=== PATIENT | male | born 1945 | race Caucasian/White ===

== ENCOUNTER 2017-01-31 10:30 | Inpatient (IN) | payer MEDICARE ==
[2017-01-31] MEDS ORDERED: Azithromycin 250 MG TAB ONE (12:18)
[2017-01-31] MEDS ORDERED: cefTRIAXone\\ROCEPHIN 1 GM VIAL ONE (12:18)
[2017-01-31] MEDS ORDERED: Sodium Chloride 0.9% 100 ML ONE (12:19)
[2017-01-31] MEDS ORDERED: Sodium Chloride 0.9% 0 ML ONE (12:19)
--- NOTE | 2017-01-31 13:49 | CT ---
CT ABDOMEN AND PELVIS PERFORMED WITHOUT CONTRAST ENHANCEMENT: History: Abdominal pain and bloating, Shortness of breath. FINDINGS: There are moderate bilateral pleural effusions, right larger than left. There is atelectatic appearin g changes in the right lung base and more of an infiltrative appearing process within the lingula and left lower lobe. This could indicate asymmetric edema but I would favor this being pneumonic in natu re. The liver and spleen are within normal limits of size. Gallbladder is mildly distended. Pancreas is o bscured by unopacified bowel loops. There is some pancreatic calcifications in the pancreatic head an d body region. Right and left adrenal glands are normal in appearance. Vascular calcifications related to both right and left kidneys are noted. There is also a right sided pelvic transplant kidney which is not obstru cted. There is moderate ascites noted. CT OF PELVIS PERFORMED WITHOUT CONTRAST ENHANCEMENT: Ascites is noted. No adenopathy or mass. IMPRESSION: 1. Moderate bilateral pleural effusions, right larger than left, with right lower lobe atelectatic ch anges. 2. Patchy infiltrative appearing changes which have the appearance more of a pneumonic infiltrate inv olving the lingula and left lower lobe. 3. Moderate ascites. 4. Transplanted right kidney which is not obstructed. POS: TAHMINA
[2017-01-31 14:01] LABS: Troponin I 0.029 ng/mL (< 0.028)
--- NOTE | 2017-01-31 14:13 | RAD ---
FRONTAL VIEW CHEST: INDICATIONS: Difficulty breathing. COMPARISON: No prior comparisons are available. FINDINGS: There is moderate right pleural fluid, and there is mild left pleural fluid. Bilateral alveolar opac ities, left greater than right, may relate to edema. Superimposed pneumonia is not excluded. There is enlargement of the cardiac silhouette and pulmonary vasculature, with evidence of a prior sternoto my. There is vascular calcification and osseous degenerative change. Surgical anchors are seen at t he right humerus. Metallic clip is seen at the left axilla. IMPRESSION: Findings most consistent with decompensated congestive heart failure. Superimposed pneumonia is not excluded. Followup to resolution is recommended. POS: RHEA
[2017-01-31 14:20] LABS: ALT (SGPT) 22 U/L (8-55); AST (SGOT) 21 U/L (5-34); Alkaline Phosphatase 60 U/L (40-150); Anion Gap 13 mmol/L (10-20); BUN (Urea Nitrogen) 23 mg/dL (8.4-25.7); Bilirubin, Total 0.4 mg/dL (0.2-1.2); Calc. Creatinine Clearance 0 mL/min (70-130); Calcium 8.9 mg/dL (7.8-10.44); Carbon Dioxide 23 mmol/L (23-31); Chloride 111 mmol/L (98-107); Estimated GFR-MDRD 37; Globulin 2.6 g/dL (2.4-3.5); Lipase Less than 4 U/L (8-78)
[2017-01-31 14:21] LABS: Troponin I 0.031 ng/mL (< 0.028)
[2017-01-31 14:38] LABS: #Basophils 0.1 thou/uL (0.0-0.2); #Monocytes 1.5 thou/uL (0.11-0.59); #Neutrophils 13.3 thou/uL (1.40-6.50); %Basophils 0.9 % (0.0-1.0); %Eosinophils 0.1 % (0.0-10.0); %Lymphocytes 6.3 % (21.0-51.0); %Monocytes 9.6 % (0.0-10.0); Hematocrit 30.4 % (42.0-52.0); Mean Platelet Volume 6.5 fL (7.4-10.4); Red Blood Cell (RBC) Count 3.34 mill/uL (4.70-6.10)
[2017-01-31] MEDS ORDERED: Acetaminophen 325 MG TAB PO PRN ×2 (15:19→15:48)
[2017-01-31] MEDS ORDERED: Ondansetron HCl/PF 4 MG/2 ML Vial IVP PRN ×2 (15:19→15:48)
[2017-01-31] MEDS ORDERED: Ondansetron ODT 4 MG TAB SL PRN (15:19)
[2017-01-31] MEDS ORDERED: Loratadine 10 MG TAB PO PRN (15:48)
[2017-01-31] MEDS ORDERED: Ondansetron ODT 4 MG TAB PO PRN (15:48)
[2017-01-31] MEDS ORDERED: cloNIDine 0.1 MG TAB PO PRN (15:48)
[2017-01-31] MEDS ORDERED: Diabetic Tussin 200 MG/10 ML UDCUP PO PRN (15:48)
[2017-01-31] MEDS ORDERED: Zolpidem Tartrate 5 MG TAB PO PRN (15:48)
[2017-01-31] MEDS ORDERED: HYDROcodone/Acetaminophen 5/325 mg Tablet PO PRN (15:48)
[2017-01-31] MEDS ORDERED: Nitroglycerin 0.4 MG TAB (25 Tab Bottle) SL PRN (15:48)
[2017-01-31] MEDS ORDERED: Dextrose 50% Abboject 50 ML SYRINGE SLOW IVP PRN (15:48)
[2017-01-31] MEDS ORDERED: Artificial Tears 18 DROP/0.9 ML EA EYE PRN (15:48)
[2017-01-31] MEDS ORDERED: Dextrose 5% in Water 1,000 ML IV PRN (15:48)
[2017-01-31] MEDS ORDERED: Mag-Al 1200 mg/1200 mg/30 ML UDCUP PO PRN (15:48)
[2017-01-31] MEDS ORDERED: Senokot 8.6 MG TAB PO PRN (15:48)
[2017-01-31] MEDS ORDERED: Loperamide HCl 2 MG CAP PO PRN (15:48)
[2017-01-31] MEDS ORDERED: Eucerin (Mineral Oil/Petrolatum,White) 30 gm Jar TOP PRN (15:48)
[2017-01-31] MEDS ORDERED: Milk Of Magnesia 30 ML UDCUP PO PRN (15:48)
[2017-01-31] MEDS ORDERED: Sodium Chloride 0.65% Nasal 44 ML BOT EA NARE PRN (15:48)
[2017-01-31] MEDS ORDERED: cefTRIAXone\\ROCEPHIN 1 GM in Sodium Chloride 0.9% 100 ML IVPB SCH (15:48)
[2017-01-31] MEDS ORDERED: Chloraseptic Spray 180 ml Bottle PO PRN (15:48)
[2017-01-31] MEDS ORDERED: Calcium Carbonate 500 MG ChewTAB PO PRN (17:13)
[2017-01-31] MEDS ORDERED: Acetaminophen/Codeine 30-300mg Tablet PO PRN (17:13)
[2017-01-31] MEDS ORDERED: Sodium Chloride 0.9% 10 ML ONE (17:26)
--- NOTE | 2017-01-31 17:30 | HP ---
PRIMARY CARE PHYSICIAN: Dr. Chito Zabala. PRIMARY PILLOWCASE CLEANER: Dr. Kim. REASON FOR ADMISSION: Anasarca, acute on chronic congestive heart failure, acute kidney failure, and pneumonia. HISTORY OF PRESENT ILLNESS: A 71-year-old male who has history of coronary artery disease required C ABG as well as history of end-stage renal disease, was on dialysis and subsequently patient required kidney transplantation and patient is on immunosuppressive therapy. Patient reports that in April he had kidney transplantation done. Before that, he had cardiac wor kup and they found a blockage and patient was advised CABG, which was done in [place]. Patient was s upposed to follow up with nurse transplant tomorrow. Patient does have increasing shortness of breath fo r the last 2-3 weeks. The patient also noticed increasing lower extremity edema as well as abdominal distention for the last 4-5 days. He is having orthopnea. He is not able to sleep flat. He is hav ing cough. He is having chills. He was feeling more and more weak. He was having shortness of macy th even after walking a few steps. Last night and this morning, patient's condition was gotten more worse. He was not able to breathe at all and that is why he decided to go to [facility]. Patient was trying Gas-X and home medication, but his abdominal distention and gas was not improving. He was feeling more and more bloating and abdominal distention. REVIEW OF SYSTEMS: The following complete review of systems was negative, unless otherwise mentioned in the HPI or below: CONSTITUTIONAL: Weight loss or gain, ability to conduct usual activities. SKIN: Rash, itching. EYES: Double vision, pain. ENT/MOUTH: Nose bleeding, neck stiffness, pain, tenderness. CARDIOVASCULAR: Palpitations, dyspnea on exertion, orthopnea. RESPIRATORY: Shortness of breath, wheezing, cough, hemoptysis, fever or night sweats. GASTROINTESTINAL: Poor appetite, abdominal pain, heartburn, nausea, vomiting, constipation, or diarr hea. GENITOURINARY: Urgency, frequency, dysuria, nocturia. MUSCULOSKELETAL: Pain, swelling. NEUROLOGIC/PSYCHIATRIC: Anxiety, depression. ALLERGY/IMMUNOLOGIC: Skin rash, bleeding tendency. Please see my HPI for pertinent positives and negatives. All other review of systems reviewed and ne gative except as mentioned in the HPI. ADDITIONAL INFORMATION: Patient denies any cough, hemoptysis, lower extremity cramps. He denies any fever, but he was feeling chills and weak. He denies any recent travel or sick exposure. He denies any UTI symptoms. He denies any constipation, diarrhea, melena or hematochezia. ALLERGIES: AMLODIPINE, DOXAZOSIN, HYDRALAZINE. CURRENT HOME MEDICATIONS: Aspirin 81 mg p.o. daily, clonidine 0.2 mg twice daily, Lasix 20 mg twice daily, hydrochlorothiazide 25 mg p.o. daily, pravastatin 20 mg p.o. daily, CellCept 500 mg twice mya y, prednisone 5 mg daily, Bactrim DS 1 tablet Sunday, Sunday, Sunday, Coreg 25 mg twice daily, Pro cardia XL 90 mg twice daily, Protonix 40 mg twice daily, Tylenol #3 one tablet q.6 hourly p.r.n., candi citriol 0.5 mcg p.o. daily, Uloric 80 mg p.o. daily, calcitriol 0.5 mcg p.o. daily, sodium bicarbonat e 650 mg 2 tablets twice daily, Humalog insulin as per sliding scale per protocol, vitamin 1 tablet p.o. daily, tacrolimus 0.5 mg 2 tablets twice daily. PAST MEDICAL HISTORY: Diabetes type 2 on insulin. He has history of end-stage renal disease on hemo dialysis before and status post kidney transplantation, hypertension, dyslipidemia, gastroesophageal reflux disease, coronary artery disease required CABG, hypertension, anemia of renal disease, hyperur icemia, secondary hyperparathyroidism of renal origin, chronic physical deconditioning. PAST SURGICAL HISTORY: CABG x4, dialysis shunt in left upper extremity, peritoneal dialysis catheter , bilateral cataract surgery, bilateral shoulder surgery for spur, back surgery, left thumb joint robin nick, kidney transplantation. PAST PSYCHIATRIC HISTORY: Reviewed and negative. SOCIAL HISTORY: Patient is and lives at home with his . He is an ex-smoker. He quit sm oking in 2016. He denies any alcohol abuse. He denies any other illicit drug abuse. His is pr esent at bedside. FAMILY HISTORY: No strong family history of premature coronary artery disease, stroke or cancer. EMERGENCY ROOM COURSE: Patient is given DuoNeb therapy, Rocephin 1 gram, azithromycin 500 mg and asp irin 243 mg. PHYSICAL EXAMINATION: VITAL SIGNS: On arrival, blood pressure 142/47, pulse 74, respiratory rate 22, temperature 98.5, sat uration 93% on 2 liter oxygen. Weight 73.4 kilograms. GENERAL: Patient is currently alert, oriented, weak, in no acute distress. HEAD: Normocephalic, atraumatic. EYES: Pupils round, reactive to light. Extraocular muscle intact. Puffiness of eyelid noted. ENT: Oropharynx within normal limits. Moist mucous membranes. No oral lesions. No pharyngeal eryt simone, no exudate. NECK: Supple, elevated JVD, no thyromegaly, no carotid bruit, no meningeal signs of irritation. LUNGS: Air entry reduced in bilateral lower lobes. Few basilar rales noted. No wheeze, no rhonchi. No accessory muscles of respiration in use. CARDIAC: S1, S2 regular. No murmur elicited, no gallop, no rub. ABDOMEN: Abdominal distention, ascites present. No peritoneal signs, no guarding, no rigidity, no r ebound, no suprapubic tenderness. Abdominal wall edema noted. BACK: Back wall edema noted. No point tenderness, no CVA tenderness. EXTREMITIES: Upper extremity: Passive movement of all joints are normal. AV fistula with good brui t noted. Lower extremity: Edema noted in bilateral lower extremities up to thigh level. NEUROLOGIC: Nonfocal examination. The patient moves all 4 limbs, plantar bilateral flexor. SKIN: No skin rash. HEMATOLOGIC: No lymphadenopathy. PSYCHIATRIC: Normal affect. SIGNIFICANT LABS: EKG based on my review: Premature atrial complexes, inferior infarct, nonspecific ST-T changes. Chest x-ray based on my review, pulmonary edema, bilateral pleural effusions. Abdome n and pelvis showing ascites, moderate bilateral pleural effusion and infiltrative changes in lingula and left lower lobe. CBC: WBC 16.0, hemoglobin 9.6, platelets 194 with a left shift. BMP: Sodium 143, potassium 4.0, ch loride 111, carbon dioxide 23, anion gap 13, BUN 23, creatinine 1.81, glucose 171, calcium 8.9. Lact ic acid 1.5. LFT: AST 21, ALT 22, alkaline phosphatase 60, albumin 3.4, lipase less than 4, CK-MB 2.5, troponin 0 .031. BNP 1409. ASSESSMENT AND PLAN/IMPRESSION: 1. Acute on chronic congestive heart failure exacerbation, most likely systolic and diastolic dysfun ction. We will obtain echocardiography to confirm ejection fraction. The patient will need Lasix 40 mg IV b.i.d. and fluid restriction 1500 mL per day. We will continue with Coreg 25 mg p.o. twice da gretchen. Cardiac rehabilitation will be consulted. We will monitor daily weight and replace electrolyte s as needed basis. 2. Acute hypoxic respiratory failure due to fluid overload status. We will provide oxygen to keep s aturation above 92% and will monitor daily oxygen requirement while in hospital. 3. Acute kidney failure. We will monitor renal function. We will consult Dr. Kim. We will check u rinalysis, urine sodium, urine creatinine, most likely related with cardiorenal syndrome. 4. Anasarca. Patient has ascites, pleural effusion, abdominal wall edema, lower extremity edema lik anna due to problem #1. Renal failure is also possible. We will monitor while in hospital. 5. Community-acquired pneumonia with immunosuppressive status. We will continue with Rocephin 1 gra m q.24 hourly, Levaquin 500 mg IV daily, DuoNeb q.6 hourly, Mucinex 600 mg twice daily. 6. Chronic immunosuppressive status for kidney transplant. We will resume patient's prednisone, tac rolimus, CellCept dose as per home dosage. We will also continue with Bactrim DS as a prophylactic t herapy. 7. Hypertension. We will continue clonidine 0.2 mg twice daily along with Procardia XL 90 mg twice daily, hydrochlorothiazide 25 mg p.o. daily, and titrate blood pressure medication while in hospital. 8. Coronary artery disease with history of coronary artery bypass graft. We will continue aspirin 8 1 mg p.o. daily, pravastatin 20 mg p.o. at bedtime, Coreg 25 mg twice daily. 9. Gastroesophageal reflux disease. We will continue Protonix 40 mg p.o. daily. 10. Anemia of renal disease. We will continue ferrous sulfate 325 mg p.o. daily. 11. Metabolic acidosis. We will continue sodium bicarbonate as per home dosage. 12. Secondary hyperparathyroidism of renal origin. We will continue Uloric 80 mg p.o. daily. 13. Deep venous thrombosis prophylaxis, heparin 5000 units subQ twice daily. 14. Gastrointestinal prophylaxis, Protonix 40 mg p.o. daily. 15. CODE STATUS: The patient is FULL CODE. The patient's is surrogate decision maker. Disposition plan based on clinical course. We are expecting patient's stay in hospital more than 2 m idnights. Plan of care discussed with the patient and family member at bedside in detail.
[2017-01-31 18:47] LABS: Troponin I 0.023 ng/mL (< 0.028)
[2017-02-01] MEDS: Carvedilol 25 MG TAB PO SCH ×3 (00:44→18:19)
[2017-02-01] MEDS: cloNIDine 0.2 MG TAB PO SCH ×4 (00:44→21:01)
[2017-02-01] MEDS: hydrALAZINE 25 MG TAB PO SCH ×5 (00:45→21:00)
[2017-02-01] MEDS: NIFEdipine XL 90 MG TAB PO SCH ×3 (00:46→18:20)
[2017-02-01] MEDS: Mycophenolate 250 MG CAP PO SCH ×3 (00:46→20:59)
[2017-02-01] MEDS: Pravastatin Sodium 20 MG TAB PO SCH ×2 (00:47→21:02)
[2017-02-01] MEDS: Prenatal Vitamin 1 TAB PO SCH ×2 (00:48→18:20)
[2017-02-01] MEDS: Sodium Bicarbonate Tab 325 MG TAB PO SCH ×3 (00:49→21:00)
[2017-02-01] MEDS: Tacrolimus 1 MG CAP PO SCH ×3 (00:49→20:59)
[2017-02-01] MEDS: Furosemide 40 MG/4 ML VIAL SLOW IVP SCH ×2 (05:05→13:30)
[2017-02-01 05:10] LABS: #Basophils 0.1 thou/uL (0.0-0.2); #Eosinphils 0.1 thou/uL (0.0-0.7); #Lymphocytes 1.5 thou/uL (1.20-3.40); #Monocytes 0.7 thou/uL (0.11-0.59); #Neutrophils 6.5 thou/uL (1.40-6.50); %Basophils 0.7 % (0.0-1.0); %Eosinophils 0.6 % (0.0-10.0); %Lymphocytes 17.3 % (21.0-51.0); %Monocytes 7.3 % (0.0-10.0); Hematocrit 27.3 % (42.0-52.0); Mean Platelet Volume 8.7 fL (7.4-10.4); Red Blood Cell (RBC) Count 2.86 mill/uL (4.70-6.10); White Blood Cell (WBC) Count 8.8 thou/uL (4.8-10.8)
[2017-02-01 05:18] LABS: ALT (SGPT) 15 U/L (8-55); AST (SGOT) 15 U/L (5-34); Alkaline Phosphatase 53 U/L (40-150); Anion Gap 10 mmol/L (10-20); BUN (Urea Nitrogen) 22 mg/dL (8.4-25.7); Bilirubin, Total 0.4 mg/dL (0.2-1.2); Calc. Creatinine Clearance 56 mL/min (70-130); Calcium 8.4 mg/dL (7.8-10.44); Carbon Dioxide 25 mmol/L (23-31); Chloride 109 mmol/L (98-107); Estimated GFR-MDRD 52; Globulin 2.3 g/dL (2.4-3.5); Protein, Total 5.3 g/dL (5.8-8.1)
[2017-02-01] MEDS: Hydrochlorothiazide 25 MG TAB PO SCH (06:39)
[2017-02-01] MEDS: Aspirin 81 mg Enteric Coated Tablet PO SCH (08:53)
[2017-02-01] MEDS: Calcitriol 0.25 MCG CAP PO SCH (08:54)
[2017-02-01] MEDS: Saccharomyces boulardii 250 MG CAP PO SCH (08:55)
[2017-02-01] MEDS: predniSONE 5 MG TAB PO SCH (08:55)
[2017-02-01] MEDS: Enoxaparin Sodium 30 MG/0.3 ML SYRINGE SC SCH (08:58)
[2017-02-01] MEDS: INSULIN DEGLUDEC 5 UNIT SC SCH ×2 (10:21)
[2017-02-01] MEDS: (Febuxostat [Uloric] 80 MG) PO SCH ×2 (10:21)
--- NOTE | 2017-02-01 10:40 | CON ---
DATE OF SERVICE: 02/01/2017 RENAL MEDICINE HISTORY OF PRESENT ILLNESS: Mr. Caldera is a 71-year-old white male who is status post ESRD, status po st cadaveric renal transplant and admitted for shortness of breath. We are now being consulted for maintenance of his immunosuppressive regimen secondary to his renal tr ansplant. His shortness of breath has much improved this morning. According to the patient, he deve loped shortness of breath a week ago. It was noted to be transient, but this recurred back in the la st few days. According to the patient and his , he denied any associated fever or chills. REVIEW OF SYSTEMS: Positive for shortness of breath, no chest pain, no syncopal episode, no nausea, no vomiting, no fever or chills. No gross hematuria. No dysuria, no frequency, no abdominal tendern ess. Appetite and energy level is fair. No headache, no diplopia, no syncopal episode, no sore thro at. No joint pains, no hematochezia, no melena, no hematemesis, no syncopal episode, no sore throat. MEDICATIONS: Currently on Tylenol #3 q.6 p.r.n., [place] 5/325 q.4 p.r.n., Ecotrin 81 mg tab a day, ca lcitriol 0.5 mcg every day, Tums 1000 mg p.r.n., Coreg 25 mg p.o. b.i.d., ceftriaxone 1 gram IV daily , clonidine 0.1 mg q.4 p.r.n., clonidine 0.2 mg p.o. b.i.d., Lovenox 30 mg subcu daily, furosemide 40 mg IV daily, hydralazine 50 mg p.o. t.i.d., hydrochlorothiazide 25 mg once a day, Humalog sliding sc jade, Levaquin 500 mg IV daily, CellCept 500 mg p.o. b.i.d., nifedipine 90 mg p.o. b.i.d., Nitrostat p .r.n., Uloric 80 mg q.a.m., Pravachol 20 mg q.p.m. Please note that these home meds included Prograf 6 mg p.o. b.i.d. PAST MEDICAL HISTORY: 1. Status post ESRD - previously on dialysis, but received a renal transplant; hypertension; coronar y artery disease; history of hyperlipidemia; type 2 diabetes mellitus; GERD; coronary artery disease; hyperuricemia; secondary/tertiary hyperparathyroidism. PAST SURGICAL HISTORY: 1. Status post cadaveric renal transplant. 2. Status post cardiac catheterization. 3. Status post CABG. 4. Status post PD catheter placement. 5. Status post back surgery. 6. Status post hand surgery. 7. Status post bilateral shoulder surgery. SOCIAL HISTORY: The patient lives in [place]. , lives with his . Used to smoke - for the last 30 years, 1 pack a day? no alcohol. Status post blood transfusions. Sedentary lifest yle. FAMILY HISTORY: No family history of ESRD. ALLERGIES: Relatively unknown. TRAUMA: None. IMMUNIZATIONS: Up to date. HOSPITALIZATIONS: Please see past medical history. PHYSICAL EXAMINATION: VITAL SIGNS: Blood pressure is 168/80, heart rate 61, respiratory rate 18, pulse ox 96%. GENERAL: Noted to be awake, alert, comfortable, not in overt distress. SKIN: Adequate turgor. HEENT: Slightly pale conjunctivae, anicteric sclerae. NECK: No neck mass, no carotid bruits, no JVD. CHEST: No deformities. LUNGS: Decreased breath sounds. HEART: Normal sinus rhythm. No murmur, no gallops, no rubs. ABDOMEN: Globular, soft, nontender, no masses. Positive for bowel sounds. Negative for epigastric bruits. GROIN: No inguinal lymphadenopathy. Please note that the renal allograft is nontender. EXTREMITIES: No edema, no deformities. LABORATORY DATA AND IMAGIN. Laboratories of 02/01/2017; white count 8.8, hemoglobin 9, hematocrit 27.3, sodium 140, potassium 3.9, chloride 109, carbon dioxide 25, BUN 32, creatinine 1.35, glucose 110, calcium 8.4, AST is 15, ALT is 15, albumin 3.0. 2. Cardiac echo tentative report shows EF is said to be within normal. 3. On 01/31/2017, chest x-ray shows CHF. 4. CT scan of the abdomen and pelvis showed moderate bilateral pleural effusions, right larger than left patchy infiltrate, appearance more of a pneumonic infiltrate, moderate ascites, transplanted rig ht kidney noted and there is no obstruction. ASSESSMENT AND PLAN: 1. Shortness of breath - secondary to congestive heart failure. He may have diastolic dysfunction. His tentative report with his cardio echo shows a normal ejection fraction. Agree with current eliecer coleman. Continue current diuretic regimen. 2. Status post cadaveric renal transplant. Creatinine is noted at 1.35. According to the , thi s is near baseline. I would suggest we will resume back his Prograf, the way he is taking at home at 6 mg p.o. b.i.d. 3. He will also continue current dose of CellCept. 4. Anemia. Continue to observe. 5. Tertiary hyperparathyroidism. We will recheck PTH in a.m. Overall, agree with current management.
--- NOTE | 2017-02-01 11:13 | PDOC.PN ---
- Subjective Encounter Start Date: 02/01/17 Encounter Start Time: 11:12 Subjective: I FEEL MUCH BETTER - Objective Resuscitation Status: Resuscitation Status FULL:Full Resuscitation MAR Reviewed: Yes Vital Signs & Weight: Vital Signs (12 hours) Temp Pulse Resp BP BP Pulse Ox 02/01/17 08:01 96 02/01/17 08:00 98.9 F 60 17 146/63 H 100 02/01/17 07:59 61 18 96 02/01/17 05:05 58 L 168/80 H 02/01/17 04:47 95 02/01/17 04:00 98.1 F 57 L 18 164/70 H 92 L 02/01/17 00:46 58 L 02/01/17 00:45 58 L Weight Weight 167 lb 4.8 oz I&O: 01/31/17 02/01/17 02/02/17 06:59 06:59 06:59 Intake Total 900 Output Total 2425 Balance -1525 Result Diagrams: 02/01/17 04:18 02/01/17 04:18 Additional Labs: Accuchecks 02/01/17 01/31/17 05:04 20:37 POC Glucose 115 H 163 H Phys Exam - Physical Examination Constitutional: NAD HEENT: PERRLA, moist MMs, sclera anicteric Neck: supple, full ROM Respiratory: no wheezing, no rhonchi Cardiovascular: RRR Gastrointestinal: soft, non-tender, positive bowel sounds Musculoskeletal: no edema, pulses present Neurological: non-focal, moves all 4 limbs Psychiatric: normal affect, A&O x 3 Skin: no rash Dx/Plan (1) Diastolic CHF, acute Code(s): I50.31 - ACUTE DIASTOLIC (CONGESTIVE) HEART FAILURE Status: Acute (2) Anemia of renal disease Code(s): D63.1 - ANEMIA IN CHRONIC KIDNEY DISEASE Status: Chronic (3) CAD (coronary artery disease) Code(s): I25.10 - ATHSCL HEART DISEASE OF [place] CORONARY ARTERY W/O ANG PCTRS Status: Chronic (4) Dyslipidemia Code(s): E78.5 - HYPERLIPIDEMIA, UNSPECIFIED Status: Chronic (5) Secondary hyperparathyroidism of renal origin Code(s): N25.81 - SECONDARY HYPERPARATHYROIDISM OF RENAL ORIGIN Status: Chronic - Plan cont current plan of care, plan discussed w/ family, respiratory therapy PT IMPROVED, HOME ONCE CLEARED BY RENAL AND CARDS * .
[2017-02-01] MEDS: HumaLOG 300 UNITS/3 ML VIAL SC PRN ×2 (12:07→17:03)
[2017-02-01] MEDS: cefTRIAXone\\ROCEPHIN 1 GM, Syringe 0.4 ML in Sterile Water 9.6 ML SLOW IVP SCH (13:30)
--- NOTE | 2017-02-01 15:39 | CON ---
DATE OF CONSULTATION: 02/01/2017 CARDIOLOGY CONSULTATION REASON FOR CONSULTATION: Heart failure. HISTORY OF PRESENT ILLNESS: Mr. Caldera is a very pleasant 71-year-old white gentleman who comes to [facility] for shortness of breath. He was admitted with diagnosis of heart failure, unknown if syst olic or diastolic. He has a significant history of coronary artery disease with 3-vessel bypass abou t 2 years ago. He was on hemodialysis at that time for end-stage renal disease and had kidney transp lant done soon after the bypass. He has had this transferred for about a year and half now. He had been doing great. He states for the last month at least he has been having shortness of breath on an d off and actually a couple of nights ago the shortness was so bad that he had to come in. He was fo und to be in heart failure with ascites and pleural effusions and pulmonary edema on chest x-ray. He was given Lasix and diuresed and he states he feels much better now. He tells me that he has been w alking around with PT and is feeling much better than it was before. PAST MEDICAL HISTORY: 1. Type 2 diabetes. 2. End-stage renal disease on hemodialysis before and then kidney transplantation about a year and h avelina ago. 3. Hypertension. 4. Hyperlipidemia. 5. GERD. 6. Coronary artery disease, status post bypass x3. 7. Anemia of chronic disease. 8. Hyperuricemia. 9. Hyperparathyroidism. 10. Chronic deconditioning. PAST SURGICAL HISTORY: 1. CABG x3. 2. Dialysis shunt in left upper extremity. 3. Peritoneal dialysis catheter. 4. Bilateral cataract surgery. 5. Bilateral shoulder surgery. 6. Back surgery. 7. Left thumb. 8. Kidney transplantation. SOCIAL HISTORY: Quit smoking in 2016. No alcohol or drug use. FAMILY HISTORY: Noncontributory. OUTPATIENT MEDICATIONS: Include, 1. Aspirin 81 daily. 2. Clonidine 0.2 mg twice a day. 3. Lasix 20 mg b.i.d. 4. Hydrochlorothiazide 25 mg a day. 5. Pravastatin 20 mg a day. 6. CellCept 500 mg twice a day. 7. Prednisone 5 mg. 8. Bactrim DS Sunday, Sunday, and Sunday. 9. Coreg 25 mg twice a day. 10. Procardia-XL 90 mg twice a day. 11. Protonix 40 mg twice a day. 12. Tylenol 3 p.r.n. pain. 13. Calcitriol. 14. Uloric. 15. Sodium bicarbonate 650 mg 2 tablets twice a day. 16. Humalog insulin sliding scale. 17. vitamins. 18. Tacrolimus 0.5 mg 2 tablets twice a day. ALLERGIES: 1. AMLODIPINE. 2. DOXAZOSIN. 3. HYDRALAZINE. REVIEW OF SYSTEMS: A 12-point review of systems was done and is all negative unless stated in the his tory of present illness. PHYSICAL EXAMINATION: VITAL SIGNS: Temperature 97.5, pulse 55, respiratory rate 18, satting 92% on 2 liters, blood pressur e 167/74. GENERAL: Awake, alert, oriented x3, in no distress. HEENT: Normocephalic, atraumatic. NECK: Supple. LUNGS: Have crackles at the left base. CARDIOVASCULAR: S1 and S2. There is a grade 3/6 systolic murmur at the right upper sternal border a nd a grade 3/6 holosystolic murmur at the apex. ABDOMEN: Soft, positive bowel sounds. EXTREMITIES: No edema. SKIN: Warm and dry. LABORATORY DATA AND IMAGIN. Laboratory work was reviewed. White count of 16, down to 8.8 now, hemoglobin 9, hematocrit 27, p latelet count 161. Chemistry was reviewed. Creatinine 1.35, BUN of 22. Troponin was 0.02 and then 0.02, albumin of 3.0. 2. EKG is reviewed. 3. CT of the abdomen and pelvis was reviewed. ASSESSMENT: 1. Acute decompensated heart failure. 2. Coronary artery disease, status post bypass 2 years ago. 3. Possible left lower lobe pneumonia. 4. End-stage renal disease status post kidney transplantation. 5. Immunocompromise state secondary to kidney transplantation. PLAN: 1. Echocardiogram is pending. 2. Would give him 1 more day of IV Lasix and then switch him to his regular p.o. dose. 3. IV antibiotics per primary team already in place. 4. Further recommendations per results of echocardiogram.
[2017-02-02 05:36] LABS: #Eosinphils 0.1 thou/uL (0.0-0.7); #Lymphocytes 1.2 thou/uL (1.20-3.40); #Monocytes 0.9 thou/uL (0.11-0.59); #Neutrophils 9.3 thou/uL (1.40-6.50); %Basophils 0.1 % (0.0-1.0); %Eosinophils 0.5 % (0.0-10.0); %Lymphocytes 10.2 % (21.0-51.0); Hematocrit 29.9 % (42.0-52.0); Mean Platelet Volume 9.1 fL (7.4-10.4); Red Blood Cell (RBC) Count 3.13 mill/uL (4.70-6.10); White Blood Cell (WBC) Count 11.5 thou/uL (4.8-10.8)
[2017-02-02 05:45] LABS: Anion Gap 10 mmol/L (10-20); BUN (Urea Nitrogen) 22 mg/dL (8.4-25.7); Calc. Creatinine Clearance 50 mL/min (70-130); Calcium 8.4 mg/dL (7.8-10.44); Carbon Dioxide 25 mmol/L (23-31); Chloride 106 mmol/L (98-107); Estimated GFR-MDRD 46
[2017-02-02] MEDS: Furosemide 40 MG/4 ML VIAL SLOW IVP SCH ×2 (06:18→13:47)
[2017-02-02] MEDS ORDERED: Lidocaine 1% PF 5 ML VIAL ONE (09:36)
[2017-02-02] MEDS ORDERED: Propofol 200 MG/20 ML VIAL ONE (09:36)
--- NOTE | 2017-02-02 10:09 | PDOC.CTH ---
Cardiology Progress Note - Subjective No new issues. - Objective Vital Signs Temp Pulse Resp BP Pulse Ox 02/02/17 08:03 91 L 02/02/17 08:01 63 12 02/02/17 08:00 97.4 F L 63 12 180/80 H 94 L 02/02/17 04:00 98.7 F 64 18 172/67 H 97 02/02/17 00:19 63 16 96 02/01/17 22:46 58 L 168/68 H Weight 167 lb 4.8 oz 02/01/17 02/02/17 02/03/17 06:59 06:59 06:59 Intake Total 900 1280 Output Total 2428 7420 625 Balance -7941 -5100 -625 - Physical Examination General/Neuro: alert & oriented x3, NAD Neck: no JVD present Lungs: unlabored respirations Heart: RRR Abdomen: NT/ND Extremities: other: (no edema.) - Telemetry Telemetry Rhythm: NSR - Labs Result Diagrams: 02/02/17 05:02 02/02/17 05:02 Troponin/CKMB CK-MB (CK-2) 2.5 ng/mL (0-6.6) 01/31/17 10:50 Troponin I 0.023 ng/mL (< 0.028) 01/31/17 18:10 - Assessment/Plan 1. Acute on chronic diastolic heart failure. 2. Fevers and chills 3. 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 PLAN: - VALERY performed shows a very small flail mass on the non coronary cusp. This could be related to an acute vegetation, blood cultures negative so far. I reviewed the echo from 2013 and his aortic valve had mild AI, it now looks mild to moderate but not a big change in amount of insufficiency. The valve did look much rope cleaner on echo in 2013. Would have to consider this is AV endocarditis unless proven otherwise and would treat as such given his immunocompromised state. - ID consult recommended.
[2017-02-02] MEDS: NIFEdipine XL 90 MG TAB PO SCH ×2 (10:52→21:12)
[2017-02-02] MEDS: Calcitriol 0.25 MCG CAP PO SCH (10:52)
[2017-02-02] MEDS: Carvedilol 25 MG TAB PO SCH ×2 (10:53→21:10)
[2017-02-02] MEDS: predniSONE 5 MG TAB PO SCH (10:53)
[2017-02-02] MEDS: Aspirin 81 mg Enteric Coated Tablet PO SCH (10:54)
[2017-02-02] MEDS: cloNIDine 0.2 MG TAB PO SCH ×2 (10:54→21:10)
[2017-02-02] MEDS: Saccharomyces boulardii 250 MG CAP PO SCH (10:56)
[2017-02-02] MEDS: Tacrolimus 1 MG CAP PO SCH ×2 (10:57→21:13)
[2017-02-02] MEDS: Mycophenolate 250 MG CAP PO SCH ×2 (11:01→21:10)
[2017-02-02] MEDS: (Febuxostat [Uloric] 80 MG) PO SCH ×2 (11:10)
[2017-02-02] MEDS: Hydrochlorothiazide 25 MG TAB PO SCH (11:31)
[2017-02-02] MEDS: Sodium Bicarbonate Tab 325 MG TAB PO SCH ×2 (11:31→21:13)
[2017-02-02] MEDS: Enoxaparin Sodium 30 MG/0.3 ML SYRINGE SC SCH (11:32)
--- NOTE | 2017-02-02 11:38 | PDOC.PN ---
- Subjective Encounter Start Date: 02/02/17 Encounter Start Time: 11:00 Subjective: no sob or palp -: breathing better - Objective Resuscitation Status: Resuscitation Status FULL:Full Resuscitation MAR Reviewed: Yes Vital Signs & Weight: Vital Signs (12 hours) Temp Pulse Resp BP Pulse Ox 02/02/17 08:03 91 L 02/02/17 08:01 63 12 02/02/17 08:00 97.4 F L 63 12 180/80 H 94 L 02/02/17 04:00 98.7 F 64 18 172/67 H 97 02/02/17 00:19 63 16 96 Weight Weight 167 lb 4.8 oz I&O: 02/01/17 02/02/17 02/03/17 06:59 06:59 06:59 Intake Total 900 1280 Output Total 2427 8330 625 [facility] -1525 -1170 -625 Result Diagrams: 02/02/17 05:02 02/02/17 05:02 Additional Labs: Accuchecks 02/02/17 02/01/17 02/01/17 06:14 20:11 17:02 POC Glucose 231 H 166 H 275 H 02/01/17 11:56 POC Glucose 269 H Phys Exam - Physical Examination HEENT: PERRLA, moist MMs Neck: no nodes, no JVD Respiratory: no wheezing, no rales Cardiovascular: RRR, no significant murmur Gastrointestinal: soft, non-tender, positive bowel sounds Musculoskeletal: pulses present Neurological: non-focal, moves all 4 limbs Psychiatric: A&O x 3 Dx/Plan (1) Diastolic CHF, acute Code(s): I50.31 - ACUTE DIASTOLIC (CONGESTIVE) HEART FAILURE Status: Acute (2) Endocarditis Code(s): I38 - ENDOCARDITIS, VALVE UNSPECIFIED Status: Acute Qualifiers: Endocarditis type: infective Infective endocarditis organism: bacterial Chronicity: acute Qualified Code(s): I33.0 - Acute and subacute infective endocarditis Comment: over aortic valve area (3) DM type 2 (diabetes mellitus, type 2) Status: Chronic Qualifiers: Diabetes mellitus complication status: with kidney complications Diabetes mellitus complication detail: with chronic kidney disease Diabetes mellitus joint terminal attack controller insulin use: without joint terminal attack controller use Chronic kidney disease stage: stage 2 (mild) Qualified Code(s): E11.22 - Type 2 diabetes mellitus with diabetic chronic kidney disease; N18.2 - Chronic kidney disease, stage 2 (mild) ; N18.2 - Chronic kidney disease, stage 2 (mild) (4) H/O kidney transplant Status: Chronic Comment: is on prograf, cellcept and prednisone (5) Anemia of renal disease Code(s): D63.1 - ANEMIA IN CHRONIC KIDNEY DISEASE Status: Chronic (6) CAD (coronary artery disease) Code(s): I25.10 - ATHSCL HEART DISEASE OF [place] CORONARY ARTERY W/O ANG PCTRS Status: Chronic Qualifiers: Coronary Disease-Associated Artery/Lesion type: bypass graft [place] vs. transplanted heart: hoh heart Associated angina: without angina Qualified Code(s): I25.810 - Atherosclerosis of coronary artery bypass graft(s) without angina pectoris (7) Dyslipidemia Code(s): E78.5 - HYPERLIPIDEMIA, UNSPECIFIED Status: Chronic - Plan gentle diuresis -: dc hctz -: is on ceftriaxone and levaquin -: blood csx2 no growth, ID consult -: ?picc line, outpt antibiotics per ID advice * . Review of Systems - Medications/Allergies Allergies/Adverse Reactions: Allergies Allergy/AdvReac Type Severity Reaction Status Date / Time amlodipine AdvReac Verified 01/31/17 17:03 doxazosin AdvReac Stomach Verified 01/31/17 17:03 Ache hydralazine AdvReac Verified 01/31/17 17:03 Medications: Current Medications Acetaminophen (Tylenol) 650 mg PO Q4H PRN PRN Reason: Headache/Fever or Pain Acetaminophen/Codeine Phosphate (Tylenol #3) 1 tab PO Q6HR PRN PRN Reason: Pain Hydrocodone Bitart/Acetaminophen ([place] 5/325) 1 tab PO Q4H PRN PRN Reason: Moderate Pain (4-6) Al Hydroxide/Mg Hydroxide (Maalox) 30 ml PO Q6H PRN PRN Reason: Heartburn or Indigestion Albuterol/Ipratropium (Duoneb) 3 ml NEB [id number] [facility] Last Admin: 02/02/17 08:01 Dose: 3 ml Artificial Tears (Tears Naturale) 0 drop EA EYE PRN PRN PRN Reason: Dry Eyes Aspirin (Ecotrin) 81 mg PO DAILY [facility] Last Admin: 02/02/17 10:54 Dose: Not Given Calcitriol (Rocaltrol) 0.5 mcg PO DAILY [facility] Last Admin: 02/02/17 10:52 Dose: 0.5 mcg Calcium Carbonate (Tums) 1,000 mg PO PRN PRN PRN Reason: Heartburn or Indigestion Carvedilol (Coreg) 25 mg PO BID [facility] Last Admin: 02/02/17 10:53 Dose: 25 mg Clonidine (Catapres) 0.1 mg PO Q4H PRN PRN Reason: Systolic BP > 180 Clonidine (Catapres) 0.2 mg PO BID [facility] Last Admin: 02/02/17 10:54 Dose: 0.2 mg Dextrose/Water (Dextrose 50%) 25 gm SLOW IVP PRN PRN PRN Reason: Hypoglycemia Enoxaparin Sodium (Lovenox) 30 mg SC 0900 [facility] Last Admin: 02/02/17 11:32 Dose: 30 mg Furosemide (Lasix) 40 mg SLOW IVP 0600,1400 [facility] Last Admin: 02/02/17 06:18 Dose: 40 mg Glucagon (Glucagon) 1 mg IM PRN PRN PRN Reason: Hypoglycemia Guaifenesin (Robitussin Sf) 200 mg PO Q4H PRN PRN Reason: Cough Hydralazine HCl (Apresoline) 50 mg PO TID [facility] Last Admin: 02/01/17 21:00 Dose: 50 mg Hydrochlorothiazide (Hydrochlorothiazide) 25 mg PO DAILY [facility] Last Admin: 02/02/17 11:31 Dose: 25 mg Dextrose/Water (D5w) 1,000 mls @ 0 mls/hr IV .Q0M PRN; As Directed PRN Reason: Hypoglycemia Levofloxacin 500 mg/ Device 100 mls @ 100 mls/hr IVPB 1700 [facility] Last Admin: 02/01/17 17:02 Dose: 100 mls Ceftriaxone Sodium 1 gm/ (Syringe 0.4 ml/ Sterile Water) 10 mls @ 120 mls/hr SLOW IVP 1300 [facility] Last Admin: 02/01/17 13:30 Dose: 10 mls Insulin Human Lispro (Humalog) 0 units SC .MODERATE SLIDING SC PRN PRN Reason: Moderate Correctional Scale Last Admin: 02/01/17 17:03 Dose: 6 unit Insulin Human Lispro (Humalog) 0 units SC .BEDTIME SLIDING SC PRN PRN Reason: Bedtime Correctional Scale Loperamide HCl (Imodium) 2 mg PO PRN PRN PRN Reason: Diarrhea/Loose Stools Loratadine (Claritin) 10 mg PO DAILYPRN PRN PRN Reason: Sinus Symptoms Magnesium Hydroxide (Milk Of Magnesium) 30 ml PO DAILYPRN PRN PRN Reason: Constipation Mineral Oil/White Petrolatum (Eucerin Cream) 0 gm TOP BIDPRN PRN PRN Reason: Dry Skin Mycophenolate Mofetil (Cellcept) 500 mg PO BID [facility] Last Admin: 02/02/17 11:01 Dose: 500 mg Nifedipine (Procardia Xl) 90 mg PO BID [facility] Last Admin: 02/02/17 10:52 Dose: 90 mg Nitroglycerin (Nitrostat) 0.4 mg SL Q5MIN PRN PRN Reason: Chest Pain Ondansetron HCl (Zofran Odt) 4 mg PO Q6H PRN PRN Reason: Nausea/Vomiting Ondansetron HCl (Zofran) 4 mg IVP Q6H PRN PRN Reason: Nausea/Vomiting Pantoprazole Sodium (Protonix) 40 mg PO BID [facility] Last Admin: 02/02/17 10:53 Dose: 40 mg (Febuxostat [Uloric] (80 Mg)) 0 each PO QAM [facility] Last Admin: 02/02/17 11:10 Dose: 1 each (Insulin Degludec [ Tresiba Flextouch U- 100] 5 Unit) 0 each SC DAILY [facility] Last Admin: 02/01/17 10:21 Dose: 1 each Phenol (Chloraseptic [place] 180 Ml Bot) 0 ml PO PRN PRN PRN Reason: Sore Throat Pravastatin Sodium (Pravachol) 20 mg PO QPM [facility] Last Admin: 02/01/17 21:02 Dose: 20 mg Prednisone (Prednisone) 5 mg PO DAILY [facility] Last Admin: 02/02/17 10:53 Dose: 5 mg Multivit/Folic Acid/Iron ( Vitamin) 1 tab PO QPM [facility] Last Admin: 02/01/17 18:20 Dose: 1 tab Saccharomyces Boulardii (Florastor) 250 mg PO DAILY [facility] Last Admin: 02/02/17 10:56 Dose: 250 mg Senna (Senokot) 2 tab PO HSPRN PRN PRN Reason: Constipation Sodium Bicarbonate (Bicarbonate, Sodium) 1,300 mg PO BID [facility] Last Admin: 02/02/17 11:31 Dose: 1,300 mg Sodium Chloride ([place] Nasal [place] 0.65%) 0 ml EA NARE QIDPRN PRN PRN Reason: Nasal Congestion Tacrolimus (Prograf) 6 mg PO BID [facility] Last Admin: 02/02/17 10:57 Dose: 6 mg Zolpidem Tartrate (Ambien) 5 mg PO HSPRN PRN PRN Reason: Insomnia
--- NOTE | 2017-02-02 12:54 | ECHO ---
TRANSESOPHAGEAL ECHOCARDIOGRAM: DATE OF SERVICE: 02/02/17 PREPROCEDURE DIAGNOSIS: Possible endocarditis. SUMMARY> A transesophageal echo was planned for evaluation of possible endocarditis. The anesthesia department provided sedation for the patient. Please see their notes for details. Afte r adequate sedation was achieved, the transesophageal probe was inserted into the patient's mouth and into the esophagus, and multiplanar planar views obtained. FINDINGS: Left ventricle normal sized with normal LV systolic function. Ejection fraction 60-65%. Left atrium mildly dilated. Left atrial appendage large, bilobed, with normal velocities and no evide nce of mass or thrombus. Right atrium normal size. Right ventricle normal size. Normal systolic function. Aortic valve has three cusps. There is a small, flailing mass on the noncoronary cusp consistent with aortic valve endocarditis. Mild to moderate aortic insufficiency. Mitral valve structurally normal. Moderate MR. No stenosis. Leaflets mildly thickened. No evidence of vegetations. Tricuspid valve structurally normal. Mild to moderate TR. No vegetations. Pulmonary valve structurally normal. No vegetations. Thoracic aorta has a Grade III/V atherosclerotic disease. CONCLUSIONS: 1. Normal systolic function, EF of 60-65%. 2. Left atrial enlargement. 3. Moderate MR. 4. Mild to moderate TR. 5. Small flail mass on the noncoronary cusp of the aortic valve consistent with aortic valve endocar ditis. Clinical correlation is recommended.
[2017-02-02] MEDS: INSULIN DEGLUDEC 5 UNIT SC SCH ×2 (13:43)
[2017-02-02] MEDS: cefTRIAXone\\ROCEPHIN 1 GM, Syringe 0.4 ML in Sterile Water 9.6 ML SLOW IVP SCH (13:49)
--- NOTE | 2017-02-02 14:20 | CON ---
DATE OF CONSULTATION: 02/02/2017 REASON FOR CONSULTATION: Abnormal echocardiogram findings. HISTORY OF PRESENT ILLNESS: A 71-year-old with a history of coronary artery disease with recent bypa ss graft surgery and end-stage renal disease with recent kidney transplant, previously on both hemo a nd peritoneal dialysis, who has experienced worsening dyspnea for the past 2-3 weeks and lower extrem ity edema and abdominal distention. Had some orthopnea, no chest pain, had some chills, but no docum ented fever, no sputum production. No headaches, visual symptoms, sore throat, odynophagia, dysphagi a. No toothache, no back pain, no abdominal pain, voiding without difficulty. No change in joint sy mptoms. PAST MEDICAL HISTORY: Type 2 diabetes; end-stage renal disease, previously on hemo and peritoneal di alysis with still a functioning AV fistula, recent kidney transplant; hypertension, dyslipidemia; cor onary artery bypass graft surgery; gout; hyperparathyroidism. PAST SURGICAL HISTORY: CABG x4, AV fistula placement, peritoneal dialysis catheter placement and rem oval, and kidney transplantation. SOCIAL HISTORY: , lives in [place], former smoker up until 2016. FAMILY HISTORY: Coronary artery disease. ALLERGIES: NORVASC, DOXAZOSIN, HYDRALAZINE. PHYSICAL EXAMINATION: VITAL SIGNS: T-max 98.9, blood pressure 200/60, pulse 60, respirations 15, O2 sat 96%. GENERAL: Appears chronically ill, but in no acute distress. SKIN: Bruising in extensor aspect of the upper and lower extremities. The functioning left upper ex tremity AV fistula, no Aj catheter, peripheral IV access, few shallow areas of ulceration in lower extremities. LYMPH: No lymphadenopathy. HEENT: Ocular movements are conjugate. Pupils are 2 mm and reactive. Nasal passages patent. Oral cavity moist. Still quite a few teeth in place with quite a bit of decay and gum disease. NECK: Supple, no jugular venous distention or carotid bruits, no thyromegaly. LUNGS: With symmetric air entry. Diminished breath sounds. BACK: No back tenderness. HEART: Diminished heart sounds, S1, S2 with a soft aortic murmur. Regular rate. ABDOMEN: Slightly distended, but no ascites. Kidney transplant is not tender. No organomegaly, no bladder distention. : No genital abnormalities. EXTREMITIES: Pulses are diminished in dorsalis pedis, but palpable. Capillary refill less than 4 se conds. Trace edema in lower extremities. Able to move extremities equally. NEUROLOGIC: Cognitive function appears to be intact. LABORATORY DATA: Sodium 137, creatinine is at 1.5, which is better than admission values. Lactic ac id 1.5. Bilirubin, transaminases, and alkaline phosphatase normal. CRP 1.24 that is from 1 year ago . BNP 1400. Albumin 3.0. White cell count 11.5, hemoglobin 9.6, platelets 165. Microbiology: Two sets of blood cultures are negative at 48 hours. There is a Staphylococcus aureus, MSSA from the fo ot lesions, but that is 3 years ago. Chest x-ray with CHF findings and abdomen and pelvis CT with bi lateral pleural effusions, patchy infiltrative changes, moderate ascites. The transesophageal echocardiogram showed a flaring mass lesion attached to the aortic valve. ASSESSMENT: 1. Renal transplant and coronary artery disease with recent bypass graft surgery. 2. Evidence of pulmonary edema with abnormalities noted on VALERY. DISCUSSION: Differential diagnosis includes infective endocarditis versus [place] endocarditis or g [place] non-infective endocarditis. Await on culture results. Submit Bartonella, Coxiella, Brucella se rologies and treat with vancomycin and Rocephin until we have final results of cultures. May need pl acement of a PICC line and protracted treatment.
[2017-02-02] MEDS: Vancomycin HCl 1.25 GM, Admixture Fee 1 EACH in Sodium Chloride 0.9% 250 ML 250 ML IVPB SCH (15:21)
[2017-02-02] MEDS: HumaLOG 300 UNITS/3 ML VIAL SC PRN ×2 (17:19→21:14)
[2017-02-02] MEDS: hydrALAZINE 25 MG TAB PO SCH ×2 (17:21→21:10)
[2017-02-02] MEDS: Prenatal Vitamin 1 TAB PO SCH (21:13)
[2017-02-02] MEDS: Pravastatin Sodium 20 MG TAB PO SCH (21:13)
[2017-02-03] MEDS: Furosemide 40 MG/4 ML VIAL SLOW IVP SCH ×2 (06:30→14:06)
[2017-02-03] MEDS: (Febuxostat [Uloric] 80 MG) PO SCH ×2 (09:49)
[2017-02-03] MEDS: Enoxaparin Sodium 30 MG/0.3 ML SYRINGE SC SCH (09:50)
[2017-02-03] MEDS: predniSONE 5 MG TAB PO SCH (09:51)
[2017-02-03] MEDS: Saccharomyces boulardii 250 MG CAP PO SCH (09:51)
[2017-02-03] MEDS: hydrALAZINE 25 MG TAB PO SCH ×3 (09:51→21:38)
[2017-02-03] MEDS: Tacrolimus 1 MG CAP PO SCH ×2 (09:51→21:39)
[2017-02-03] MEDS: Carvedilol 25 MG TAB PO SCH ×2 (09:51→21:37)
[2017-02-03] MEDS: Aspirin 81 mg Enteric Coated Tablet PO SCH (09:55)
[2017-02-03] MEDS: cloNIDine 0.2 MG TAB PO SCH ×2 (09:55→21:40)
[2017-02-03] MEDS: NIFEdipine XL 90 MG TAB PO SCH ×2 (09:55→21:39)
[2017-02-03] MEDS: Hydrochlorothiazide 25 MG TAB PO SCH (09:56)
[2017-02-03] MEDS: Calcitriol 0.25 MCG CAP PO SCH (09:56)
[2017-02-03] MEDS: INSULIN DEGLUDEC 5 UNIT SC SCH ×2 (10:11)
[2017-02-03] MEDS: Mycophenolate 250 MG CAP PO SCH ×2 (10:12→21:39)
[2017-02-03 10:20] LABS: Anion Gap 12 mmol/L (10-20); BUN (Urea Nitrogen) 21 mg/dL (8.4-25.7); Calc. Creatinine Clearance 53 mL/min (70-130); Calcium 8.6 mg/dL (7.8-10.44); Carbon Dioxide 27 mmol/L (23-31); Chloride 101 mmol/L (98-107); Estimated GFR-MDRD 50
[2017-02-03] MEDS: Sodium Bicarbonate Tab 325 MG TAB PO SCH ×2 (10:20→21:38)
--- NOTE | 2017-02-03 11:29 | PRG ---
DATE OF SERVICE: 02/03/2017 SUBJECTIVE: Mr. Caldera is feeling better. He say his breathing has improved. No complaints. OBJECTIVE: VITAL SIGNS: Blood pressure was high 157/95, pulse 62 regular. LUNGS: Clear. CARDIAC: Normal S1, normal S2. ABDOMEN: Soft and nontender. EXTREMITIES: No edema now. He did have edema previously. ASSESSMENT: 1. Congestive heart failure, clinically improved. 2. Previous renal transplantation. 3. Probable endocarditis. 4. Coronary artery disease, stable. PLAN: 1. Continue diuretics intravenously today, probably change to oral tomorrow. 2. Continue carvedilol. 3. Stop hydrochlorothiazide in view of the furosemide being given.
--- NOTE | 2017-02-03 11:42 | PRG ---
DATE OF SERVICE: 02/03/2017 SERVICE: Renal Medicine. SUBJECTIVE: Mr. Caldera is a 71-year-old white male, status post renal transplant and admitted for fev er. He has been seen by Infectious Disease transformation consultant. Consideration for infective endocarditis rem ains with this patient. Long-term IV antibiotic has been planned. We are following this patient for his renal transplant management. His most recent creatinine is noted at 1.41, which is near baselin e according to the patient. No other complaints today. Denies any chest pain or shortness of breath. His breathing is much bett er. OBJECTIVE: VITAL SIGNS: Blood pressure is 157/95, heart rate 62, respiratory rate 18 and temperature 97.9. GENERAL: Awake, alert, comfortable, not in distress. SKIN: Adequate turgor. HEENT: He has pinkish conjunctivae, anicteric sclerae. NECK: No neck mass, no carotid bruits, no JVD. CHEST: No deformities. LUNGS: Clear breath sounds. No wheezing. HEART: Normal sinus rhythm. Grade 2/6 systolic murmur. No gallops, no rubs. ABDOMEN: Globular, soft and nontender. No masses. EXTREMITIES: No edema. MEDICATIONS: Medications of 02/03/2017 was reviewed. LABORATORY DATA: Laboratories of 02/01/2017, BUN 22 and creatinine 1.35. On 02/03/2017, BUN 21, cre atinine 1.41 and potassium 4.2. Tacrolimus level is still pending. ASSESSMENT AND PLAN: 1. Status post cadaveric renal transplant - continue current immunosuppressive regimen. No changes to be made with his current tacrolimus and CellCept. Please note we are awaiting tacrolimus level. 2. Infective endocarditis - on IV antibiotics. ID following. This patient may need long-term antib iotics for at least 6-8 weeks. 3. Shortness of breath. Clinically, much improved. Overall, I agree with the current management.
[2017-02-03] MEDS: Vancomycin HCl 1.25 GM, Admixture Fee 1 EACH in Sodium Chloride 0.9% 250 ML 250 ML IVPB SCH (14:03)
[2017-02-03] MEDS: cefTRIAXone\\ROCEPHIN 1 GM, Syringe 0.4 ML in Sterile Water 9.6 ML SLOW IVP SCH (14:04)
[2017-02-03] MEDS: HumaLOG 300 UNITS/3 ML VIAL SC PRN ×2 (14:06→18:12)
[2017-02-03] MEDS: Prenatal Vitamin 1 TAB PO SCH (21:39)
[2017-02-03] MEDS: Pravastatin Sodium 20 MG TAB PO SCH (21:39)
[2017-02-04] MEDS: Furosemide 40 MG/4 ML VIAL SLOW IVP SCH ×2 (06:11→14:24)
[2017-02-04 06:22] LABS: #Basophils 0.1 thou/uL (0.0-0.2); #Eosinphils 0.1 thou/uL (0.0-0.7); #Lymphocytes 1.3 thou/uL (1.20-3.40); #Monocytes 0.7 thou/uL (0.11-0.59); #Neutrophils 4.6 thou/uL (1.40-6.50); %Basophils 0.8 % (0.0-1.0); %Eosinophils 1.5 % (0.0-10.0); %Monocytes 9.9 % (0.0-10.0); Hematocrit 26.9 % (42.0-52.0); Mean Platelet Volume 8.6 fL (7.4-10.4); Red Blood Cell (RBC) Count 2.84 mill/uL (4.70-6.10); White Blood Cell (WBC) Count 6.7 thou/uL (4.8-10.8)
[2017-02-04 06:32] LABS: Anion Gap 9 mmol/L (10-20); BUN (Urea Nitrogen) 21 mg/dL (8.4-25.7); Calc. Creatinine Clearance 48 mL/min (70-130); Calcium 8.7 mg/dL (7.8-10.44); Carbon Dioxide 28 mmol/L (23-31); Chloride 101 mmol/L (98-107); Estimated GFR-MDRD 50
[2017-02-04] MEDS: Carvedilol 25 MG TAB PO SCH ×2 (09:24→20:19)
[2017-02-04] MEDS: hydrALAZINE 25 MG TAB PO SCH ×3 (09:24→20:17)
[2017-02-04] MEDS: Mycophenolate 250 MG CAP PO SCH ×2 (09:34→20:19)
[2017-02-04] MEDS: Tacrolimus 1 MG CAP PO SCH ×2 (09:34→20:20)
[2017-02-04] MEDS: Sodium Bicarbonate Tab 325 MG TAB PO SCH ×2 (09:35→20:14)
[2017-02-04] MEDS: cloNIDine 0.2 MG TAB PO SCH ×2 (09:38→20:21)
[2017-02-04] MEDS: Saccharomyces boulardii 250 MG CAP PO SCH (09:38)
[2017-02-04] MEDS: Aspirin 81 mg Enteric Coated Tablet PO SCH (09:39)
[2017-02-04] MEDS: NIFEdipine XL 90 MG TAB PO SCH ×2 (09:39→20:15)
[2017-02-04] MEDS: predniSONE 5 MG TAB PO SCH (09:39)
[2017-02-04] MEDS: Calcitriol 0.25 MCG CAP PO SCH (09:39)
[2017-02-04] MEDS: Enoxaparin Sodium 30 MG/0.3 ML SYRINGE SC SCH (09:40)
[2017-02-04] MEDS: INSULIN DEGLUDEC 5 UNIT SC SCH ×2 (09:40)
[2017-02-04] MEDS: (Febuxostat [Uloric] 80 MG) PO SCH ×2 (09:40)
[2017-02-04] MEDS: HumaLOG 300 UNITS/3 ML VIAL SC PRN ×4 (09:41→20:28)
--- NOTE | 2017-02-04 09:43 | PDOC.PN ---
- Subjective Encounter Start Date: 02/04/17 Encounter Start Time: 08:00 Subjective: no sob, feels better, is amb in room - Objective Resuscitation Status: Resuscitation Status FULL:Full Resuscitation MAR Reviewed: Yes Vital Signs & Weight: Vital Signs (12 hours) Temp Pulse Resp BP Pulse Ox 02/04/17 04:00 98.6 F 60 18 155/67 H 95 02/04/17 00:00 98.3 F 62 22 H 126/87 100 02/03/17 23:49 65 16 97 Weight Weight 152 lb 11.2 oz I&O: 02/03/17 02/04/17 02/05/17 06:59 06:59 06:59 Intake Total 610 1540 Output Total 3175 1750 Balance -2565 -210 Result Diagrams: 02/04/17 06:01 02/04/17 06:01 Additional Labs: Accuchecks 02/04/17 02/03/17 02/03/17 06:29 20:05 17:01 POC Glucose 191 H 160 H 216 H 02/03/17 12:13 POC Glucose 251 H Phys Exam - Physical Examination HEENT: PERRLA, moist MMs Neck: no JVD, supple Respiratory: no wheezing, no rales Cardiovascular: RRR, no significant murmur Gastrointestinal: soft, non-tender, positive bowel sounds Musculoskeletal: no edema, pulses present Neurological: non-focal, moves all 4 limbs Psychiatric: A&O x 3 Dx/Plan (1) Diastolic CHF, acute Code(s): I50.31 - ACUTE DIASTOLIC (CONGESTIVE) HEART FAILURE Status: Acute (2) Endocarditis Code(s): I38 - ENDOCARDITIS, VALVE UNSPECIFIED Status: Acute Qualifiers: Endocarditis type: infective Infective endocarditis organism: bacterial Chronicity: acute Qualified Code(s): I33.0 - Acute and subacute infective endocarditis Comment: over aortic valve area (3) DM type 2 (diabetes mellitus, type 2) Status: Chronic Qualifiers: Diabetes mellitus complication status: with kidney complications Diabetes mellitus complication detail: with chronic kidney disease Diabetes mellitus buttermilk drier operator insulin use: without buttermilk drier operator use Chronic kidney disease stage: stage 2 (mild) Qualified Code(s): E11.22 - Type 2 diabetes mellitus with diabetic chronic kidney disease; N18.2 - Chronic kidney disease, stage 2 (mild) ; N18.2 - Chronic kidney disease, stage 2 (mild) (4) H/O kidney transplant Status: Chronic Comment: is on prograf, cellcept and prednisone (5) Anemia of renal disease Code(s): D63.1 - ANEMIA IN CHRONIC KIDNEY DISEASE Status: Chronic (6) CAD (coronary artery disease) Code(s): I25.10 - ATHSCL HEART DISEASE OF [place] CORONARY ARTERY W/O ANG PCTRS Status: Chronic Qualifiers: Coronary Disease-Associated Artery/Lesion type: bypass graft [place] vs. transplanted heart: [place] heart Associated angina: without angina Qualified Code(s): I25.810 - Atherosclerosis of coronary artery bypass graft(s) without angina pectoris (7) Dyslipidemia Code(s): E78.5 - HYPERLIPIDEMIA, UNSPECIFIED Status: Chronic - Plan on oral lasix -: ceftriaxone and vanc for susp bact endocarditis -: blood cultures so far are -ve -: picc line for antibiotics -: cm for help with setting up of outpt antibiotics per advice * . Review of Systems - Medications/Allergies Allergies/Adverse Reactions: Allergies Allergy/AdvReac Type Severity Reaction Status Date / Time amlodipine AdvReac Verified 02/03/17 23:26 doxazosin AdvReac Stomach Verified 02/03/17 23:26 Ache hydralazine AdvReac Verified 02/03/17 23:26 Medications: Current Medications Acetaminophen (Tylenol) 650 mg PO Q4H PRN PRN Reason: Headache/Fever or Pain Acetaminophen/Codeine Phosphate (Tylenol #3) 1 tab PO Q6HR PRN PRN Reason: Pain Hydrocodone Bitart/Acetaminophen ([place] 5/325) 1 tab PO Q4H PRN PRN Reason: Moderate Pain (4-6) Al Hydroxide/Mg Hydroxide (Maalox) 30 ml PO Q6H PRN PRN Reason: Heartburn or Indigestion Albuterol/Ipratropium (Duoneb) 3 ml NEB Q6H PRN PRN Reason: Dyspnea/Wheezing/SOB Artificial Tears (Tears Naturale) 0 drop EA EYE PRN PRN PRN Reason: Dry Eyes Aspirin (Ecotrin) 81 mg PO DAILY [facility] Last Admin: 02/03/17 09:55 Dose: 81 mg Calcitriol (Rocaltrol) 0.5 mcg PO DAILY [facility] Last Admin: 02/03/17 09:56 Dose: 0.5 mcg Calcium Carbonate (Tums) 1,000 mg PO PRN PRN PRN Reason: Heartburn or Indigestion Carvedilol (Coreg) 25 mg PO BID [facility] Last Admin: 02/03/17 21:37 Dose: 25 mg Clonidine (Catapres) 0.1 mg PO Q4H PRN PRN Reason: Systolic BP > 180 Clonidine (Catapres) 0.2 mg PO BID [facility] Last Admin: 02/03/17 21:40 Dose: 0.2 mg Dextrose/Water (Dextrose 50%) 25 gm SLOW IVP PRN PRN PRN Reason: Hypoglycemia Enoxaparin Sodium (Lovenox) 30 mg SC 0900 [facility] Last Admin: 02/03/17 09:50 Dose: 30 mg Furosemide (Lasix) 40 mg SLOW IVP 0600,1400 [facility] Last Admin: 02/04/17 06:11 Dose: 40 mg Glucagon (Glucagon) 1 mg IM PRN PRN PRN Reason: Hypoglycemia Guaifenesin (Robitussin Sf) 200 mg PO Q4H PRN PRN Reason: Cough Hydralazine HCl (Apresoline) 50 mg PO TID [facility] Last Admin: 02/03/17 21:38 Dose: 50 mg Dextrose/Water (D5w) 1,000 mls @ 0 mls/hr IV .Q0M PRN; As Directed PRN Reason: Hypoglycemia Ceftriaxone Sodium 1 gm/ (Syringe 0.4 ml/ Sterile Water) 10 mls @ 120 mls/hr SLOW IVP 1300 [facility] Last Admin: 02/03/17 14:04 Dose: 10 mls Vancomycin HCl 1.25 gm/Miscellaneous Medication 1 each/ Sodium Chloride 250 mls @ 166.667 mls/hr IVPB 1400 [facility] Last Admin: 02/03/17 14:03 Dose: 250 mls Insulin Human Lispro (Humalog) 0 units SC .MODERATE SLIDING SC PRN PRN Reason: Moderate Correctional Scale Last Admin: 02/03/17 18:12 Dose: 4 unit Insulin Human Lispro (Humalog) 0 units SC .BEDTIME SLIDING SC PRN PRN Reason: Bedtime Correctional Scale Last Admin: 02/02/17 21:14 Dose: 4 unit Loperamide HCl (Imodium) 2 mg PO PRN PRN PRN Reason: Diarrhea/Loose Stools Loratadine (Claritin) 10 mg PO DAILYPRN PRN PRN Reason: Sinus Symptoms Magnesium Hydroxide (Milk Of Magnesium) 30 ml PO DAILYPRN PRN PRN Reason: Constipation Mineral Oil/White Petrolatum (Eucerin Cream) 0 gm TOP BIDPRN PRN PRN Reason: Dry Skin Miscellaneous Medication (Pharmacy To Dose) 0 each IVPB ASDIR [facility] Mycophenolate Mofetil (Cellcept) 500 mg PO BID [facility] Last Admin: 02/03/17 21:39 Dose: 500 mg Nifedipine (Procardia Xl) 90 mg PO BID [facility] Last Admin: 02/03/17 21:39 Dose: 90 mg Nitroglycerin (Nitrostat) 0.4 mg SL Q5MIN PRN PRN Reason: Chest Pain Ondansetron HCl (Zofran Odt) 4 mg PO Q6H PRN PRN Reason: Nausea/Vomiting Ondansetron HCl (Zofran) 4 mg IVP Q6H PRN PRN Reason: Nausea/Vomiting Pantoprazole Sodium (Protonix) 40 mg PO BID [facility] Last Admin: 02/03/17 21:40 Dose: 40 mg (Febuxostat [Uloric] (80 Mg)) 0 each PO QAM [facility] Last Admin: 02/03/17 09:49 Dose: 1 each (Insulin Degludec [ Tresiba Flextouch U- 100] 5 Unit) 0 each SC DAILY [facility] Last Admin: 02/03/17 10:11 Dose: 1 each Phenol (Chloraseptic [place] 180 Ml Bot) 0 ml PO PRN PRN PRN Reason: Sore Throat Pravastatin Sodium (Pravachol) 20 mg PO QPM [facility] Last Admin: 02/03/17 21:39 Dose: 20 mg Prednisone (Prednisone) 5 mg PO DAILY [facility] Last Admin: 02/03/17 09:51 Dose: 5 mg Multivit/Folic Acid/Iron ( Vitamin) 1 tab PO QPM [facility] Last Admin: 02/03/17 21:39 Dose: 1 tab Saccharomyces Boulardii (Florastor) 250 mg PO DAILY [facility] Last Admin: 02/03/17 09:51 Dose: 250 mg Senna (Senokot) 2 tab PO HSPRN PRN PRN Reason: Constipation Sodium Bicarbonate (Bicarbonate, Sodium) 1,300 mg PO BID [facility] Last Admin: 02/03/17 21:38 Dose: 1,300 mg Sodium Chloride ([place] Nasal [place] 0.65%) 0 ml EA NARE QIDPRN PRN PRN Reason: Nasal Congestion Sodium Chloride (Flush - Normal Saline) 10 ml IVF Q12HR [facility] Last Admin: 02/03/17 21:36 Dose: 10 ml Sodium Chloride (Flush - Normal Saline) 10 ml IVF PRN PRN PRN Reason: Saline Flush Last Admin: 02/04/17 06:11 Dose: 10 ml Tacrolimus (Prograf) 6 mg PO BID [facility] Last Admin: 02/03/17 21:39 Dose: 6 mg Zolpidem Tartrate (Ambien) 5 mg PO HSPRN PRN PRN Reason: Insomnia
--- NOTE | 2017-02-04 09:50 | PRG ---
DATE OF SERVICE: 02/04/2017 SUBJECTIVE: Mr. Caldera is a 71-year-old white male who is status post cadaveric renal transplant and being followed by the Renal Service for transplant management. He was admitted for congestive heart failure. His valve has been evaluated and the feeling he may have underlying infective endocarditis. The plan is for 6-8 weeks of IV antibiotics. The patient's voices has no new complaints. The patient denies any chest pain or shortness of breath . Please note the patient is scheduled for a PICC line placement tomorrow. OBJECTIVE: VITAL SIGNS: Blood pressure 155/67, heart rate 60, respiratory rate 18, temperature 98.6, pulse ox 9 5%. GENERAL: Awake, alert, comfortable, not in distress. SKIN: Adequate turgor. HEENT: Pinkish conjunctivae, anicteric sclerae. NECK: No neck mass, no carotid bruits, no JVD. CHEST: No deformities. LUNGS: Clear breath sounds. No wheezing, no crackles. HEART: Normal sinus rhythm. Grade 2/6 systolic murmur, no gallops, no rubs. ABDOMEN: Globular, soft, nontender. EXTREMITIES: No edema. Positive for left upper extremity AV fistula. MEDICATIONS: Medications of 02/04/2017 was reviewed. LABORATORY DATA: On 02/04/2017, white count 6.7, hemoglobin 8.4, sodium 134, potassium 4.2, chloride 101, carbon dioxide 28, BUN 21, creatinine 1.41, glucose 188 and calcium 8.7. Tacrolimus level is p ending. ASSESSMENT AND PLAN: 1. Status post cadaveric renal transplant, stable. Continue current immunosuppressive regimen. No changes to be made. We will await for the results of the tacrolimus level. We will then get in touc h with this photography coordinator. 2. 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 ID following for possible PICC line tomorr ow. 3. Congestive heart failure, clinically improved. Patient is currently on diuretic regimen, which jaxon vicente seems to be tolerating.
--- NOTE | 2017-02-04 11:41 | PRG ---
DATE OF SERVICE: 02/04/2017 SUBJECTIVE: Mr. Caldera is feeling better today. He is up and around. No complaints. PHYSICAL EXAMINATION: VITAL SIGNS: Blood pressure 151/78, pulse 64, it is regular. LUNGS: Clear. CARDIAC: Normal S1, S2 with the systolic murmur the same as before. ASSESSMENT: 1. Endocarditis, being treated. 2. Renal insufficiency, previous transplantation. No changes at this time.
[2017-02-04 13:27] LABS: Vancomycin, Trough 10.8 ug/mL
[2017-02-04] MEDS: Vancomycin HCl 1.75 GM in Sodium Chloride 0.9% 500 ML IVPB SCH (14:23)
[2017-02-04] MEDS: cefTRIAXone\\ROCEPHIN 1 GM, Syringe 0.4 ML in Sterile Water 9.6 ML SLOW IVP SCH (14:24)
[2017-02-04] MEDS: Prenatal Vitamin 1 TAB PO SCH (20:15)
[2017-02-04] MEDS: Pravastatin Sodium 20 MG TAB PO SCH (20:16)
[2017-02-05 05:17] LABS: Anion Gap 11 mmol/L (10-20); BUN (Urea Nitrogen) 21 mg/dL (8.4-25.7); Calc. Creatinine Clearance 49 mL/min (70-130); Calcium 8.9 mg/dL (7.8-10.44); Carbon Dioxide 28 mmol/L (23-31); Chloride 102 mmol/L (98-107); Estimated GFR-MDRD 51
[2017-02-05] MEDS: Furosemide 40 MG/4 ML VIAL SLOW IVP SCH (06:02)
[2017-02-05] MEDS: Calcitriol 0.25 MCG CAP PO SCH (08:55)
[2017-02-05] MEDS: Enoxaparin Sodium 30 MG/0.3 ML SYRINGE SC SCH (08:55)
[2017-02-05] MEDS: Carvedilol 25 MG TAB PO SCH ×2 (08:55→21:40)
[2017-02-05] MEDS: Aspirin 81 mg Enteric Coated Tablet PO SCH (08:55)
[2017-02-05] MEDS: hydrALAZINE 25 MG TAB PO SCH ×3 (08:55→21:56)
[2017-02-05] MEDS: cloNIDine 0.2 MG TAB PO SCH ×2 (08:55→21:45)
[2017-02-05] MEDS: Mycophenolate 250 MG CAP PO SCH ×2 (08:55→21:57)
[2017-02-05] MEDS: INSULIN DEGLUDEC 5 UNIT SC SCH ×2 (08:56)
[2017-02-05] MEDS: (Febuxostat [Uloric] 80 MG) PO SCH ×2 (08:56)
[2017-02-05] MEDS: predniSONE 5 MG TAB PO SCH (08:56)
[2017-02-05] MEDS: NIFEdipine XL 90 MG TAB PO SCH ×2 (08:56→21:56)
[2017-02-05] MEDS: Tacrolimus 1 MG CAP PO SCH ×2 (08:57→21:58)
[2017-02-05] MEDS: Sodium Bicarbonate Tab 325 MG TAB PO SCH ×2 (08:57→22:01)
[2017-02-05] MEDS: Saccharomyces boulardii 250 MG CAP PO SCH (08:57)
--- NOTE | 2017-02-05 09:05 | PRG ---
DATE OF SERVICE: 02/05/2017 SERVICE: Renal Medicine. SUBJECTIVE: The patient has no new complaints today. He is being followed up by the Renal Service f or his posttransplant management. Doing well overall. He was also admitted for fever and shortness of breath. He has a presumptive diagnosis of infective endocarditis currently. Currently, patient i s on IV antibiotics. He is scheduled for placement of PICC line. Furthermore, spouting installer has eval uated this patient and has been placed on furosemide at 40 mg IV q.12 hours. The patient's breathing is stable. He denies any chest pain, fever or chills. PHYSICAL EXAMINATION: VITAL SIGNS: Blood pressure 142/65, heart rate 56, respiratory rate 18, temperature 98.5, pulse ox 9 2%. GENERAL: Awake, alert, sitting comfortable. SKIN: Adequate turgor. HEENT: Slightly pale conjunctivae, anicteric sclerae. NECK: No neck mass, no carotid bruits, no JVD. CHEST: No deformities. LUNGS: Decreased breath sounds. HEART: Normal sinus rhythm. Grade 2/6 systolic murmur, no gallops or rubs. ABDOMEN: Globular, soft, nontender, no masses. EXTREMITIES: No edema, no deformities, no renal allograft tenderness. MEDICATIONS: Of 02/05/2017 was reviewed. LABORATORY DATA: Of 02/04/2017, white count 6.7, hemoglobin 8.4. Of 02/05/2017, sodium 137, potass[place] um 4.3, chloride 102, carbon dioxide 28, BUN 21, creatinine 1.39, glucose 147, calcium is 8.9. Tacro limus level is pending. ASSESSMENT AND PLAN: 1. Status post renal transplant - continuing current immunosuppressive regimen. Patient's tacrolimu s level is pending. Please note, he had a tacrolimus level on 01/18/2017, which was 6.3. Back on , it was 5.8. We will continue current maintenance of tacrolimus and CellCept with this jacey ent. 2. 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 ID following for PICC line placement. 3. Shortness of breath/congestive heart failure - stable. Patient is currently on IV Lasix. Cardio logy is following. Please note that the creatinine is remaining stable with this patient. No change s will be made with his current immunosuppressive regimen.
--- NOTE | 2017-02-05 11:03 | PDOC.PN ---
- Subjective Encounter Start Date: 02/05/17 Encounter Start Time: 09:15 Subjective: no sob, is amb well in hallway -: awaiting picc line today - Objective Resuscitation Status: Resuscitation Status FULL:Full Resuscitation MAR Reviewed: Yes Vital Signs & Weight: Vital Signs (12 hours) Temp Pulse Resp BP Pulse Ox 02/05/17 08:00 97.6 F 54 L 18 97 02/05/17 07:55 97.6 F 54 L 18 144/67 H 97 02/05/17 04:00 98.5 F 56 L 18 142/65 H 92 L Weight Weight 147 lb 9.6 oz I&O: 02/04/17 02/05/17 02/06/17 06:59 06:59 06:59 Intake Total 1540 1954 Output Total 1750 9660 Balance -210 -516 Result Diagrams: 02/04/17 06:01 02/05/17 04:55 Additional Labs: Accuchecks 02/05/17 02/04/17 02/04/17 06:03 19:46 17:38 POC Glucose 155 H 249 H 328 H 02/04/17 11:34 POC Glucose 222 H Phys Exam - Physical Examination HEENT: PERRLA, moist MMs Neck: no JVD, supple Respiratory: no wheezing, no rales Cardiovascular: RRR, no significant murmur Gastrointestinal: soft, non-tender, positive bowel sounds Musculoskeletal: no edema, pulses present Neurological: non-focal, moves all 4 limbs Psychiatric: A&O x 3 Dx/Plan (1) Diastolic CHF, acute Code(s): I50.31 - ACUTE DIASTOLIC (CONGESTIVE) HEART FAILURE Status: Acute (2) Endocarditis Code(s): I38 - ENDOCARDITIS, VALVE UNSPECIFIED Status: Acute Qualifiers: Endocarditis type: infective Infective endocarditis organism: bacterial Chronicity: acute Qualified Code(s): I33.0 - Acute and subacute infective endocarditis Comment: over aortic valve area (3) DM type 2 (diabetes mellitus, type 2) Status: Chronic Qualifiers: Diabetes mellitus complication status: with kidney complications Diabetes mellitus complication detail: with chronic kidney disease Diabetes mellitus senior living insulin use: without supervisor long goods use Chronic kidney disease stage: stage 2 (mild) Qualified Code(s): E11.22 - Type 2 diabetes mellitus with diabetic chronic kidney disease; N18.2 - Chronic kidney disease, stage 2 (mild) ; N18.2 - Chronic kidney disease, stage 2 (mild) (4) H/O kidney transplant Status: Chronic Comment: is on prograf, cellcept and prednisone (5) Anemia of renal disease Code(s): D63.1 - ANEMIA IN CHRONIC KIDNEY DISEASE Status: Chronic (6) CAD (coronary artery disease) Code(s): I25.10 - ATHSCL HEART DISEASE OF [place] CORONARY ARTERY W/O ANG PCTRS Status: Chronic Qualifiers: Coronary Disease-Associated Artery/Lesion type: bypass graft [place] vs. transplanted heart: [place] heart Associated angina: without angina Qualified Code(s): I25.810 - Atherosclerosis of coronary artery bypass graft(s) without angina pectoris (7) Dyslipidemia Code(s): E78.5 - HYPERLIPIDEMIA, UNSPECIFIED Status: Chronic - Plan is on vanc and ceftriaxone -: blood cs are -ve so far -: will get his picc line today -: oral lasix -: for help with outpt antibiotic set up per advice * . Review of Systems - Medications/Allergies Allergies/Adverse Reactions: Allergies Allergy/AdvReac Type Severity Reaction Status Date / Time amlodipine AdvReac Verified 02/03/17 23:26 doxazosin AdvReac Stomach Verified 02/03/17 23:26 Ache hydralazine AdvReac Verified 02/03/17 23:26 Medications: Current Medications Acetaminophen (Tylenol) 650 mg PO Q4H PRN PRN Reason: Headache/Fever or Pain Acetaminophen/Codeine Phosphate (Tylenol #3) 1 tab PO Q6HR PRN PRN Reason: Pain Hydrocodone Bitart/Acetaminophen ([place] 5/325) 1 tab PO Q4H PRN PRN Reason: Moderate Pain (4-6) Al Hydroxide/Mg Hydroxide (Maalox) 30 ml PO Q6H PRN PRN Reason: Heartburn or Indigestion Albuterol/Ipratropium (Duoneb) 3 ml NEB Q6H PRN PRN Reason: Dyspnea/Wheezing/SOB Artificial Tears (Tears Naturale) 0 drop EA EYE PRN PRN PRN Reason: Dry Eyes Aspirin (Ecotrin) 81 mg PO DAILY [facility] Last Admin: 02/05/17 08:55 Dose: 81 mg Calcitriol (Rocaltrol) 0.5 mcg PO DAILY [facility] Last Admin: 02/05/17 08:55 Dose: 0.5 mcg Calcium Carbonate (Tums) 1,000 mg PO PRN PRN PRN Reason: Heartburn or Indigestion Carvedilol (Coreg) 25 mg PO BID [facility] Last Admin: 02/05/17 08:55 Dose: 25 mg Clonidine (Catapres) 0.1 mg PO Q4H PRN PRN Reason: Systolic BP > 180 Clonidine (Catapres) 0.2 mg PO BID [facility] Last Admin: 02/05/17 08:55 Dose: 0.2 mg Dextrose/Water (Dextrose 50%) 25 gm SLOW IVP PRN PRN PRN Reason: Hypoglycemia Enoxaparin Sodium (Lovenox) 30 mg SC 0900 [facility] Last Admin: 02/05/17 08:55 Dose: 30 mg Furosemide (Lasix) 40 mg PO 0900,1400 [facility] Glucagon (Glucagon) 1 mg IM PRN PRN PRN Reason: Hypoglycemia Guaifenesin (Robitussin Sf) 200 mg PO Q4H PRN PRN Reason: Cough Hydralazine HCl (Apresoline) 50 mg PO TID [facility] Last Admin: 02/05/17 08:55 Dose: 50 mg Dextrose/Water (D5w) 1,000 mls @ 0 mls/hr IV .Q0M PRN; As Directed PRN Reason: Hypoglycemia Ceftriaxone Sodium 1 gm/ (Syringe 0.4 ml/ Sterile Water) 10 mls @ 120 mls/hr SLOW IVP 1300 [facility] Last Admin: 02/04/17 14:24 Dose: 10 mls Vancomycin HCl 1.75 gm/ Sodium (Chloride) 500 mls @ 250 mls/hr IVPB 1400 [facility] Last Admin: 02/04/17 14:23 Dose: 500 mls Insulin Human Lispro (Humalog) 0 units SC .MODERATE SLIDING SC PRN PRN Reason: Moderate [place] Scale Last Admin: 02/04/17 18:27 Dose: 8 unit Insulin Human Lispro (Humalog) 0 units SC .BEDTIME SLIDING SC PRN PRN Reason: Bedtime Correctional Scale Last Admin: 02/04/17 20:28 Dose: 2 unit Loperamide HCl (Imodium) 2 mg PO PRN PRN PRN Reason: Diarrhea/Loose Stools Loratadine (Claritin) 10 mg PO DAILYPRN PRN PRN Reason: Sinus Symptoms Magnesium Hydroxide (Milk Of Magnesium) 30 ml PO DAILYPRN PRN PRN Reason: Constipation Mineral Oil/White Petrolatum (Eucerin Cream) 0 gm TOP BIDPRN PRN PRN Reason: Dry Skin Miscellaneous Medication (Pharmacy To Dose) 0 each IVPB ASDIR [facility] Mycophenolate Mofetil (Cellcept) 500 mg PO BID [facility] Last Admin: 02/05/17 08:55 Dose: 500 mg Nifedipine (Procardia Xl) 90 mg PO BID [facility] Last Admin: 02/05/17 08:56 Dose: 90 mg Nitroglycerin (Nitrostat) 0.4 mg SL Q5MIN PRN PRN Reason: Chest Pain Ondansetron HCl (Zofran Odt) 4 mg PO Q6H PRN PRN Reason: Nausea/Vomiting Ondansetron HCl (Zofran) 4 mg IVP Q6H PRN PRN Reason: Nausea/Vomiting Pantoprazole Sodium (Protonix) 40 mg PO BID [facility] Last Admin: 02/05/17 08:56 Dose: 40 mg (Febuxostat [Uloric] (80 Mg)) 0 each PO QAM [facility] Last Admin: 02/05/17 08:56 Dose: 1 each (Insulin Degludec [ Tresiba Flextouch U- 100] 5 Unit) 0 each SC DAILY [facility] Last Admin: 02/05/17 08:56 Dose: 1 each Phenol (Chloraseptic [place] 180 Ml Bot) 0 ml PO PRN PRN PRN Reason: Sore Throat Pravastatin Sodium (Pravachol) 20 mg PO QPM [facility] Last Admin: 02/04/17 20:16 Dose: 20 mg Prednisone (Prednisone) 5 mg PO DAILY [facility] Last Admin: 02/05/17 08:56 Dose: 5 mg Multivit/Folic Acid/Iron ( Vitamin) 1 tab PO QPM [facility] Last Admin: 02/04/17 20:15 Dose: 1 tab Saccharomyces Boulardii (Florastor) 250 mg PO DAILY [facility] Last Admin: 02/05/17 08:57 Dose: 250 mg Senna (Senokot) 2 tab PO HSPRN PRN PRN Reason: Constipation Sodium Bicarbonate (Bicarbonate, Sodium) 1,300 mg PO BID [facility] Last Admin: 02/05/17 08:57 Dose: 1,300 mg Sodium Chloride ([place] Nasal [place] 0.65%) 0 ml EA NARE QIDPRN PRN PRN Reason: Nasal Congestion Sodium Chloride (Flush - Normal Saline) 10 ml IVF Q12HR [facility] Last Admin: 02/05/17 08:57 Dose: 10 ml Sodium Chloride (Flush - Normal Saline) 10 ml IVF PRN PRN PRN Reason: Saline Flush Last Admin: 02/05/17 06:02 Dose: 10 ml Tacrolimus (Prograf) 6 mg PO BID [facility] Last Admin: 02/05/17 08:57 Dose: 6 mg Zolpidem Tartrate (Ambien) 5 mg PO HSPRN PRN PRN Reason: Insomnia
[2017-02-05] MEDS: HumaLOG 300 UNITS/3 ML VIAL SC PRN ×2 (11:42→17:12)
--- NOTE | 2017-02-05 12:17 | SPC ---
SONOGRAPHIC GUIDED LEFT UPPER EXTREMITY PICC PLACEMENT: HISTORY: Endocarditis. FINDINGS: After explaining the procedure and answering all questions, the left upper extremity was prepped and draped in the usual sterile fashion. Sterile technique, buffered local anesthesia, sonographic rochelle nce, and a 22 gauge needle were used to carefully access the left brachial vein. The standard techni que was then used to place the tip of a 5 [place] single lumen tip so that the tip lies at the level o f the cavoatrial junction. The catheter was flushed and secured externally. The patient tolerated t he procedure well and was returned in unchanged condition. FLUOROSCOPY TIME: Zero seconds. IMPRESSION: Technically successful left upper extremity peripherally inserted central catheter placement. The ca theter is now ready for use. POS: RHEA
[2017-02-05] MEDS: cefTRIAXone\\ROCEPHIN 1 GM, Syringe 0.4 ML in Sterile Water 9.6 ML SLOW IVP SCH (14:00)
[2017-02-05] MEDS: Vancomycin HCl 1.75 GM in Sodium Chloride 0.9% 500 ML IVPB SCH (14:02)
[2017-02-05] MEDS: Furosemide 40 MG TAB PO SCH (14:02)
[2017-02-05] MEDS: Pravastatin Sodium 20 MG TAB PO SCH (21:59)
[2017-02-05] MEDS: Prenatal Vitamin 1 TAB PO SCH (22:00)
[2017-02-06 04:58] LABS: #Basophils 0.1 thou/uL (0.0-0.2); #Eosinphils 0.2 thou/uL (0.0-0.7); #Lymphocytes 1.7 thou/uL (1.20-3.40); #Monocytes 0.7 thou/uL (0.11-0.59); #Neutrophils 5.1 thou/uL (1.40-6.50); %Basophils 0.8 % (0.0-1.0); %Eosinophils 2.1 % (0.0-10.0); %Lymphocytes 22.7 % (21.0-51.0); %Monocytes 8.5 % (0.0-10.0); Hematocrit 31.3 % (42.0-52.0); Mean Platelet Volume 8.2 fL (7.4-10.4); White Blood Cell (WBC) Count 7.7 thou/uL (4.8-10.8)
[2017-02-06 05:14] LABS: Anion Gap 10 mmol/L (10-20); BUN (Urea Nitrogen) 20 mg/dL (8.4-25.7); Calc. Creatinine Clearance 53 mL/min (70-130); Carbon Dioxide 27 mmol/L (23-31); Chloride 104 mmol/L (98-107); Estimated GFR-MDRD 57
[2017-02-06 06:52] VITALS: BMI 20.8
--- NOTE | 2017-02-06 08:52 | PDOC.PN ---
- Subjective Encounter Start Date: 02/06/17 Encounter Start Time: 07:45 Subjective: no sob, feels better -: is amb in hallway - Objective Resuscitation Status: Resuscitation Status FULL:Full Resuscitation MAR Reviewed: Yes Vital Signs & Weight: Vital Signs (12 hours) Temp Pulse Resp BP BP Pulse Ox 02/06/17 04:00 98.2 F 54 L 18 139/60 100 02/06/17 00:00 98.4 F 56 L 18 109/56 L 96 02/05/17 21:56 52 L 129/57 L 02/05/17 21:45 129/57 L Weight Weight 145 lb 6.4 oz I&O: 02/05/17 02/06/17 02/07/17 06:59 06:59 06:59 Intake Total 1954 1130 Output Total 9660 1625 Balance -516 -495 Result Diagrams: 02/06/17 04:31 02/06/17 04:31 Additional Labs: Accuchecks 02/06/17 02/05/17 02/05/17 04:31 20:58 16:55 POC Glucose 142 H 272 H 289 H 02/05/17 11:11 POC Glucose 268 H Phys Exam - Physical Examination HEENT: PERRLA, moist MMs Neck: no JVD, supple Respiratory: no wheezing, no rales Cardiovascular: RRR, no significant murmur Gastrointestinal: soft, non-tender, positive bowel sounds Musculoskeletal: pulses present has picc placed on Right UE forearm Neurological: non-focal, moves all 4 limbs Psychiatric: A&O x 3 Dx/Plan (1) Diastolic CHF, acute Code(s): I50.31 - ACUTE DIASTOLIC (CONGESTIVE) HEART FAILURE Status: Resolved (2) Endocarditis Code(s): I38 - ENDOCARDITIS, VALVE UNSPECIFIED Status: Acute Qualifiers: Endocarditis type: infective Infective endocarditis organism: bacterial Chronicity: acute Qualified Code(s): I33.0 - Acute and subacute infective endocarditis Comment: over aortic valve area (3) DM type 2 (diabetes mellitus, type 2) Status: Chronic Qualifiers: Diabetes mellitus complication status: with kidney complications Diabetes mellitus complication detail: with chronic kidney disease Diabetes mellitus care home insulin use: without care home use Chronic kidney disease stage: stage 2 (mild) Qualified Code(s): E11.22 - Type 2 diabetes mellitus with diabetic chronic kidney disease; N18.2 - Chronic kidney disease, stage 2 (mild) ; N18.2 - Chronic kidney disease, stage 2 (mild) (4) H/O kidney transplant Status: Chronic Comment: is on prograf, cellcept and prednisone (5) Anemia of renal disease Code(s): D63.1 - ANEMIA IN CHRONIC KIDNEY DISEASE Status: Chronic (6) CAD (coronary artery disease) Code(s): I25.10 - ATHSCL HEART DISEASE OF [place] CORONARY ARTERY W/O ANG PCTRS Status: Chronic Qualifiers: Coronary Disease-Associated Artery/Lesion type: bypass graft [place] vs. transplanted heart: [place] heart Associated angina: without angina Qualified Code(s): I25.810 - Atherosclerosis of coronary artery bypass graft(s) without angina pectoris (7) Dyslipidemia Code(s): E78.5 - HYPERLIPIDEMIA, UNSPECIFIED Status: Chronic - Plan vanc and rocephin till mar 15 -: may dc home if outpt antibiotics are approved by his insurance -: weekly labs per advice -: has lost 23lbs with diuresis -: to f/u with in 1 week * .
[2017-02-06] MEDS ORDERED: NIFEdipine XL 60 MG TAB PO SCH (09:00)
[2017-02-06] MEDS ORDERED: cloNIDine 0.1 MG TAB PO SCH (09:00)
[2017-02-06] MEDS: hydrALAZINE 25 MG TAB PO SCH ×2 (09:32→14:42)
[2017-02-06] MEDS: Aspirin 81 mg Enteric Coated Tablet PO SCH (09:38)
[2017-02-06] MEDS: Saccharomyces boulardii 250 MG CAP PO SCH (09:38)
[2017-02-06] MEDS: predniSONE 5 MG TAB PO SCH (09:38)
[2017-02-06] MEDS: Furosemide 40 MG TAB PO SCH ×2 (09:39→14:42)
[2017-02-06] MEDS: Calcitriol 0.25 MCG CAP PO SCH (09:39)
[2017-02-06] MEDS: (Febuxostat [Uloric] 80 MG) PO SCH ×2 (09:40)
[2017-02-06] MEDS: Mycophenolate 250 MG CAP PO SCH (09:40)
[2017-02-06] MEDS: Sodium Bicarbonate Tab 325 MG TAB PO SCH (09:40)
[2017-02-06] MEDS: Tacrolimus 1 MG CAP PO SCH (09:41)
[2017-02-06] MEDS: Enoxaparin Sodium 30 MG/0.3 ML SYRINGE SC SCH (09:46)
[2017-02-06] MEDS: INSULIN DEGLUDEC 5 UNIT SC SCH ×2 (09:47)
--- NOTE | 2017-02-06 11:17 | PRG ---
DATE OF SERVICE: 02/06/2017 SUBJECTIVE: Mr. Caldera is a 71-year-old white male status post cadaveric renal transplant. No new co mplaints today. He was admitted for shortness of breath. He was found to have infective endocarditi s and planned outpatient antibiotics have been made. I did discuss the case with the renal transplan t program in [place]. Target tacrolimus level is 5-6. No new complaints today. Feeling better. OBJECTIVE: VITAL SIGNS: Blood pressure is 139/67, heart rate 55, respiratory rate 20, temperature 98.1, pulse o x 98%. GENERAL: Awake, alert, comfortable, not in distress. SKIN: Adequate turgor. HEENT: Pinkish conjunctivae, anicteric sclerae. NECK: No neck mass, no carotid bruits, no JVD. CHEST: No deformities. LUNGS: Clear breath sounds. HEART: Normal sinus rhythm. No murmurs, no gallops, no rubs. ABDOMEN: Globular, soft, nontender, no masses. EXTREMITIES: No edema, no deformities. MEDICATIONS: Medications of 02/06/2017 was reviewed. LABORATORY DATA: Laboratories of 02/06/2017; white count 7.7, hemoglobin 10. Tacrolimus level is 6. 0. BUN 20, creatinine 1.25, potassium 3.3. ASSESSMENT AND PLAN: 1. Status post cadaveric renal transplant, stable, doing well. Creatinine is actually improved at 1 .25. Continue current immunosuppressive regimen. Please note this tacrolimus level is acceptable at 6.0. No changes will be made with the tacrolimus. 2. Infective endocarditis for planned IV antibiotics for the next 4-6 weeks. ID following. Agree with current management.
[2017-02-06] MEDS: HumaLOG 300 UNITS/3 ML VIAL SC PRN ×2 (12:10→17:32)
--- NOTE | 2017-02-06 14:14 | DIS ---
DATE OF ADMISSION: 01/31/2017 DATE OF DISCHARGE: 02/06/2017 DISCHARGE DISPOSITION: To home with home health. PRIMARY DISCHARGE DIAGNOSES: Suspected infective endocarditis around the aortic valve area, acute on chronic diastolic dysfunction with congestive heart failure exacerbation, resolved. SECONDARY DISCHARGE DIAGNOSES: History of renal transplant; diabetes mellitus, type 2; coronary artery disease; chronic anemia due to renal disease; dyslipidemia. PROCEDURES DONE DURING HOSPITALIZATION: The patient has had transthoracic echo done, which showed EF of 60%-65% with grade 1/3 diastolic dysfunction. He had mildly elevated pulmonary artery pressures estimated at 40 mmHg. Aortic valve was sclerotic and vegetation could not be ruled out on the transthoracic echo. Patient had a transesophageal echo done on 02/02/[address] Schaffer, which showed small flail mass on the noncoronary cusp of the aortic valve consistent with aortic valve endocarditis. CT of the abdomen and pelvis done on the day of admission showed moderate bilateral pleural effusions, moderate ascites, transplanted right kidney was not obstructed. LABORATORY DATA: Blood cultures x2 no growth. Discharge H&H 10 and 31, platelet count 211 with white count of 7 on the day of discharge. Admitting white count was 16 with 83% neutrophils. Discharge BUN and creatinine was 20 and 1.25. Discharge serum bicarbonate was 27. Initial BUN and creatinine was 23 and 1.8 with serum bicarbonate of 23 on the day of admission. BNP was 1409. Tacrolimus levels on the was 6.0 nanograms per mL. Lyme trough on the was 10.8 mcg/mL. INPATIENT CONSULTS: Dr. Schaffer for Cardiology, Dr. Ospina for Infectious Disease , Dr. Kim for Nephrology. DISCHARGE PLAN: Patient to follow up with Dr. Ospina as advised, weekly labs per Dr. Ospina' advice. He needs follow up with Dr. Kim in 1 week and primary care physician in 1 week. BRIEF COURSE DURING HOSPITALIZATION: Patient initially got admitted on the with complaints of increasing shortness of breath from last 2-3 weeks. He also had lower extremity edema with abdominal distention as well from last 4-5 days with orthopnea. He was essentially admitted for acute on chronic CHF exacerbation with diastolic dysfunction. He has had consultation with Cardiology, Nephrology, and Infectious Disease. Patient had a white count of 16 and had prescott cultures drawn, which were negative. He has had a transesophageal echo done, which showed signs of infective endocarditis around the aortic valve area. He has had diuresis done with patient losing almost 23 pounds during his stay. His renal function has remained stable. He was on broad spectrum antibiotics and has been advised to continue vancomycin 1.5 grams daily along with ceftriaxone 2 grams daily. He is currently awaiting insurance approval for outpatient antibiotics along with home health with nursing. Patient and are wanting this to be arranged at home via infusion [employer]. Case management is currently working on this. Once this is arranged, he can be safely discharged home. He needs to have weekly labs and close monitoring of his renal function as prescribed by Dr. Ospina. Please see a face- to-face documentation on [facility] for the day of discharge. WESTD
[2017-02-06] MEDS: cefTRIAXone\\ROCEPHIN 1 GM, Syringe 0.4 ML in Sterile Water 9.6 ML SLOW IVP SCH (14:26)
[2017-02-06] MEDS: Vancomycin HCl 1.75 GM in Sodium Chloride 0.9% 500 ML IVPB SCH (14:26)
[2017-02-06 15:57] VITALS: BP 127/67; TEMP 97.4
--- NOTE | 2017-02-06 16:07 | PRG ---
DATE OF SERVICE: 02/06/2017 SUBJECTIVE: Werner is feeling better. No headaches. No shortness of breath or abdominal pain, no di arrhea, no genitourinary symptoms. OBJECTIVE: VITAL SIGNS: The patient has been afebrile. LUNGS: Clear. HEART: S1, S2, regular rate. ABDOMEN: Soft, not distended. LABORATORY DATA: White cell count 7.7, hemoglobin 10.1, platelets 211. Creatinine 1.25, which is be tter than previous. Bartonella and Brucella serology negative. Currently on Rocephin and vancomycin . ASSESSMENT AND DISCUSSION: Renal transplant, coronary artery disease, bypass graft surgery, pulmonar y edema, abnormalities suggestive of endocarditis on transesophageal echocardiogram. 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 We will recommend continuation of vancomycin to Rocephin for 42 days.
--- NOTE | 2017-03-10 11:38 | EKG ---
Test Reason : SOB Blood Pressure : / mmHG Vent. Rate : 064 BPM Atrial Rate : 064 BPM P-R Int : 186 ms QRS Dur : 082 ms QT Int : 402 ms P-R-T Axes : 039 -07 155 degrees QTc Int : 414 ms Sinus rhythm with Premature atrial complexes Inferior infarct , age undetermined Cannot rule out Anterior infarct , age undetermined Abnormal ECG Confirmed by MARIE RODRIGUEZ D.O. ([id number]), editorial specialist COLIN FRIAS ([id number]) on 03/10/2017 11:38:37 AM Referred By: JENNIFER Confirmed By:MARIE RODRIGUEZ D.O.
== END 2017-02-06 18:00 | disposition home health service (06) | DRG 288 ==
LOC: SCSER 10:30 → 2NO 15:09
PROVIDERS: ADMIT Internal Medicine Addiction Medicine; ATTEND Internal Medicine Addiction Medicine
PROC: B246ZZ4 Ultrasonography of Right and Left Heart, Transesophageal (ICD-10-PCS; principal; 2017-02-02)
PROC: 02HV33Z Insertion of Infusion Device into Superior Vena Cava, Percutaneous Approach (ICD-10-PCS; 2017-02-05)
DX: I33.0 Acute and subacute infective endocarditis (principal); J18.9 Pneumonia, unspecified organism; J96.01 Acute respiratory failure with hypoxia; I50.33 Acute on chronic diastolic (congestive) heart failure; N17.9 Acute kidney failure, unspecified; E87.2 Acidosis; I13.0 Hypertensive heart and chronic kidney disease with heart failure and stage 1 through stage 4 chronic kidney disease, or unspecified chronic kidney disease; E11.22 Type 2 diabetes mellitus with diabetic chronic kidney disease; N25.81 Secondary hyperparathyroidism of renal origin; Z94.0 Kidney transplant status; D63.1 Anemia in chronic kidney disease; E87.70 Fluid overload, unspecified; I25.10 Atherosclerotic heart disease of native coronary artery without angina pectoris; Z95.1 Presence of aortocoronary bypass graft; Z79.899 Other long term (current) drug therapy; Z88.8 Allergy status to other drugs, medicaments and biological substances; Z79.82 Long term (current) use of aspirin; Z79.4 Long term (current) use of insulin; Z79.52 Long term (current) use of systemic steroids; E78.5 Hyperlipidemia, unspecified; K21.9 Gastro-esophageal reflux disease without esophagitis; Z87.891 Personal history of nicotine dependence; N18.2 Chronic kidney disease, stage 2 (mild); B96.89 Other specified bacterial agents as the cause of diseases classified elsewhere
CPT/HCPCS: 36415; 36416; 36569; 71010; 74176; 80048; 80053; 80197; 80202; 82553; 83605; 83690; 83880; 84484; 85025; 86611; 86622; 87040; 93005; 93306; 93312; 93798; 94640; 94760; 96365; A4216; C1751; G8978-GP-CI; G8979-GP-CI; G8980-GP-CI; J0696; J1650; J1940; J1956; J2001; J2704; J3370; J7050; J7507; J7517; J7620

== ENCOUNTER 2017-02-28 12:15 | Outpatient (CLI) | payer MEDICARE | END 2017-02-28 12:16 | disposition home or self-care (01) | LOC: BICRAD 12:15 | PROVIDERS: ATTEND Internal Medicine Cardiovascular Disease | DX: J90 Pleural effusion, not elsewhere classified (principal); I51.7 Cardiomegaly; Z95.1 Presence of aortocoronary bypass graft | CPT/HCPCS: 71020 ==

== ENCOUNTER → 2017-03-07 | Day surgery (SDC) | payer MEDICARE ==
[~2017-03-07] MED LIST: Heparin 1,000 UNITS/ML VIAL ONE
--- NOTE | 2017-03-07 13:25 | SPC ---
PICC LINE PLACEMENT AND REVISION: HISTORY: Recently nearly pulled out PICC line. COMPARISON: PICC line placement 02/05/17. FINDINGS: The PICC line tip was at the level of the axilla. PICC was then cut and the wire was placed with tip in the IVC. Over the wire, a [place] sheath was placed and a 43 cm PICC line was placed. The jacey ent tolerated the procedure well without complication. IMPRESSION: Technically successful fluoroscopically guided PICC line placement. POS: RHEA
== END ==
LOC: SPEC 10:04
PROVIDERS: ATTEND Internal Medicine Infectious Disease
DX: T82.524A Displacement of infusion catheter, initial encounter (principal); Z79.2 Long term (current) use of antibiotics; Z88.8 Allergy status to other drugs, medicaments and biological substances
CPT/HCPCS: 36569; C1751; J1644

== ENCOUNTER 2017-03-25 05:06 | Inpatient (IN) | payer MEDICARE ==
[2017-03-25 06:19] LABS: Mean Corpuscular HGB CONC 31.4 g/dL (32.0-36.0); Mean Corpuscular Hemoglobin 30.5 pg (27.0-31.0); Mean Platelet Volume 8.2 fL (7.4-10.4); Platelet Count 204 thou/uL (130-400); RBC Distribution Width 16.6 % (11.5-14.5); Red Blood Cell (RBC) Count 2.97 mill/uL (4.70-6.10); White Blood Cell (WBC) Count 5.1 thou/uL (4.8-10.8)
[2017-03-25 06:21] LABS: INR-International Normal Ratio 1.1; Prothrombin Time 14.1 SEC (12.0-14.7)
[2017-03-25 06:37] LABS: ALT (SGPT) 185 U/L (8-55); AST (SGOT) 215 U/L (5-34); Albumin 3.6 g/dL (3.4-4.8); Alkaline Phosphatase 159 U/L (40-150); Anion Gap 13 mmol/L (10-20); BUN (Urea Nitrogen) 25 mg/dL (8.4-25.7); Bilirubin, Total 0.6 mg/dL (0.2-1.2); Calc. Creatinine Clearance 0 mL/min (70-130); Calcium 8.9 mg/dL (7.8-10.44); Carbon Dioxide 21 mmol/L (23-31); Chloride 111 mmol/L (98-107); Estimated GFR-MDRD 35; Globulin 2.7 g/dL (2.4-3.5); Glucose 189 mg/dL (80-115); Magnesium 2.1 mg/dL (1.6-2.6); Potassium 4.6 mmol/L (3.5-5.1); Protein, Total 6.3 g/dL (5.8-8.1); Sodium 140 mmol/L (136-145)
[2017-03-25 06:41] LABS: CKMB 4.3 ng/mL (0-6.6); Troponin I 0.055 ng/mL (< 0.028)
[2017-03-25 06:50] LABS: Band 4 % (5-11); Lymphocytes 7 % (21-51); MDiff Complete? YES; Monocytes 6 % (0-10); Neutrophil 82 % (42-75)
[2017-03-25 07:45] LABS: Actual Bicarbonate (HCO3a) 21.1 mEq/L (22-26); Base Excess (BEa) -4.3 mEq/L (0 (+/-) 2.5); CO2 Tension 39.9 mmHg (35.0-45.0); Calcium, Ionized 1.2 mmol/L (1.12-1.30); Hematocrit-ABG 26.3 % (42.0-52.0); Hemoglobin (Hb) 8.1 g/dL (14.0-18.0); O2 Tension (PaO2) 107.1 mmHg (80.0-100.0); pH, Arterial 7.34 (7.35-7.45)
[2017-03-25 07:46] LABS: ALV-art Gradient 199.525 (0-20); Analyzer IN Cardio ER; Puncture Site RRA
[2017-03-25] MEDS ORDERED: Nitroglycerin 2% Ointment 1 INCH/1 GM Packet ONE (08:05)
[2017-03-25] MEDS ORDERED: Furosemide 100 MG/10 ML VIAL ONE (08:05)
--- NOTE | 2017-03-25 08:33 | RAD ---
FRONTAL VIEW CHEST: INDICATIONS: Dyspnea. Wheezing. COMPARISON: 01/31/2017 FINDINGS: There is a moderate to large volume right pleural effusion. Diffuse interstitial and alveolar opacit ies are present bilaterally with an enlarged cardiac silhouette and prominent pulmonary vasculature. There is a pleural-based density at the inferior left chest, indicating pleural fluid. No additiona l significant interval change. IMPRESSION: 1. Progressive, diffuse bilateral pulmonary parenchymal opacities, which may be on the basis of prog ressive edema. Superimposed pneumonia not excluded. Correlate clinically. 2. Moderate to large right pleural effusion. 3. Mild to moderate pleural effusion suspected at the inferior left chest, although largely obscured by the prominent cardiac silhouette and superimposed pulmonary parenchymal disease. Recommend eduar nued imaging followup. POS: RHEA
[2017-03-25] MEDS ORDERED: Acetaminophen 325 MG TAB PO PRN (09:01)
[2017-03-25] MEDS ORDERED: Ondansetron HCl/PF 4 MG/2 ML Vial IVP PRN (09:01)
[2017-03-25] MEDS ORDERED: cloNIDine 0.1 MG TAB PO PRN (09:01)
[2017-03-25] MEDS ORDERED: Dextrose 5% in Water 1,000 ML IV PRN (09:01)
[2017-03-25] MEDS ORDERED: HYDROcodone/Acetaminophen 5/325 mg Tablet PO PRN (09:01)
[2017-03-25] MEDS ORDERED: diphenhydrAMINE 50 MG/ML VIAL IVP PRN (09:01)
[2017-03-25] MEDS ORDERED: Mag-Al 1200 mg/1200 mg/30 ML UDCUP PO PRN (09:01)
[2017-03-25] MEDS ORDERED: Dextrose 50% Abboject 50 ML SYRINGE SLOW IVP PRN (09:01)
[2017-03-25] MEDS ORDERED: hydrALAZINE 20 MG/ML VIAL SLOW IVP PRN (09:18)
[2017-03-25 10:07] LABS: Free T4 (Free Thyroxine) 1.12 ng/dL (0.70-1.48)
[2017-03-25] MEDS: Carvedilol 3.125 MG TAB PO SCH (10:16)
[2017-03-25] MEDS ORDERED: Insulin Regular 300 UNITS/3 ML VIAL ONE (10:20)
[2017-03-25] MEDS ORDERED: hydrALAZINE 20 MG/ML VIAL ONE (10:20)
--- NOTE | 2017-03-25 10:31 | HP ---
DATE OF ADMISISON: 03/25/2017 PRIMARY CARE PHYSICIAN: Dr. Zabala. REASON FOR ADMISSION: Shortness of breath. HISTORY OF PRESENT ILLNESS: Mr. Stewart Caldera is a 71-year-old male with a past medical history of ch ronic diastolic congestive heart failure with an EF noted to be 60%-65%, coronary artery disease nece ssitating CABG, end-stage renal disease status post renal transplant, hypertension, diabetes mellitus type 2, dyslipidemia, history of infectious endocarditis who presents to the emergency room complain ing of shortness of breath, which initially began 2 days ago and has subsequently worsened. The jacey ent states that he felt like he was gaining more fluid. He denied any swelling in his lower extremit ies; however, documented weight has showed an increase in about 6 pounds since 03/12/2017. He denies any chest discomfort. He has a dry cough. Of note, the patient was recently admitted and discharge d from [facility] in 01/2017 at which time he was treated for infectious endocarditis in the aortic v alve and was given long-term outpatient antibiotics with vancomycin and Rocephin. He has completed t hese antibiotics. He returned back to the emergency room complaining of shortness of breath. Initia lly, he was here who found to be hypoxic and tachypneic. He was placed on BiPAP, breathing has impro jose roberto subsequently. He was given IV Lasix, as well as nitroglycerin. According to the patient, he was scheduled to receive a thoracentesis; however, this was postponed secondary to the patient needing t o go to [place] to follow up with his transplant physician. He is currently resting comfortably; how ever, he is still requiring BiPAP therapy. He was admitted to the Intermediate Care Unit for further evaluation. PAST MEDICAL HISTORY: 1. Infectious endocarditis with completion of antibiotic therapy. 2. Chronic diastolic congestive heart failure. 3. Hypertension. 4. Hyperlipidemia. 5. Hypothyroidism. 6. Diabetes mellitus type 2. 7. Status post kidney transplant. PAST SURGICAL HISTORY: 1. Fistula placement. 2. Kidney transplant. 3. CABG. CODE STATUS: FULL CODE. SOCIAL HISTORY: The patient is , ex-smoker. He quit in 2015. Denies any alcohol use or illi cit drug use. MEDICATIONS: 1. Prednisone 5 mg p.o. daily. 2. Clonidine 0.1 mg p.o. b.i.d. 3. Tacrolimus 0.5 mg p.o. b.i.d. 4. Bactrim 1 tablet Sunday, Sunday, Sunday. 5. Pravastatin 20 mg p.o. daily. 6. Nifedipine 90 mg p.o. daily. 7. CellCept 250 mg p.o. b.i.d. 8. Coreg 3.125 mg p.o. b.i.d. 9. Aspirin 81 mg p.o. daily. 10. Hydralazine 50 mg p.o. t.i.d. 11. Protonix 40 mg p.o. b.i.d. 12. Lasix 40 mg p.o. daily. 13. Uloric 80 mg p.o. daily. 14. Tylenol #3 p.r.n. ALLERGIES: DOXAZOSIN, AMLODIPINE. FAMILY HISTORY: No history of stroke, cancer or premature coronary artery disease. REVIEW OF SYSTEMS: As per HPI, unless otherwise negative. PHYSICAL EXAMINATION: CONSTITUTIONAL/VITAL SIGNS: Blood pressure most recently is 217/89, pulse 66, respirations are 20, t emperature is 97.9, he is 99% on BiPAP. EYES: Pupils are equal, round and reactive to light and accommodation, no scleral icterus, no pale c onjunctivae. ENT/MOUTH: Moist oral mucosa. RESPIRATORY: Equal chest wall expansion. He does have rales bilaterally, more pronounced on the rig ht than left. No accessory muscle use. CARDIOVASCULAR: S1, S2 present and a positive murmur. ABDOMEN: Soft, nontender, nondistended. Bowel sounds are present in all 4 quadrants. MUSCULOSKELETAL: Good range of motion in all 4 extremities. No clubbing or cyanosis. LYMPHATIC: No swollen or painful cervical or axillary lymph nodes. NEUROLOGIC: No ptosis, no facial asymmetry, no tongue deviation or jaw protrusion, no focal deficits . PSYCHIATRIC: He is awake, alert and oriented to time, place, and person. He answers questions appro priately. SKIN: No edema in his lower extremities. He does have a fistula with a good thrill on his left uppe r extremity. LABORATORY DATA AND X-RAY FINDINGS: Laboratory values taken in the emergency room and reviewed by me show a WBC of 5.1, hemoglobin 9.0, hematocrit 28.8, platelet count 204,000. Coags show INR 1.1. Bl ood gas shows pH 7.34, pCO2 39.9, pO2 is 107.1. Sodium 140, potassium 4.6, chloride 111, carbon diox marin 21, anion gap 13, BUN 25, creatinine 1.93, glucose 189, AST and ALT are 215 and 185, alkaline gucci sphatase is 159. Troponin 0.055, second set is 0.170. BNP is 1374. TSH is 7.1784. Chest x-ray done in the emergency room and reviewed by me reveals bilateral pulmonary edema. There i s a large right pleural effusion. EKG revealed sinus rhythm. No acute ST segment abnormalities. ASSESSMENT AND PLAN: Mr. Stewart Caldera is a 71-year-old male with a past medical history of chronic d iastolic congestive heart failure, infective endocarditis, status post kidney transplant who presents to the emergency room complaining of shortness of breath. 1. Shortness of breath secondary to pulmonary edema likely flash pulmonary edema with an acute or ch ronic diastolic congestive heart failure exacerbation. At this time, the patient is on BiPAP; howeve r, will require admission to the IMCU. He does have significant radiographic findings of pleural eff usion. At this time, we will initiate diuresis; however, we will need to monitor his BUN and creatin ine given his history of renal transplant. We will continue with IV diuretics and monitor his I's an d O's and weights. Pulmonary will be consulted for evaluation of a thoracentesis. 2. Hypertensive urgency. At this time, we will gradually decrease the patient's blood pressure. 3. Transaminitis, possibly secondary to passive congestion. We will continue to monitor his LFTs an d hold the statin. 4. Acute on chronic kidney disease. 5. Indeterminate troponins, most likely secondary to demand ischemia. 6. Hypothyroidism as per an elevated TSH. We will check free T3 and T4 as well as a repeat TSH to e nsure this is in the subclinical hypothyroidism. 7. Resume selected home medications. 8. P.r.n. order set. 9. Deep vein thrombosis prophylaxis. 10. Full code. 11. I explained all this to the patient at bedside. He is agreeable to the plan of treatment. All questions have been answered. 12. The patient's further hospital course will be dictated by clinical course while here.
[2017-03-25] MEDS: Insulin Regular 300 UNITS/3 ML VIAL SC PRN (10:32)
[2017-03-25 13:00] LABS: Troponin I 0.497 ng/mL (< 0.028)
[2017-03-25] MEDS ORDERED: Nitroglycerin 50 MG/250 ML BOT 250 ML IVPB SCH ×2 (13:00→13:30)
[2017-03-25] MEDS ORDERED: Nitroglycerin 50 MG/250 ML BOT 250 ML ONE (13:07)
[2017-03-25] MEDS ORDERED: Furosemide 40 MG/4 ML VIAL ONE (14:04)
--- NOTE | 2017-03-25 14:15 | CON ---
DATE OF CONSULTATION: 03/25/2017 SERVICE: Renal Medicine HISTORY OF PRESENT ILLNESS: Mr. Caldera is a 71-year-old white male with known history of renal transp lantation and admitted for shortness of breath. He was found to be in respiratory distress. Current ly, the patient is on BiPAP. He does have significant pleural effusion. Please note, recently the rigo claros was admitted for infective endocarditis with completion of IV antibiotics. We are now being c onsulted for his acute kidney injury on top of his underlying renal transplantation. He has also been started on IV Lasix. He is supposed to undergo thoracentesis in the next several da ys. REVIEW OF SYSTEMS: Positive for shortness of breath, no chest pain, no syncopal episode, no nausea, no vomiting, no fever or chills, no diarrhea, no constipation, no gross hematuria. No dysuria, no ur inary frequency, no abdominal pain. Appetite and energy level is decreased. No headache, no sore th roat, no joint pains, no new skin rash. MEDICATIONS: The patient is currently on Tylenol 650 mg q.4 hours p.r.n., DuoNeb q.6 hours p.r.n., C oreg 3.125 mg p.o. b.i.d., Catapres 0.1 mg b.i.d., furosemide 40 mg IV q.12 hours, heparin 5000 units subcutaneous t.i.d., Humulin R sliding scale, CellCept 500 mg p.o. b.i.d., nifedipine 90 mg daily, p rednisone 5 mg q.a.m. Prograf 6 mg p.o. b.i.d., Bactrim single strength 1 tab Sunday, Sunday, and Sunday. PAST MEDICAL HISTORY: 1. Recent diagnosis of infective endocarditis - patient finished IV antibiotics. 2. Status post ESRD. 3. Status post renal transplantation. 4. Coronary artery disease. 5. Hyperuricemia. 6. Tertiary hyperparathyroidism. 7. Hyperlipidemia. 8. Type 2 diabetes mellitus. PAST SURGICAL HISTORY: 1. Status post cadaveric renal transplant. 2. Status post cardiac catheterization. 3. Status post CABG. 4. Status post bilateral shoulder surgery. 5. Status post hand surgery. 6. Status post back surgery. 7. Status post PD catheter placement. SOCIAL HISTORY: The patient is and lives in [place], lives with his . Smoked fo r 30 years, one pack a day, currently no smoking. No alcohol intake. Status post blood transfusions . Sedentary lifestyle. ALLERGIES: DOXAZOSIN and AMLODIPINE. TRAUMA: None. IMMUNIZATIONS: Up to date. HOSPITALIZATIONS: Please see past medical history. FAMILY HISTORY: No family history of ESRD. PHYSICAL EXAMINATION: VITAL SIGNS: Blood pressure is noted at 190/70, pulse ox is at 100%. GENERAL: Awake on BiPAP, not in distress. SKIN: Adequate turgor. HEENT: He has slightly pale conjunctivae, anicteric sclerae. NECK: No neck mass, no carotid bruits, no JVD. CHEST: No deformities. LUNGS: Decreased breath sounds. HEART: Normal sinus rhythm. No murmur, no gallops or rubs. ABDOMEN: Globular, soft, nontender, no masses. EXTREMITIES: Positive for edema. NEUROLOGIC: Awake, oriented to 3 spheres. Moving all extremities. No tremors, no asterixis. LABORATORY DATA AND IMAGING: Chest x-ray of 03/25/2017 shows diffuse bilateral pulmonary parenchymal opacities with moderate to large right pleural effusion. White count 5.1, hemoglobin 9, sodium 140, potassium 4.6, chloride 111, carbon dioxide 21, BUN 25, creatinine 1.93, GFR 25 mL per minute, gluco se 189, AST 215, ALT is 185. Troponin I 0.17. BNP 1379. TSH 7.1. ASSESSMENT AND PLAN: 1. Acute kidney injury - I suspect prerenal azotemia superimposed on his underlying? of chronic cori l failure. Continue current diuretic regimen until we can stabilize his congestive heart failure. W e may need to advance the planned thoracentesis with this patient due to the moderate to large size p leural effusion. 2. Status post cadaveric renal transplant - continue current immunosuppressive regimen. No changes to be made. We will check a tacrolimus level in the a.m. No indication for any dialytic interventio n. Overall, I agree with current management.
[2017-03-25] MEDS ORDERED: Heparin 5,000 UNITS/ML VIAL ONE (14:54)
[2017-03-25 15:24] LABS: Troponin I 0.631 ng/mL (< 0.028)
[2017-03-25] MEDS ORDERED: Acetaminophen 325 MG TAB ONE ×2 (16:35→20:41)
[2017-03-25] MEDS ORDERED: Enoxaparin Sodium 60 MG/0.6 ML SYRINGE SC SCH (19:48)
[2017-03-25] MEDS ORDERED: cloNIDine 0.1 MG TAB ONE (20:02)
[2017-03-25] MEDS ORDERED: Enoxaparin Sodium 60 MG/0.6 ML SYRINGE ONE (20:02)
[2017-03-25] MEDS ORDERED: Carvedilol 3.125 MG TAB PO SCH ×2 (20:15→21:00)
[2017-03-25] MEDS ORDERED: Pravastatin Sodium 20 MG TAB PO SCH (21:00)
[2017-03-25] MEDS ORDERED: cloNIDine 0.1 MG TAB PO SCH (21:00)
[2017-03-25] MEDS ORDERED: Tacrolimus 0.5 MG CAP PO SCH (21:00)
[2017-03-25 23:55] VITALS: BMI 20.1
[2017-03-26 00:13] LABS: BF Color Yellow; Body Fluid Source THORACENTESIS FLD; Clarity Hazy (Clear)
[2017-03-26 00:14] LABS: BF RBC Count - Manual 6240 /cumm; BF WBC/Nonhematics Ct. - Manua 18 /cumm; Tube # EDTA
[2017-03-26] MEDS: cloNIDine 0.1 MG TAB PO SCH ×4 (00:32→21:34)
[2017-03-26] MEDS: NIFEdipine XL 90 MG TAB PO SCH ×2 (00:35→07:54)
[2017-03-26] MEDS: Furosemide 40 MG/4 ML VIAL SLOW IVP SCH ×3 (00:36→13:16)
[2017-03-26] MEDS: Heparin 5,000 UNITS/ML VIAL SC SCH ×3 (00:36→13:16)
[2017-03-26] MEDS: Carvedilol 3.125 MG TAB PO SCH ×3 (00:38→21:34)
[2017-03-26] MEDS: Tacrolimus 1 MG CAP PO SCH ×3 (00:39→21:31)
[2017-03-26] MEDS: Mycophenolate 250 MG CAP PO SCH ×3 (00:39→21:31)
[2017-03-26 01:58] LABS: BF Segmented Neutrophils 15 %; Cell Count Non Hematic 9 %; Eosinophils 1 %; Lymphocytes 75 %
--- NOTE | 2017-03-26 02:28 | OP ---
DATE OF SERVICE: 03/25/2017 SERVICE: Pulmonary Medicine. PROCEDURE: Right-sided pleural drainage with catheter insertion under ultrasound guidance. CONSENT: The risks and benefits of this procedure were explained to the patient. All questions were answered and alternative options explained. STAFF PHYSICIAN: Julito Fontanez M.D. MEDICATIONS USED: Lidocaine 1% without epinephrine, total quantity 10 mL. PREPROCEDURE DIAGNOSES: 1. Acute hypoxic respiratory failure. 2. Pleural effusion. POSTPROCEDURE DIAGNOSES: 1. Acute hypoxic respiratory failure. 2. Pleural effusion. DESCRIPTION OF PROCEDURE: A timeout was performed by the procedure team and patient. The patient wa s positively identified using name and date of . The procedure site was marked. Vital sign mon itoring was accomplished by noninvasive hemodynamic monitoring, pulse oximetry, and telemetry. In th e seated position, the right posterior hemithorax was examined using ultrasound probe. The diaphragm and pleural fluid were easily identified. The skin was prepped and draped in sterile fashion and an esthetized with 1% lidocaine without epinephrine. A finder needle was inserted in the pleural space with return of cloudy, minimally viscous rina colored fluid. A pleural drainage catheter was then in serted in the same location and a total quantity of 600 mL of pleural fluid was withdrawn by syringe pump technique. A sample was sent for analysis. Evacuation of fluid was terminated because I arrive d at -20 cm of pleural fluid. The patient remained asymptomatic and there was probably at least 800 mL of fluid left in the chest. The entire catheter was withdrawn on exhalation and a sterile dressin g was applied. The patient had stable vital signs throughout the entire procedure. ESTIMATED BLOOD LOSS: None. COMPLICATIONS: None.
[2017-03-26 04:28] LABS: #Lymphocytes 1.2 thou/uL (1.20-3.40); #Monocytes 0.8 thou/uL (0.11-0.59); %Basophils 0.7 % (0.0-1.0); %Eosinophils 0.3 % (0.0-10.0); %Lymphocytes 19.1 % (21.0-51.0); %Monocytes 13.4 % (0.0-10.0); %Neutrophils 66.6 % (42.0-75.0); Mean Corpuscular HGB CONC 32.5 g/dL (32.0-36.0); Mean Corpuscular Hemoglobin 31.2 pg (27.0-31.0); Mean Platelet Volume 8.5 fL (7.4-10.4); Platelet Count 170 thou/uL (130-400); RBC Distribution Width 16.3 % (11.5-14.5); Red Blood Cell (RBC) Count 2.55 mill/uL (4.70-6.10); White Blood Cell (WBC) Count 6.1 thou/uL (4.8-10.8)
--- NOTE | 2017-03-26 05:32 | CON ---
DATE OF CONSULTATION: 03/25/2017 SERVICE: Pulmonary Medicine. REASON FOR CONSULTATION: Pleural effusion. HISTORY OF PRESENT ILLNESS: The patient is a very pleasant 71-year-old white male with past medical history significant for chronic diastolic heart failure and history of infectious endocarditis. He had chronic kidney disease and underwent a kidney transplant in June of last year. Since then, he has been slowly deteriorating. He presented to the hospital because of weight gain and increasing difficulty with breathing. In the emergency department, chest x-ray was performed demonstrated a right-sided pleural effusion which is large, small to moderate size left-sided pleural effusion, and extensive infiltrates throughout bilateral lung price. He was identified as having a pleural effusion in the outpatient setting a couple of days ago. We attempted to get him in the very next day for thoracentesis, but unfortunately, he had to see a physician in [place]. He presented to the emergency department because of increasing difficulty with breathing. PAST MEDICAL HISTORY: 1. Infectious endocarditis, status post full course of antibiotics per Dr. Ospina. 2. Chronic diastolic heart failure. 3. Hypertension. 4. Dyslipidemia. 5. Hypothyroidism. 6. Type 2 diabetes mellitus. 7. Status post kidney transplant. PAST SURGICAL HISTORY: 1. Fistula placement. 2. Kidney transplant. 3. Coronary artery bypass graft. SOCIAL HISTORY: Negative for alcohol, tobacco or illicit drug use. The patient is . He quit smoking in 2015 and prior to that had a greater than [id number] history. He denies any alcohol or illicit drug. He has no exposure to chemicals, dust, asbestos or tuberculosis. FAMILY HISTORY: Noncontributory. ALLERGIES: DOXAZOSIN AND AMLODIPINE. MEDICATIONS: List of his inpatient medications was reviewed. No specific updates were made at this time. REVIEW OF SYSTEMS: General, head, ears, eyes, nose, throat, cardiovascular, respiratory, GI, , musculoskeletal, neurologic and skin is negative except as mentioned in the HPI. PHYSICAL EXAMINATION: VITAL SIGNS: Afebrile; pulse 87; respirations 14; saturation 100%, currently on 50% FiO2 with a PEEP of 5 via BiPAP at 10/5. HEENT: Normocephalic, atraumatic. Sclerae are white, conjunctivae pink. Oral and nasal mucosa is moist without lesions. LUNGS: Decent air entry with crackles throughout bilateral lung price. There is decreased air entry at the right base. No prolonged expiratory phase is appreciated. HEART: Normal rate, regular. ABDOMEN: Soft, nontender, nondistended, bowel sounds positive. MUSCULOSKELETAL: No cyanosis or clubbing. There is 1-2+ pitting in the bilateral lower extremities. LABORATORY DATA: WBC 5.1, hemoglobin 9.0, platelets 204,000. Neutrophil is 82% . INR is 1.1. PH of 7.34, pCO2 of 39, PO2 of 107 on 50% FiO2 at that time. Cardiac enzymes continue to trend upward to 0.631. Blood sugars ranged from 213 to 248. Creatinine is 1.93. Basic metabolic profile is otherwise unremarkable. AST, ALT and alkaline phosphatase are all elevated. BNP is 1374. TSH is 7.1. Free T3 and free T4 are normal. IMAGING: Chest x-ray demonstrates bilateral pleural effusions, the right is greater than the left. There is a cardiomegaly present. Sternotomy wires are in place. There is cephalization and pulmonary vascular engorgement, which is evident. Bilateral interstitial alveolar opacifications are present. These findings could be consistent with significant volume overload. ASSESSMENT: 1. Acute hypoxic respiratory failure. 2. Pleural effusion, bilateral right greater than left. 3. Pulmonary infiltrate. 4. Immunocompromised state. PLAN: We will proceed with a thoracentesis, so that we can further identify the characteristics of these fluids. The patient does not appear to have any significant infectious profile. That being said, he is immunocompromised. We will watch him clinically for any evidence of SIRS. Of note, he is on prophylaxis with single strength Bactrim 3 times weekly. 70 minutes have been devoted to this patient in various activities. I personally reviewed all imaging studies and laboratory data noted within this document. For at least half of this time, I was interacting with the patient at bedside or coordinating care with the care team. For the remainder of the time, I was immediately available to the patient in the hospital unit. BRENDA
[2017-03-26] MEDS: Insulin Regular 300 UNITS/3 ML VIAL SC PRN ×3 (06:21→21:47)
[2017-03-26 06:57] LABS: ALT (SGPT) 92 U/L (8-55); AST (SGOT) 46 U/L (5-34); Albumin 3.1 g/dL (3.4-4.8); Alkaline Phosphatase 96 U/L (40-150); Anion Gap 13 mmol/L (10-20); BUN (Urea Nitrogen) 36 mg/dL (8.4-25.7); Bilirubin, Direct 0.2 mg/dL (0.1-0.3); Bilirubin, Total 0.4 mg/dL (0.2-1.2); Calc. Creatinine Clearance 40 mL/min (70-130); Calcium 8.7 mg/dL (7.8-10.44); Carbon Dioxide 23 mmol/L (23-31); Chloride 107 mmol/L (98-107); Estimated GFR-MDRD 44; Glucose 344 mg/dL (80-115); Potassium 4.5 mmol/L (3.5-5.1); Protein, Total 5.4 g/dL (5.8-8.1); Sodium 138 mmol/L (136-145)
[2017-03-26] MEDS: predniSONE 5 MG TAB PO SCH (07:56)
[2017-03-26] MEDS ORDERED: Aspirin 81 mg Enteric Coated Tablet PO SCH (09:00)
--- NOTE | 2017-03-26 09:37 | PRG ---
DATE OF SERVICE: 03/26/2017 SUBJECTIVE: Mr. Caldera is a 71-year-old white male who is status post cadaveric renal transplant and admitted for shortness of breath. He was noted to have congestive heart failure as well as significa nt pleural effusion. He underwent emergent thoracentesis of the right lung and this brought almost s ymptomatic relief with the patient during that time. He is feeling better this morning. Shortness o f breath is much improved. We are following him up for his renal transplant management. PHYSICAL EXAMINATION: VITAL SIGNS: Blood pressure is ranging from 168/41 to 192/56 with a heart rate of 59, respiratory 16 , pulse ox 100%. GENERAL: Awake, alert, comfortable, not in distress. SKIN: Adequate turgor. HEENT: Slightly pale conjunctivae, anicteric sclerae. NECK: No neck mass, no carotid bruits, no JVD. CHEST: No deformities. LUNGS: Clear breath sounds. No wheezing, no crackles. HEART: Normal sinus rhythm. No murmur, no gallops or rubs. ABDOMEN: Globular, soft, nontender, no masses. EXTREMITIES: No edema, no deformities. MEDICATIONS: 03/26/2017 - Reviewed. LABORATORIES: 03/26/2017 - White count 6.1, hemoglobin 8. Sodium 138, potassium 4.5, chloride 107, carbon dioxide 23, BUN 36, creatinine 1.58, glucose 344, calcium 8.7, AST 46, ALT 92, albumin is 3.1. ASSESSMENT AND PLAN: 1. Status post cadaveric renal transplant, stabilizing renal function. Creatinine improved from 1.9 9-1.58. I feel that there is a superimposed prerenal azotemia. We will continue with his current im munosuppressive regimen. A tacrolimus level will be sent this morning. 2. Shortness of breath - clinically improved after thoracentesis. Pulmonary following. 3. For the moment, continue current diuretic regimen. 4. Anemia. Continue to observe. We will be rechecking a basic met and CBC in a.m.
[2017-03-26] MEDS: Sulfameth/Trimethoprim SS 400-80MG TAB PO SCH (10:21)
--- NOTE | 2017-03-26 16:49 | PRG ---
DATE OF SERVICE: 03/26/2017 SERVICE: Pulmonary Medicine. INTERVAL HISTORY: The patient is doing really well from a respiratory standpoint. He is on room air. Ever since he arrived to the [facility] on BiPAP, it was discontinued. Otherwise, there has been no other overnight events. PHYSICAL EXAMINATION: VITAL SIGNS: Afebrile, pulse 65, blood pressure 158/65, respirations 16, saturation 92% on room air. GENERAL: The patient is awake and alert, in no apparent distress. LUNGS: Decreased air entry in the bibasilar region, it is slightly worse on the right. There are crackles still present, but there is no prolonged expiratory phase or wheezing. HEART: Normal rate, regular. ABDOMEN: Soft, nontender, nondistended. Bowel sounds are positive. MUSCULOSKELETAL: No cyanosis or clubbing. There is 2+ pitting in the bilateral lower extremities. NEUROLOGIC: Grossly nonfocal. LABORATORY DATA: WBC 6.1, hemoglobin 8.0, platelets 170,000. Neutrophil count has returned to normal. INR 1.1. PH 7.34, pCO2 of 39, pO2 of 107. Creatinine improved to 1.58. Basic metabolic profile, liver function studies are essentially unremarkable/improving. TSH is normal. The body fluid has 75% lymphocytes. The pH is normal, total protein 1.0, LDH is 82, glucose 181, all consistent with a clear transudate. Body fluid cultures negative to date. ASSESSMENT: 1. Acute hypoxic respiratory failure, vastly improved. 2. Pleural effusion, bilateral, status post thoracentesis on the right, demonstrating clear transudate. 3. Pulmonary infiltrate. 4. Immunocompromised state. PLAN: We will repeat a chest x-ray in the morning. The left-sided pleural effusion is resolving, no diagnostic studies will be performed there. We will simply repeat an x-ray in the outpatient setting. We will continue diuresing until he returns to euvolemia. Pulmonary Critical Care will continue to follow up for the time being. BRENDA
--- NOTE | 2017-03-26 21:29 | PDOC.PN ---
- Subjective Encounter Start Date: 03/26/17 Encounter Start Time: 17:45 Patient seen and examined. SOB improving. No overnight events - Objective Resuscitation Status: Resuscitation Status FULL:Full Resuscitation MAR Reviewed: Yes Vital Signs & Weight: Vital Signs (12 hours) Temp Pulse Resp BP Pulse Ox 03/26/17 13:34 98.2 F 65 16 92 L 03/26/17 13:28 65 16 158/65 H 92 L 03/26/17 12:30 96 03/26/17 11:17 97.9 F 54 L 16 130/44 L 96 Weight Admit Weight 140 lb 3.2 oz Weight 140 lb 3.2 oz I&O: 03/25/17 03/26/17 03/27/17 06:59 06:59 06:59 Intake Total 280 765 Output Total 450 1550 Balance -170 -785 Result Diagrams: 03/27/17 05:36 03/27/17 05:36 Additional Labs: Accuchecks 03/26/17 03/26/17 03/26/17 20:22 17:04 12:50 POC Glucose 279 H 105 327 H 03/26/17 03/26/17 05:06 00:10 POC Glucose 310 H 214 H EKG Reviewed by me: Yes (Tele SR) Phys Exam - Physical Examination Constitutional: NAD Respiratory: no wheezing, no rhonchi Scat rales at bases, Symmetrical Cardiovascular: RRR, no rub no heaves/pulsations Gastrointestinal: soft, non-tender, no distention, positive bowel sounds Musculoskeletal: no edema Neurological: non-focal, moves all 4 limbs Psychiatric: A&O x 3 Dx/Plan - Plan DVT proph w/SCDs IMPRESSION: 1. Acute hypoxic respiratory failure due to Acute on chronic diastolic heart failure/pulmonary edema s/p NIPPV 2. Pleural effusion s/p thoracentesis - transudate 3. Hypertensive crisis 4. Recent Aortic valve endocarditis - completed Atbx 5. CKD 3/h/o renal transplant - on immunosuppressants 6. CAD s/p CABG 7. Elevated troponins due to CHF/demand ischemia 8. DM2/HLD/former smoker/hypothyroidism PLAN: * Cont diuresis with Lasix 40 mg BID * Cardio/Pulm/Renal following * Resume home dose of PO hydralazine * AM labs * Cont to monitor Review of Systems - Review of Systems Cardiovascular: negative: chest pain, palpitations, orthopnea, paroxysmal nocturnal dyspnea, edema, light headedness Gastrointestinal: negative: Nausea, Vomiting, Abdominal Pain, Diarrhea, Constipation, Melena, Hematochezia - Medications/Allergies Allergies/Adverse Reactions: Allergies Allergy/AdvReac Type Severity Reaction Status Date / Time amlodipine AdvReac Verified 02/03/17 23:26 doxazosin AdvReac Stomach Verified 02/03/17 23:26 Ache hydralazine AdvReac Verified 02/03/17 23:26 Medications: Current Medications Acetaminophen (Tylenol) 650 mg PO Q4H PRN PRN Reason: Headache/Fever or Pain Hydrocodone Bitart/Acetaminophen ([place] 5/325) 1 tab PO Q4H PRN PRN Reason: Moderate Pain (4-6) Al Hydroxide/Mg Hydroxide (Maalox) 30 ml PO Q6H PRN PRN Reason: Heartburn or Indigestion Albuterol/Ipratropium (Duoneb) 3 ml NEB [id number] PRN PRN Reason: SOB &/or Wheezing Asp[facility]in ([facility]) [facility] Calcium/Vitamin D (Caltrate 600 + Vit D) 1 tab PO BID-[facility] Carvedilol (Coreg) 3.125 mg PO BID [facility] Last Admin: 03/26/17 08:01 Dose: 3.125 mg Clonidine (Catapres) 0.1 mg PO Q4H PRN PRN Reason: Systolic BP > 180 Clonidine (Catapres) 0.1 mg PO BID [facility] Last Admin: 03/26/17 07:54 Dose: 0.1 mg Dextrose/Water (Dextrose 50%) 25 gm SLOW IVP PRN PRN PRN Reason: Hypoglycemia Diphenhydramine HCl (Benadryl) 25 mg IVP Q4H PRN PRN Reason: Itching AND HIVES Furosemide (Lasix) 40 mg SLOW IVP 0600,1400 [facility] Last Admin: 03/26/17 13:16 Dose: 40 mg Glucagon (Glucagon) 1 mg IM PRN PRN PRN Reason: Hypoglycemia Hydralazine HCl (Apresoline) 10 mg SLOW IVP Q4H PRN PRN Reason: SBP Greater Than 170 Last Admin: 03/26/17 03:28 Dose: 10 mg Hydralazine HCl (Apresoline) 50 mg PO TID [facility] Dextrose/Water (D5w) 1,000 mls @ 0 mls/hr IV .Q0M PRN; As Directed PRN Reason: Hypoglycemia Insulin Human Regular (Humulin R) 0 units SC .MILD SLIDING SCALE PRN PRN Reason: Mild Correctional Scale Mycophenolate Mofetil (Cellcept) 500 mg PO BID [facility] Last Admin: 03/26/17 07:56 Dose: 500 mg Nifedipine (Procardia Xl) 90 mg PO DAILY [facility] Last Admin: 03/26/17 07:54 Dose: 90 mg Non-Formulary Medication (Insulin Degludec [Tresiba Flextouch U-100]) 5 unit SQ DAILY [facility] Ondansetron HCl (Zofran) 4 mg IVP Q6H PRN PRN Reason: Nausea/Vomiting Pantoprazole Sodium (Protonix) 40 mg PO DAILY [facility] Prednisone (Prednisone) 5 mg PO QAM-WM [facility] Last Admin: 03/26/17 07:56 Dose: 5 mg Tacrolimus (Prograf) 6 mg PO BID [facility] Last Admin: 03/26/17 07:55 Dose: 6 mg Trimethoprim/Sulfamethoxazole (Bactrim Ss) 1 tab PO MoWeFr@0900 [facility] Last Admin: 03/26/17 10:21 Dose: 1 tab
[2017-03-26] MEDS: hydrALAZINE 25 MG TAB PO SCH (21:34)
[2017-03-27] MEDS: Furosemide 40 MG/4 ML VIAL SLOW IVP SCH ×2 (05:43→14:45)
--- NOTE | 2017-03-27 06:03 | CON ---
DATE OF CONSULTATION: 03/26/2017 HISTORY OF PRESENT ILLNESS: Stewart Caldera is a pleasant 71-year-old white male with multiple medical problems. He underwent CABG x3, 2 or 3 years ago. This was then followed by renal transplant after the bypass. He then was admitted in 01/2017 with diastolic heart failure. He had a foot wound and grew methicillin-resistant Staph aureus. Also, on transesophageal echo was felt that he had vegetation on his aortic valve, and so he has been treated with antibiotics, vancomycin, and Rocephin. He has completed the course of those antibiotics. He now is admitted with increased shortness of breath. He stated that he had been constipated, it seems that he was gaining weight and he thought that it was because he was constipated. He felt very thirsty, so he started drinking more fluids and did not take his diuretics. He just started having problems with worsening shortness of breath. He did have a thoracentesis during this admission by Dr. Fontanez. Initially, he required BiPAP, but he has been diuresed and currently is very comfortable on room air. PAST MEDICAL HISTORY: Diabetes, hypertension, hyperlipidemia, GERD, coronary artery disease, anemia, end-stage renal disease status post transplant, hyperthyroidism, hypouricemia. OPERATIONS: CABG, cataract surgery, bilateral shoulder surgery, back surgery, kidney transplant, left-thumb surgery. SOCIAL HISTORY: Quit smoking in 2016. He does not drink. FAMILY HISTORY: Unremarkable. REVIEW OF SYSTEMS: A 12-point review of systems is unremarkable. MEDICATIONS: Aspirin 81 daily, calcitriol 1 tablet daily, Tums 1000 mg p.r.n., carvedilol 3.125 b.i.d., Catapres 0.1 mg b.i.d., Uloric 80 mg q.a.m., furosemide 40 daily, hydralazine 50 t.i.d., Humalog, insulin, isosorbide dinitrate 10 mg b.i.d., CellCept 2 capsules b.i.d., nifedipine 90 daily, Protonix 40 mg b.i.d., pravastatin 20 mg q.p.m., prednisone 5 mg daily, vitamin, sodium bicarbonate 2 tablets b.i.d., tacrolimus 12 capsules b.i.d., Bactrim p.r.n. ALLERGIES: AMLODIPINE, DOXAZOSIN, AND HYDRALAZINE. PHYSICAL EXAMINATION: VITAL SIGNS: Blood pressure 158/65, pulse of 65, sinus rhythm on the monitor. HEENT: PERRL. NECK: Supple. LUNGS: Chest reveals very distant breath sounds, but clear. CARDIOVASCULAR: S1 and S2 are normal. There is 1/6 systolic murmur. ABDOMEN: Normal bowel sounds without tenderness or organomegaly. EXTREMITIES: Revealed no clubbing, cyanosis, or edema. NEUROLOGIC: Grossly intact. SKIN: Warm and dry. LABORATORY DATA: EKG revealed normal sinus rhythm with premature supraventricular ectopic beat, nonspecific ST and T-wave changes. Hemoglobin 8.0, hematocrit 24.5, white count 6100, platelets 170,000. INR 1.1, pH 7.34, pCO2 of 39.9, pO2 of 107.1. Sodium 138, potassium 4.5, chloride 107, carbon dioxide 23, BUN 36, creatinine 1.58. Troponin I 0.631, BNP 1374.9. IMPRESSION: 1. Diastolic heart failure with ejection fraction of 60% to 65% on last admission. 2. History of aortic valve endocarditis. 3. Status post coronary artery bypass graft x3. 4. Renal transplant. 5. Hypertension. 6. Hypercholesterolemia. 7. Diabetes. 8. Former smoker. PLAN: Mr. Caldera at home was only taking Lasix on a p.r.n. basis and may need to be on more scheduled dose. Echocardiogram will be performed to reassess the aortic valve to reassure ourselves that there has not been any significant damage from his endocarditis. [facility]
[2017-03-27 06:13] LABS: Anion Gap 14 mmol/L (10-20); BUN (Urea Nitrogen) 34 mg/dL (8.4-25.7); Calc. Creatinine Clearance 51 mL/min (70-130); Calcium 8.6 mg/dL (7.8-10.44); Carbon Dioxide 23 mmol/L (23-31); Chloride 103 mmol/L (98-107); Estimated GFR-MDRD 58; Glucose 98 mg/dL (80-115); Magnesium 1.6 mg/dL (1.6-2.6); Potassium 4.4 mmol/L (3.5-5.1); Sodium 136 mmol/L (136-145)
[2017-03-27 06:57] LABS: Hemoglobin 8.4 g/dL (14.0-18.0); Mean Corpuscular HGB CONC 31.7 g/dL (32.0-36.0); Mean Corpuscular Hemoglobin 30.4 pg (27.0-31.0); Mean Platelet Volume 8.5 fL (7.4-10.4); Platelet Count 184 thou/uL (130-400); RBC Distribution Width 16.4 % (11.5-14.5); Red Blood Cell (RBC) Count 2.77 mill/uL (4.70-6.10); White Blood Cell (WBC) Count 6.5 thou/uL (4.8-10.8)
[2017-03-27 08:17] LABS: Band 8 % (5-11); Eosinophils 2 % (0-10); Lymphocytes 26 % (21-51); MDiff Complete? YES; Monocytes 15 % (0-10); Neutrophil 48 % (42-75); Nucleated RBC 1 % (0); PLT Morphology Comment Appears Adequate; Polychromasia SLIGHT = 2-3 cells (100X) (0-2/hpf)
--- NOTE | 2017-03-27 08:51 | RAD ---
CHEST TWO VIEWS: History: Pleural effusion. Thoracentesis. Dyspnea. Comparison: 03-25-17 FINDINGS: Cardiac silhouette remains upper limits of normal. Pulmonary vasculature is less engorged than on the prior study. There is improved aeration of the each lung. Right pleural fluid and right lower lobe p arenchymal opacity are similar in appearance to the prior exam. Left pleural fluid is now evident on the lateral view. Mediastinum is midline with post-operative changes and aortic calcification. Lungs are hyperinflated. Metallic clips overlie the left axilla. Anchors overlie the right humeral head. IMPRESSION: 1. Bilateral pleural fluid, right greater than left, appears stable. No evidence of pneumothorax. 2. Significant interval decrease in pulmonary vascular congestion with improved aeration of the lungs . 3. Aortic calcification. POS: [facility]
[2017-03-27] MEDS ORDERED: Aspirin 81 mg Enteric Coated Tablet PO SCH (09:00)
[2017-03-27] MEDS: hydrALAZINE 25 MG TAB PO SCH ×3 (10:08→21:11)
[2017-03-27] MEDS: Mycophenolate 250 MG CAP PO SCH ×2 (10:13→21:11)
[2017-03-27] MEDS: NIFEdipine XL 90 MG TAB PO SCH (10:13)
[2017-03-27] MEDS: Carvedilol 3.125 MG TAB PO SCH ×2 (10:13→21:10)
[2017-03-27] MEDS: Calcium Carbonate + Vit D 1 TAB PO SCH ×2 (10:13→16:31)
[2017-03-27] MEDS: predniSONE 5 MG TAB PO SCH (10:13)
[2017-03-27] MEDS: Tacrolimus 1 MG CAP PO SCH ×2 (10:14→21:12)
[2017-03-27] MEDS: cloNIDine 0.1 MG TAB PO SCH ×2 (10:14→21:10)
[2017-03-27] MEDS: Insulin Regular 300 UNITS/3 ML VIAL SC PRN ×2 (13:40→17:40)
[2017-03-27] MEDS: INSULIN DEGLUDEC 5 UNIT SQ SCH (16:32)
[2017-03-27 17:34] LABS: Glucose Accucheck Confirmation 741 mg/dl (80-115)
[2017-03-27] MEDS ORDERED: Insulin Regular 300 UNITS/3 ML VIAL SC PRN (17:48)
--- NOTE | 2017-03-27 18:08 | PDOC.CTH ---
Cardiology Progress Note - Subjective He is doing better. His breathing is close to baseline. - Objective Vital Signs Temp Pulse Resp BP BP Pulse Ox 03/27/17 16:31 59 L 132/64 03/27/17 15:25 98.5 F 59 L 18 132/64 96 03/27/17 11:40 98.1 F 55 L 16 113/51 L 97 03/27/17 10:14 109/51 L 03/27/17 10:13 55 L 109/51 L 03/27/17 10:08 55 L 109/51 L 03/27/17 08:00 98.1 F 55 L 18 98 Admit Weight 140 lb 3.2 oz Weight 140 lb 03/26/17 03/27/17 03/28/17 06:59 06:59 06:59 Intake Total 280 1005 720 Output Total 450 2150 Balance -170 -1145 720 - Physical Examination General/Neuro: alert & oriented x3, NAD Neck: no JVD present Lungs: unlabored respirations, other: (Reduced breath sounds on right base. ) Heart: RRR Abdomen: NT/ND Extremities: other: (no edema.) - Telemetry Telemetry Rhythm: NSR - Labs Result Diagrams: 03/27/17 05:36 03/27/17 05:36 Troponin/CKMB CK-MB (CK-2) 4.3 ng/mL (0-6.6) 03/25/17 05:58 Troponin I 0.631 ng/mL (< 0.028) H* 03/25/17 14:47 - Assessment/Plan 1. Acute on chronic diastolic heart failure. 2. Moderate to severe MR 3. Healed aortic valve vegetation, moderate AI. 4. Bilateral pleural effusions, likley from heart failure. PLAN: - Switch to PO lasix tomorrow, - Will plan to do a fluid restriction of less than 2000 ml daily. - Will start scheduling lasix at 20 mg po BID every day and he will check his weight and will increase his lasix to 40 mg BID when his weight has increased by 3 pounds in 2 days. - May discharge home tomorrow if remains stable. - BMP in 2 weeks. - Follow up in the office in 2 weeks.
--- NOTE | 2017-03-27 18:13 | PDOC.PN ---
- Subjective Encounter Start Date: 03/27/17 Encounter Start Time: 18:11 Patient seen and examined. No new complaints. SOB better. No overnight events - Objective Resuscitation Status: Resuscitation Status FULL:Full Resuscitation MAR Reviewed: Yes Vital Signs & Weight: Vital Signs (12 hours) Temp Pulse Resp BP BP Pulse Ox 03/27/17 16:31 59 L 132/64 03/27/17 15:25 98.5 F 59 L 18 132/64 96 03/27/17 11:40 98.1 F 55 L 16 113/51 L 97 03/27/17 10:14 109/51 L 03/27/17 10:13 55 L 109/51 L 03/27/17 10:08 55 L 109/51 L 03/27/17 08:00 98.1 F 55 L 18 98 Weight Admit Weight 140 lb 3.2 oz Weight 140 lb I&O: 03/26/17 03/27/17 03/28/17 06:59 06:59 06:59 Intake Total 280 1005 720 Output Total 450 2150 Balance -170 -1145 720 Result Diagrams: 03/27/17 05:36 03/27/17 05:36 Additional Labs: Accuchecks 03/27/17 03/27/17 03/26/17 11:40 05:58 20:22 POC Glucose 294 H 108 279 H EKG Reviewed by me: Yes (Tele SR) Phys Exam - Physical Examination Constitutional: NAD Respiratory: no wheezing, no rhonchi Scat rales at bases Cardiovascular: RRR Gastrointestinal: soft, non-tender, positive bowel sounds Musculoskeletal: no edema Neurological: moves all 4 limbs Dx/Plan - Plan DVT proph w/SCDs IMPRESSION: 1. Acute hypoxic respiratory failure due to Acute on chronic diastolic heart failure/pulmonary edema s/p NIPPV 2. Pleural effusion s/p thoracentesis - transudate 3. Hypertensive crisis - BP better 4. Recent Aortic valve endocarditis - completed Atbx 5. CKD 3/h/o renal transplant - on immunosuppressants - Nephro following 6. CAD s/p CABG 7. Elevated troponins due to CHF/demand ischemia 8. DM2/HLD/former smoker/hypothyroidism PLAN: * Change Lasix to PO - per Cardiology * Cardio/Pulm following * AM labs * Cont to monitor * Cont current meds as below Review of Systems - Review of Systems Cardiovascular: negative: chest pain, palpitations, orthopnea, paroxysmal nocturnal dyspnea, edema, light headedness Gastrointestinal: negative: Nausea, Vomiting, Abdominal Pain, Diarrhea, Constipation, Melena, Hematochezia - Medications/Allergies Allergies/Adverse Reactions: Allergies Allergy/AdvReac Type Severity Reaction Status Date / Time amlodipine AdvReac Verified 02/03/17 23:26 doxazosin AdvReac Stomach Verified 02/03/17 23:26 Ache hydralazine AdvReac Verified 02/03/17 23:26 Medications: Current Medications Acetaminophen (Tylenol) 650 mg PO Q4H PRN PRN Reason: Headache/Fever or Pain Hydrocodone Bitart/Acetaminophen ([place] 5/325) 1 tab PO Q4H PRN PRN Reason: Moderate Pain (4-6) Al Hydroxide/Mg Hydroxide (Maalox) 30 ml PO Q6H PRN PRN Reason: Heartburn or Indigestion Albuterol/Ipratropium (Duoneb) 3 ml NEB [id number] PRN PRN Reason: SOB &/or Wheezing Aspirin (Ecotrin) 81 mg PO [facility] Last Admin: 03/27/17 10:13 Dose: 81 mg Calcium/Vitamin D (Caltrate 600 + Vit D) 1 tab PO BID-[facility] Last Admin: 03/27/17 16:31 Dose: 1 tab Carvedilol (Coreg) 3.125 mg PO BID [facility] Last Admin: 03/27/17 10:13 Dose: 3.125 mg Clonidine (Catapres) 0.1 mg PO Q4H PRN PRN Reason: Systolic BP > 180 Clonidine (Catapres) 0.1 mg PO BID [facility] Last Admin: 03/27/17 10:14 Dose: 0.1 mg Dextrose/Water (Dextrose 50%) 25 gm SLOW IVP PRN PRN PRN Reason: Hypoglycemia Diphenhydramine HCl (Benadryl) 25 mg IVP Q4H PRN PRN Reason: Itching AND HIVES Furosemide (Lasix) 20 mg PO 0900,1400 [facility] Glucagon (Glucagon) 1 mg IM PRN PRN PRN Reason: Hypoglycemia Hydralazine HCl (Apresoline) 10 mg SLOW IVP Q4H PRN PRN Reason: SBP Greater Than 170 Last Admin: 03/26/17 03:28 Dose: 10 mg Hydralazine HCl (Apresoline) 50 mg PO TID [facility] Last Admin: 03/27/17 16:31 Dose: 50 mg Dextrose/Water (D5w) 1,000 mls @ 0 mls/hr IV .Q0M PRN; As Directed PRN Reason: Hypoglycemia Insulin Human Regular (Humulin R) 0 units SC .MILD SLIDING SCALE PRN PRN Reason: Mild Correctional Scale Last Admin: 03/27/17 17:40 Dose: 6 unit Insulin Human Regular (Humulin R) 0 units SC .BEDTIME SLIDING SC PRN PRN Reason: Bedtime Correctional Scale Mycophenolate Mofetil (Cellcept) 500 mg PO BID [facility] Last Admin: 03/27/17 10:13 Dose: 500 mg Nifedipine (Procardia Xl) 90 mg PO DAILY [facility] Last Admin: 03/27/17 10:13 Dose: 90 mg (Insulin Degludec [ Tresiba Flextouch U- 100] 5 Unit) 5 unit SQ DAILY [facility] Last Admin: 03/27/17 16:32 Dose: 5 unit Ondansetron HCl (Zofran) 4 mg IVP Q6H PRN PRN Reason: Nausea/Vomiting Pantoprazole Sodium (Protonix) 40 mg PO DAILY [facility] Last Admin: 03/27/17 10:13 Dose: 40 mg Prednisone (Prednisone) 5 mg PO QAM-[facility] Last Admin: 03/27/17 10:13 Dose: 5 mg Tacrolimus (Prograf) 6 mg PO BID [facility] Last Admin: 03/27/17 10:14 Dose: 6 mg Trimethoprim/Sulfamethoxazole (Bactrim Ss) 1 tab PO MoWeFr@0900 [facility] Last Admin: 03/26/17 10:21 Dose: 1 tab
[2017-03-27] MEDS ORDERED: Docusate 100 MG CAP PO PRN (18:38)
[2017-03-27 21:37] LABS: Glucose Accucheck Confirmation 597 mg/dl (80-115)
[2017-03-28 06:11] LABS: Albumin 3.3 g/dL (3.4-4.8); Anion Gap 11 mmol/L (10-20); BUN (Urea Nitrogen) 38 mg/dL (8.4-25.7); BUN/Creatinine Ratio 26.76; Calc. Creatinine Clearance 42 mL/min (70-130); Calcium 8.9 mg/dL (7.8-10.44); Carbon Dioxide 27 mmol/L (23-31); Chloride 102 mmol/L (98-107); Estimated GFR-MDRD 49; Glucose 147 mg/dL (80-115); Magnesium 1.7 mg/dL (1.6-2.6); Phosphorus 3.6 mg/dL (2.3-4.7); Potassium 3.8 mmol/L (3.5-5.1); Sodium 136 mmol/L (136-145)
[2017-03-28] MEDS ORDERED: Furosemide 20 MG TAB PO SCH (09:00)
--- NOTE | 2017-03-28 09:06 | PRG ---
DATE OF SERVICE: 03/28/2017 SUBJECTIVE: Mr. Caldera is a 71-year-old white male status post cadaveric renal transplant admitted fo r shortness of breath. He underwent a thoracentesis. He has also been evaluated by Cardiology. The recommendation is eventually to taper down on the Lasix. His renal function remains stable. Please note the creatinine peaked at 1.99, it is now currently at 1.4. Denies any new complaints. No chest pain or shortness of breath. PHYSICAL EXAMINATION: VITAL SIGNS: Blood pressure is 129/60, heart rate 52, respiration 17, temperature 98.4, pulse ox 100 %. GENERAL: Noted to be awake, alert, comfortable, not in distress. SKIN: Adequate turgor. HEENT: He has slightly pale conjunctivae, anicteric sclerae. NECK: No neck mass, no carotid bruits, no JVD. CHEST: No deformities. LUNGS: Decreased breath sounds. HEART: Normal sinus rhythm. No murmur, no gallops, no rubs. ABDOMEN: Globular, soft, nontender. EXTREMITIES: No edema, no deformities. MEDICATIONS: 03/28/2017 - Reviewed. LABORATORIES: 03/27/2017 - White count 6.5, hemoglobin 8.4. Sodium 136, potassium 3.8, chloride 10 2, carbon dioxide 27, BUN 38, creatinine 1.42, glucose 147, calcium 8.9, phosphorus 3.6, magnesium 1. 7, albumin 3.3. ASSESSMENT AND PLAN: 1. Shortness of breath, multifactorial etiology. The patient is also status post thoracentesis. Cl inically, much improved. 2. Status post cadaveric renal transplant, stable renal function. Creatinine 1.42. He is near his baseline. Please note on admission he peaked with a creatinine of 1.9. Continue gentle diuresis. P lease note furosemide has been decreased to 20 mg tab b.i.d. 3. Status post cadaveric renal transplant. Continue immunosuppressive regimen. No changes will be made with his Prograf or CellCept.
[2017-03-28] MEDS: Mycophenolate 250 MG CAP PO SCH (09:10)
[2017-03-28] MEDS: Tacrolimus 1 MG CAP PO SCH (09:11)
[2017-03-28] MEDS: cloNIDine 0.1 MG TAB PO SCH (09:12)
[2017-03-28] MEDS: NIFEdipine XL 90 MG TAB PO SCH (09:12)
[2017-03-28] MEDS: predniSONE 5 MG TAB PO SCH (09:13)
[2017-03-28] MEDS: hydrALAZINE 25 MG TAB PO SCH (09:13)
[2017-03-28] MEDS: Carvedilol 3.125 MG TAB PO SCH (09:13)
[2017-03-28] MEDS: Calcium Carbonate + Vit D 1 TAB PO SCH (09:14)
[2017-03-28] MEDS: INSULIN DEGLUDEC 5 UNIT SQ SCH (09:15)
[2017-03-28] MEDS: Sulfameth/Trimethoprim SS 400-80MG TAB PO SCH (09:18)
[2017-03-28 12:51] VITALS: BP 145/65; TEMP 97.9
--- NOTE | 2017-03-28 17:49 | PDOC.CTH ---
Cardiology Progress Note - Subjective Diuresed about 5 more pounds overnight. He is feeling better. - Objective Vital Signs Temp Pulse Resp BP BP Pulse Ox 03/28/17 11:50 97.9 F 56 L 16 145/65 H 100 03/28/17 09:13 55 L 232/109 H 03/28/17 09:12 55 L 232/109 H 03/28/17 08:00 98.1 F 55 L 18 100 Admit Weight 140 lb 3.2 oz Weight 132 lb 1.6 oz 03/27/17 03/28/17 03/29/17 06:59 06:59 06:59 Intake Total 1005 1440 360 Output Total 2150 4600 Balance -1145 -3160 360 - Physical Examination General/Neuro: alert & oriented x3, NAD Lungs: unlabored respirations, other: (reduced breath sounds on right base. ) Heart: RRR Abdomen: NT/ND Extremities: other: (no edema.) - Telemetry Telemetry Rhythm: NSR - Labs Result Diagrams: 03/27/17 05:36 03/28/17 04:34 Troponin/CKMB CK-MB (CK-2) 4.3 ng/mL (0-6.6) 03/25/17 05:58 Troponin I 0.631 ng/mL (< 0.028) H* 03/25/17 14:47 - Assessment/Plan 1. Acute on chronic diastolic heart failure. 2. Moderate to severe MR 3. Healed aortic valve vegetation, moderate AI. 4. Bilateral pleural effusions, likley from heart failure. PLAN: - On PO lasix. - Will plan to do a fluid restriction of less than 2000 ml daily. - Lasix scheduled at 20 mg po BID every day and he will check his weight and will increase his lasix to 40 mg BID when his weight has increased by 3 pounds in 2 days. - May discharge home today. - BMP in 2 weeks. - Follow up in the office in 2 weeks.
--- NOTE | 2017-03-28 17:51 | DIS ---
DATE OF DISCHARGE: 03/28/2017 DISCHARGE DISPOSITION: Home. FOLLOWUP: Follow up with primary care physician, Dr. Fontanez in 1 week. Follow up with Cardiology, Dr. Schaffer and Nephrology, Dr. Kim as scheduled. ALLERGIES: The patient is allergic to AMLODIPINE, DOXAZOSIN and HYDRALAZINE. The patient was seen and examined on the day of discharge, denies any new complaints. Vital signs on the day of discharge showed temperature 97.9, blood pressure 145/65 with respiration of 16, pulse ra te 56, O2 saturation 100% on room air. Weight on the day of discharge is 132 pounds from 140 pounds on admission. DISCHARGE MEDICATIONS: Same as admission medications. 1. Tylenol as needed. 2. Tylenol #3 as needed. 3. Aspirin 81 mg as directed. 4. Calcitriol 0.5 mcg daily. 5. Tums as needed. 6. Carvedilol 3.125 mg b.i.d. 7. Clonidine 0.1 mg b.i.d. 8. Uloric 80 mg q.a.m. 9. Lasix 40 mg daily. 10. Hydralazine 50 mg 3 times daily. 11. Insulin degludec 5 units daily. 12. Insulin lispro as directed. 13. Isosorbide dinitrate 10 mg b.i.d. 14. CellCept 500 mg b.i.d. 15. Procardia-XL 90 mg daily. 16. Protonix 40 mg b.i.d. 17. Pravastatin 20 mg q.p.m. 18. Prednisone 5 mg daily. 19. vitamins daily. 20. Sodium bicarbonate 1300 mg b.i.d. 21. Bactrim as directed. 22. Tacrolimus as directed. INPATIENT CONSULTANTS: Pulmonary, Dr. Fontanez; Cardiology, Dr. Schaffer; Nephrology, Dr. Kim. INPATIENT PROCEDURES: On 03/26/2017, patient underwent thoracentesis draining approximately 600 mL o f pleural fluid from the right side. BRIEF HOSPITAL COURSE: The patient is a 71-year-old male with chronic diastolic heart failure, CKD s tage III, with renal transplant and coronary artery disease status post CABG, presented to the hospit al with shortness of breath. Please refer to the history and physical dated 03/25/[address] Em for further details. The patient was admitted to the hospital with the diagnosis of acute hypoxic respiratory failure due to acute on chronic diastolic heart failure exacerbation/pulmonary edema, requiring noninvasive posit mena pressure ventilation. He underwent thoracentesis as discussed above. He was also in hypertensiv e crisis that improved after diuresis. He appears stable for discharge and has been cleared by [facility] ology. FINAL DIAGNOSES: 1. Acute hypoxic respiratory failure secondary to acute on chronic diastolic heart failure/pulmonary edema, requiring noninvasive positive pressure ventilation. 2. Hypertensive crisis, resolved. 3. Right-sided pleural effusion, status post thoracentesis (transudate). 4. Recent aortic valve endocarditis, completed antibiotics. 5. Chronic kidney disease stage III. 6. History of renal transplant. 7. Coronary artery disease, status post coronary artery bypass grafting. 8. Elevated troponins secondary to demand ischemia. 9. Diabetes mellitus type 2. 10. Hyperlipidemia. 11. Former smoker. 12. Hypothyroidism. 13. Mild protein calorie malnutrition. 14. Abnormal liver function tests, probably secondary to passive hepatic congestion. 15. Chronic anemia secondary to renal insufficiency. SIGNIFICANT LABORATORIES: Creatinine on the day of discharge is 1.42 with BUN 38. AST on admission was 215 with ALT 185, alkaline phosphatase is 159. BNP 1374. Troponin 0.055. CBC showed WBC of 5.1 with hemoglobin 9.0. ABGs on admission showed pH 7.34 with a pCO2 of 39.9, pO2 of 107 on noninvasive positive pressure tamera tilation. Pleural fluid studies showed total protein of 1.0 with LDH 82, glucose of 181, pH of 7.33 with WBC of 18, RBC of 6240. Plan of care was discussed with the patient in detail. He stated understanding. Total time coordinating the discharge of this patient was approximately 35 minutes.
[2017-03-28 19:12] LABS: Tacrolimus 13.8 ng/mL (2.0-20.0)
--- NOTE | 2017-04-14 22:00 | EKG ---
Test Reason : Blood Pressure : / mmHG Vent. Rate : 067 BPM Atrial Rate : 067 BPM P-R Int : 162 ms QRS Dur : 088 ms QT Int : 440 ms P-R-T Axes : -09 021 125 degrees QTc Int : 464 ms Sinus rhythm with Premature supraventricular complexes Nonspecific ST and T wave abnormality Prolonged QT Abnormal ECG Confirmed by HALEY VYAS ([id number]), purchase request editor COLIN FRIAS ([id number]) on 04/14/2017 9:59:41 PM Referred By: Confirmed By:HALEY VYAS
== END 2017-03-28 14:17 | disposition home or self-care (01) | DRG 291 ==
LOC: ERS 05:06 → ERHOLD 08:26 → IMCU/EMU 23:27 → 2NO 03-26 13:17
PROVIDERS: ADMIT Hospitalist; ATTEND Hospitalist
PROC: 0W993ZZ Drainage of Right Pleural Cavity, Percutaneous Approach (ICD-10-PCS; principal; 2017-03-25)
PROC: 5A09357 Assistance with Respiratory Ventilation, Less than 24 Consecutive Hours, Continuous Positive Airway Pressure (ICD-10-PCS; 2017-03-25)
DX: I13.0 Hypertensive heart and chronic kidney disease with heart failure and stage 1 through stage 4 chronic kidney disease, or unspecified chronic kidney disease (principal); J96.01 Acute respiratory failure with hypoxia; N17.9 Acute kidney failure, unspecified; E11.22 Type 2 diabetes mellitus with diabetic chronic kidney disease; J91.8 Pleural effusion in other conditions classified elsewhere; N18.3 Chronic kidney disease, stage 3 (moderate); K76.1 Chronic passive congestion of liver; I50.33 Acute on chronic diastolic (congestive) heart failure; I24.8 Other forms of acute ischemic heart disease; E44.1 Mild protein-calorie malnutrition; Z94.0 Kidney transplant status; I16.0 Hypertensive urgency; I25.10 Atherosclerotic heart disease of native coronary artery without angina pectoris; Z95.1 Presence of aortocoronary bypass graft; Z87.891 Personal history of nicotine dependence; E03.9 Hypothyroidism, unspecified; Z68.20 Body mass index [BMI] 20.0-20.9, adult; D63.1 Anemia in chronic kidney disease; E78.00 Pure hypercholesterolemia, unspecified; Z79.899 Other long term (current) drug therapy; E21.2 Other hyperparathyroidism; I08.0 Rheumatic disorders of both mitral and aortic valves
CPT/HCPCS: 36415; 36416; 71045; 71046; 80048; 80053; 80069; 80076; 80197; 82553; 82805; 82945; 83615; 83735; 83880; 83986; 84157; 84439; 84443; 84481; 84484; 85025; 85060; 85610; 87070; 87116; 87205; 87206; 88112; 88305; 89051; 93005; 93306; 93798; 94660; 96365; 96372; 96375; 96376; J0360; J1644; J1650; J1815; J1940; J7507; J7517; J7620

== ENCOUNTER 2017-04-09 11:04 | Outpatient (CLI) | payer MEDICARE ==
--- NOTE | 2017-04-09 13:13 | RAD ---
PA AND LATERAL CHEST: HISTORY: Dyspnea. Follow up pleural effusions. COMPARISON: Recent exam of 03/27/2017. FINDINGS: Moderate sized right pleural effusion again noted with associated right basilar atelectasis and conso lidation. The size of this effusion and right basilar opacification does not appear significantly ch anged. The left lung remains clear. The heart size is normal. Postop sternotomy change. Aortic calcificat ion is prominent and is again noted. IMPRESSION: Moderate right effusion and right basilar opacification, which appears stable from 03/27/2017. POS: [facility]
== END 2017-04-09 11:05 | disposition home or self-care (01) ==
LOC: RAD 11:04
PROVIDERS: ATTEND Internal Medicine
DX: R06.00 Dyspnea, unspecified (principal); J90 Pleural effusion, not elsewhere classified; R91.8 Other nonspecific abnormal finding of lung field
CPT/HCPCS: 71046

== ENCOUNTER 2017-08-02 04:07 | Inpatient (IN) | payer MEDICARE ==
[2017-08-02] MEDS ORDERED: Nitroglycerin 0.4 MG TAB (25 Tab Bottle) ONE (04:15)
[2017-08-02 04:34] LABS: #Basophils 0.1 thou/uL (0.0-0.2); #Eosinphils 0.1 thou/uL (0.0-0.7); #Lymphocytes 3.5 thou/uL (1.20-3.40); #Monocytes 0.9 thou/uL (0.11-0.59); %Basophils 1.5 % (0.0-1.0); %Eosinophils 1.5 % (0.0-10.0); %Lymphocytes 36.2 % (21.0-51.0); %Monocytes 9.2 % (0.0-10.0); %Neutrophils 51.7 % (42.0-75.0); Hemoglobin 10.6 g/dL (14.0-18.0); Mean Corpuscular HGB CONC 32.4 g/dL (32.0-36.0); Mean Corpuscular Hemoglobin 30.3 pg (27.0-31.0); Mean Corpuscular Volume 93.6 fl (80.0-94.0); Mean Platelet Volume 8.2 fL (7.4-10.4); Platelet Count 268 thou/uL (130-400); RBC Distribution Width 14.8 % (11.5-14.5); White Blood Cell (WBC) Count 9.7 thou/uL (4.8-10.8)
[2017-08-02] MEDS ORDERED: Nitroglycerin 50 MG/250 ML BOT 250 ML ONE (04:35)
[2017-08-02 04:52] LABS: ALT (SGPT) 45 U/L (8-55); AST (SGOT) 34 U/L (5-34); Albumin 4.4 g/dL (3.4-4.8); Alkaline Phosphatase 137 U/L (40-150); Anion Gap 12 mmol/L (10-20); BUN (Urea Nitrogen) 31 mg/dL (8.4-25.7); Bilirubin, Total 0.5 mg/dL (0.2-1.2); CK (CPK) 116 U/L (30-200); Calc. Creatinine Clearance 0 mL/min (70-130); Calcium 9.2 mg/dL (7.8-10.44); Carbon Dioxide 22 mmol/L (23-31); Chloride 109 mmol/L (98-107); Estimated GFR-MDRD 40; Globulin 3.1 g/dL (2.4-3.5); Glucose 174 mg/dL (80-115); Potassium 4.9 mmol/L (3.5-5.1); Protein, Total 7.5 g/dL (5.8-8.1); Sodium 138 mmol/L (136-145)
[2017-08-02 04:56] LABS: CKMB 3.8 ng/mL (0-6.6); Troponin I 0.033 ng/mL (< 0.028)
[2017-08-02 05:02] LABS: Actual Bicarbonate (HCO3a) 21.2 mEq/L (22-26); CO2 Tension 40.9 mmHg (35.0-45.0); pH, Arterial 7.33 (7.35-7.45)
[2017-08-02 05:03] LABS: Base Excess (BEa) -4.3 mEq/L (0 (+/-) 2.5); Hematocrit-ABG 31.1 % (42.0-52.0); Hemoglobin (Hb) 9.5 g/dL (14.0-18.0)
[2017-08-02 05:04] LABS: ALV-art Gradient 506.875 (0-20); Analyzer IN Cardio ER; Calcium, Ionized 1.2 mmol/L (1.12-1.30); Puncture Site RRA
[2017-08-02] MEDS ORDERED: Furosemide 40 MG/4 ML VIAL ONE (05:07)
[2017-08-02 06:44] VITALS: BMI 19.4
[2017-08-02] MEDS ORDERED: Bisacodyl 10 MG SUPP PR PRN (06:54)
[2017-08-02] MEDS ORDERED: Dextrose 5% in Water 1,000 ML IV PRN (06:58)
[2017-08-02] MEDS ORDERED: Dextrose 50% Abboject 50 ML SYRINGE SLOW IVP PRN (06:58)
[2017-08-02 07:17] LABS: #Lymphocytes 0.8 thou/uL (1.20-3.40); #Monocytes 0.5 thou/uL (0.11-0.59); #Neutrophils 9.3 thou/uL (1.40-6.50); %Basophils 0.5 % (0.0-1.0); %Eosinophils 0.2 % (0.0-10.0); %Lymphocytes 7.3 % (21.0-51.0); %Monocytes 5.1 % (0.0-10.0); Hemoglobin 9.4 g/dL (14.0-18.0); Mean Corpuscular HGB CONC 32.1 g/dL (32.0-36.0); Mean Corpuscular Hemoglobin 29.9 pg (27.0-31.0); Mean Corpuscular Volume 93.2 fl (80.0-94.0); Mean Platelet Volume 7.9 fL (7.4-10.4); Platelet Count 209 thou/uL (130-400); RBC Distribution Width 14.7 % (11.5-14.5); Red Blood Cell (RBC) Count 3.12 mill/uL (4.70-6.10); White Blood Cell (WBC) Count 10.7 thou/uL (4.8-10.8)
[2017-08-02 07:32] LABS: Anion Gap 12 mmol/L (10-20); BUN (Urea Nitrogen) 32 mg/dL (8.4-25.7); Calc. Creatinine Clearance 39 mL/min (70-130); Calcium 8.5 mg/dL (7.8-10.44); Carbon Dioxide 20 mmol/L (23-31); Chloride 109 mmol/L (98-107); Estimated GFR-MDRD 44; Glucose 210 mg/dL (80-115); Potassium 4.7 mmol/L (3.5-5.1); Sodium 136 mmol/L (136-145)
[2017-08-02 07:39] LABS: Troponin I 0.112 ng/mL (< 0.028)
[2017-08-02] MEDS ORDERED: Famotidine/PF 20 mg/2ml Vial SLOW IVP SCH (09:00)
[2017-08-02] MEDS ORDERED: Pantoprazole 40 MG VIAL IVP SCH (09:00)
--- NOTE | 2017-08-02 09:24 | RAD ---
Single view of the chest: Comparison: 03-25-17 History: Shortness of breath. Chest pain. FINDINGS: Single view of the chest shows an enlarged cardiomediastinal silhouette with atherosclerotic calcific ations in the aorta. The patient is status post sternotomy. Diffuse increased interstitial markings a nd superimposed airspace opacities are seen. There is a moderate right pleural effusion. IMPRESSION: Stable exam. POS: [facility]
[2017-08-02] MEDS: Heparin 5,000 UNITS/ML VIAL SC SCH ×3 (09:38→21:24)
[2017-08-02] MEDS: Insulin Regular 300 UNITS/3 ML VIAL SC PRN ×2 (10:47→17:02)
[2017-08-02] MEDS ORDERED: Carvedilol 3.125 MG TAB PO SCH ×2 (11:31→12:30)
--- NOTE | 2017-08-02 12:20 | HP ---
PRIMARY CARE PHYSICIAN: Dr. Zabala. CHIEF COMPLAINT: Shortness of breath. HISTORY OF PRESENT ILLNESS: A 71-year-old male with known history of coronary artery disease status post CABG, prior episode of aortic valve endocarditis, renal transplant, who presents with a chief co mplaint of shortness of breath. Patient describes a prior similar event several months ago which he states was resolved quickly after receiving what sounds like a paracentesis. The patient wants to kn ow if that can be done this time again as well since he wants to be present at his granddaughter's [facility] this weekend on Sunday. Patient states 2 days ago, he is feeling "dehydrated" meaning more specifically that his mouth was ve ry dry and parched. Therefore, he cut his home Lasix dose in half. Over the subsequent 2 days up un til presentation, he notices significant and rapid amount of fluid retention and weight gain for him which is mostly abdominal and demonstrated by respiratory status issues. Patient denies any accompan rhonda fevers, chills, cough, chest pressure, palpitations or chest pain. REVIEW OF SYSTEMS: As per HPI. CONSTITUTIONAL: The patient reports subjective weight gain, but poole s not have documented weight. Denies any recent fevers or chills. HEENT: Denies headaches, vision changes, lightheadedness or dizziness. CARDIOVASCULAR: As per HPI. RESPIRATORY: As per HPI. KIANA ROINTESTINAL: Denies any nausea, vomiting, abdominal pain, diarrhea or constipation. GENITOURINARY: Denies any new issues of dysuria, change in urinary frequency, color or quantity. MUSCULOSKELETAL: No new myalgias or arthralgias over the last 2 days. Remainder of the review of systems is otherwi se negative. PAST MEDICAL HISTORY: As per HPI and includes the followin. Status post kidney transplant with cadaveric kidney, prior to that peritoneal dialysis. 2. History of coronary artery disease status post CABG. 3. 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 4. Hypertension. 5. Hyperlipidemia. 6. Type 2 diabetes. 7. Hypothyroidism. 8. Status post AV fistula placement section. HOME MEDICATIONS: Please see the EMR for full details. Current list is unconfirmed, but includes th e following: Prednisone, hydralazine, clonidine, tacrolimus, Bactrim, sodium bicarbonate, v itamins, pravastatin, pantoprazole, nifedipine, mycophenolate, isosorbide dinitrate, insulin, lispro, insulin degludec, furosemide, febuxostat, carvedilol, calcium carbonate, calcitriol, aspirin, acetam inophen with codeine and acetaminophen extra strength. ALLERGIES: Include AMLODIPINE, DOXAZOSIN, which causes stomach ache and hydralazine. Unless otherwi se noted, no described reaction. FAMILY HISTORY: Denies any known family history of stroke, heart failure or coronary artery disease with pulmonary edema. PHYSICAL EXAMINATION: GENERAL: The patient is awake, alert and conversant. Has a nonrebreather mask on, appears to be a r easonable historian. HEENT: Normocephalic, atraumatic. Slightly dry mucous membranes. Extraocular motions are intact. CARDIOVASCULAR: S1, S2. Prominent systolic murmur heard over the left sternal border. Pulses 2+ bi lateral upper extremity, 1+ bilateral pitting pedal edema. ABDOMEN: Positive bowel sounds, soft, and nontender to palpation. MUSCULOSKELETAL: Moving all 4 extremities on command. LABORATORY DATA AND IMAGING DATA: WBC 10.7, hemoglobin 9.4, hematocrit 29.1, platelets 209. ABG sig nificant for pH of 7.33, pCO2 of 40.9, and pO2 of 150. Sodium 136, potassium 4.7, chloride 109, bica rbonate 20, BUN 32, creatinine 1.57, glucose 210, calcium 8.5, AST 34, ALT 45, alkaline phosphatase 1 37. Creatinine kinase 116. Initial troponin 0.112, BNP 1482, total protein 7.5, albumin 4.4. On , chest x-ray indicates "single view of the chest shows an enlarged cardiomediastinal silhoue tte with atherosclerotic calcifications in the aorta." The patient is status post sternotomy. Diffu se increased interstitial markings and superimposed airspace opacities are seen. There is a moderate right pleural effusion. ASSESSMENT AND PLAN: A 71-year-old male who presents with a chief complaint of shortness of breath. 1. Shortness of breath. The patient describes a 2-day progressive history with timing that coincide s with self decrease of his home diuretic dosing. Patient's image and history along with physical ex am seems to suggest a component of congestive heart failure. The patient also is presenting with hyp ertensive urgency with systolic blood pressures over the 200s in the emergency department. In the em ergency department, patient has been placed on a nitroglycerin drip and given one dose of Lasix 40 mg IV. We will continue the patient on the nitroglycerin drips while his home medications are verified and then resume his home antihypertensive medication. Meanwhile, we will diurese with Lasix 40 mg I V b.i.d. with close attention to electrolytes and renal function. The patient currently states he fe els improved in the ER after these interventions. We will consult the patient's director alliance marketing, Dr. Radha borges and senior design engineering specialist, Dr. Fontanez. Discussed with the patient that at this point in time we would start with medical management and he could discuss his desire for a followup thoracentesis if it is s till warranted after initial management. In the meantime, supplemental oxygenation support. 2. History of renal transplant, he is currently on an immunosuppressive regimen. We will continue w ith the patient's immunosuppressive regimen at this point in time. Patient is without fever or other signs or symptoms consistent with infection; however, would have a very low threshold to cover for b oth opportunistic, atypical organisms if the suspicion of infection arises. Patient appears to also be on PCP prophylaxis, Bactrim as well. We will continue this for the time being. 3. Elevated troponin likely related to the above. 4. We will continue to trend and closely monitor. It appears there was an echocardiogram completed most recently in our hospital record on 03/2017 demonstrating EF of 60-65% with grade II diastolic dy sfunction, moderate to severe mitral regurgitation with healed vegetation seen on the sclerotic aorti c valve. Also noted a large pleural effusion on the echocardiogram. 5. Hypertensive urgency. Please see the discussion above regarding antihypertensive regimen. This could also be causative in the patient's presentation as well. 6. Diet: Renal, cardiac. 7. Activity: As tolerated. 8. Deep venous thrombosis prophylaxis with heparin given slightly increased BUN and creatinine. 9. Acute renal injury. We will need to closely monitor renal function as patient is being actively diuresed. 10. Code status: The patient and his discussed code status at bedside, at this point in time, he wishes to be FULL CODE. Thank you for asking me to care for the patient.
[2017-08-02] MEDS ORDERED: cloNIDine 0.2 MG TAB PO SCH (12:30)
[2017-08-02] MEDS ORDERED: NIFEdipine XL 90 MG TAB PO SCH (12:30)
--- NOTE | 2017-08-02 13:23 | CON ---
DATE OF CONSULTATION: 08/02/2017 CARDIOLOGY CONSULTATION REASON FOR CONSULTATION: Heart failure. HISTORY OF PRESENT ILLNESS: Mr. Caldera is a very pleasant 71-year-old white gentleman who comes to [facility] for shortness of breath and he was at home and was woken up at about 02:30 a.m. with short ness of breath and sweating. He came into the hospital and was found to be in florid pulmonary edema and with hypertensive emergency. He was given Lasix for fluid, making his breathing much better now and he was started on nitroglycerin drip. Blood pressure is down to the 170s. He states he is 90% better now. He is only requiring a Ventimask now for oxygenation supplementation. He has known delmy nary artery disease with 3-vessel bypass about 2 or 3 years ago. He also underwent kidney transplant at the same time. He has had other admissions, the last one was in March of this year for diastol ic heart failure. His blood pressure medications were switched and he has been coming to his outpati ent followups fairly regularly. Last time, his blood pressure was still somewhat of a labile and we had switched his hydralazine to 50 in the morning, 100 in the noon and 50 in the evening and we maint ained the rest of his medications. He also had an admission back in January, which is the first [facility] when we met where he was found to have an MRSA bacteremia from a foot infection. He was found to h ave a small vegetation on his aortic valve found on transesophageal echo that was treated medically w ith antibiotics. Eventually, he had a repeat echo that showed a healed vegetation with just moderate AI. PAST MEDICAL HISTORY: 1. Type 2 diabetes. 2. End-stage renal disease on hemodialysis, subsequently undergoing kidney transplantation. This wa s about 2 years ago. 3. Hypertension. 4. Hyperlipidemia. 5. Gastroesophageal reflux disease. 6. Coronary artery bypass grafting x3. 7. Anemia of chronic disease. 8. Hyperuricemia. 9. Hyperparathyroidism. 10. Chronic deconditioning. PAST SURGICAL HISTORY: 1. CABG x3. 2. Dialysis shunt, left upper extremity. 3. Peritoneal dialysis. 4. Bilateral cataract surgery. 5. Bilateral shoulder surgery. 6. Back surgery. 7. Left thumb surgery. 8. Kidney transplantation. SOCIAL HISTORY: Quit smoking in 2015. No alcohol or drug use. FAMILY HISTORY: Noncontributory. OUTPATIENT MEDICATIONS: Reviewed and include, 1. Tylenol with codeine. 2. Aspirin 81 a day. 3. Tums. 4. Multivitamin. 5. Uloric. 6. Lasix 40 mg a day. 7. Coreg 3.125 b.i.d. 8. Humalog. 9. Tresiba. 10. CellCept 2 capsules p.o. b.i.d. 11. Isosorbide dinitrate 10 mg p.o. b.i.d. 12. Pantoprazole 40 mg b.i.d. 13. Nifedipine 90 mg a day. 14. Sodium bicarbonate. 15. Pravastatin 20 mg q.p.m. 16. Clonidine 0.1 mg p.o. b.i.d. 17. Tacrolimus b.i.d. 18. Prednisone 5 mg a day. 19. Hydralazine 50 mg in the morning, 100 in the noon and 50 in the evening. ALLERGIES: 1. AMLODIPINE. 2. DOXAZOSIN. 3. HYDRALAZINE, although he is taking this without problems now. Supposedly, his feet and legs woul d swell in the past, but recently he has been tolerating it without issues. REVIEW OF SYSTEMS: A 12-point review of systems was done, is otherwise negative unless stated in the history of present illness. PHYSICAL EXAMINATION: VITAL SIGNS: Temperature 97.5, pulse 60, respiration rate 20, he is satting 100% on nonrebreather, b lood pressure was 202/68, more recently 178/72. GENERAL: Awake, alert, oriented x3, in no distress. HEENT: Normocephalic, atraumatic. NECK: Supple. LUNGS: Have mild crackles at bilateral bases. CARDIOVASCULAR: S1, S2. No S3 or S4. There is a grade 3/6 systolic murmur at the right upper ryan al border. ABDOMEN: Soft. Positive bowel sounds. EXTREMITIES: No edema. SKIN: Warm and dry. LABORATORY WORK: Reviewed. CBC is unremarkable. ABG was unremarkable. Chemistry was reviewed. Cr eatinine 1.7, down to 1.5 after diuresis. Troponin was 0.03, 0.11. BNP was 1482. EKG was reviewed. ASSESSMENT: 1. Flash pulmonary edema. 2. Acute on chronic diastolic heart failure. 3. Hypertensive emergency. 4. Type 2 diabetes. 5. Kidney transplant status. 6. Coronary artery disease, stable at this time, status post coronary artery bypass grafting x3, 2-3 years ago. PLAN: 1. Continue the nitroprusside drip. We will discontinue nitroglycerin drip. We will restart all hi s home medications and we will wean the nitroprusside drip once his home blood pressure medications s tarted to kick in. Try to keep the blood pressure less than 160. We will use p.r.n. hydralazine or p.r.n. clonidine to lower this number. 2. We will get a repeat echocardiogram to make sure that his aortic valve remains just moderate. He also has [id number] mitral regurgitation, which may be contributing to all this. Thank you for letting us participate in the care of your patient. We will follow. More than 30 minutes of bedside critical care were delivered.
[2017-08-02] MEDS: Nitroglycerin 2% Ointment 1 INCH/1 GM Packet TOP SCH ×2 (13:28→19:16)
[2017-08-02] MEDS: NIFEdipine XL 90 MG TAB PO SCH (13:31)
[2017-08-02] MEDS ORDERED: Furosemide 40 MG/4 ML VIAL SLOW IVP SCH (14:00)
--- NOTE | 2017-08-02 14:11 | PDOC.EVN ---
Event Note - Event Note Event Note: Pt seen and examined. chart,labs etc reviewed.care discussed w Pt, and nursing NAD,AAOX3, CTA b/l RRR Agree w H&P.will try to wean off drips now.retsrat all home meds . cont IV lasix w strict I/os. Arielley flash Pulm edema form HTN urgency. HD stable. will follow
--- NOTE | 2017-08-02 14:58 | CON ---
DATE OF CONSULTATION: 08/02/2017 RENAL MEDICINE HISTORY OF PRESENT ILLNESS: Mr. Caldera is a 71-year-old white male with known history of ESRD - statu s post renal transplant and were now being consulted for his management of his post-transplanted kidn tesfaye. He was admitted for shortness of breath secondary to congestive heart failure. This morning, he is already feeling better. His shortness of breath has actually improved. 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 In the recent past, t he patient has decreased his Lasix due to the fact that he has been having cramping episodes. He was supposed to take Lasix 40 mg tab once a day, but went down to 20 mg tab every other day. REVIEW OF SYSTEMS: Positive for shortness of breath, no chest pain or syncopal episode, no nausea, n o vomiting, no diarrhea, no productive cough, no fever or chills. No dysuria, no diarrhea, no consti pation, no headache, no chest pain. Appetite and energy level is fair. No hematochezia, no sore thr oat. PAST MEDICAL HISTORY: Includes the following; 1. Status post ESRD. 2. CHF. 3. Status post infective endocarditis. 4. Hypouricemia. 5. Tertiary hyperparathyroidism. 6. Type 2 diabetes mellitus. 7. Hyperlipidemia. 8. Coronary artery disease. PAST SURGICAL HISTORY: 1. Status post cadaveric renal transplant. 2. Status post cardiac catheterization. 3. Status post CABG. 4. Status post bilateral shoulder surgery. 5. Status post hand and back surgery. 6. Status post PD catheter placement. 7. Status post cuffed hemodialysis catheter placement. 8. Status post AV fistula placement. SOCIAL HISTORY: The patient is and lives in [place]. Sedentary lifestyle. Smoked f or 30 years, one pack a day, currently not smoking. Status post blood transfusion. No alcohol intak e. ALLERGIES: DOXAZOSIN and AMLODIPINE. TRAUMA: None. IMMUNIZATIONS: Up to date. HOSPITALIZATIONS: Please see past medical history. FAMILY HISTORY: No family history of ESRD. PHYSICAL EXAMINATION: VITAL SIGNS: Blood pressure is ranging from 198/67 to 202/68 - before BP meds. Heart rate 68, respi ratory rate 20, temperature 97.8, pulse ox 100%. GENERAL: Awake, supine, comfortable, not in distress. SKIN: Adequate turgor. HEENT: He has pinkish conjunctivae, anicteric sclerae. NECK: No neck mass, no carotid bruits, no JVD. LUNGS: Bibasilar crackles. HEART: Normal sinus rhythm. No murmurs, no gallops, no rubs. ABDOMEN: Globular, soft, nontender, no masses. Renal allograft, nontender. EXTREMITIES: No edema, no deformities. MEDICATIONS: Medications of 08/02/2017; Lasix 40 mg IV q.12 hours, heparin 5000 units subcutaneous t .i.d., Protonix 40 mg IV q.a.m. Currently on sodium nitroprusside drip to titrate BP. HOME MEDICATIONS: Includes the following; prednisone 5 mg daily, hydralazine 50 mg p.o. t.i.d., clon idine 0.1 mg p.o. b.i.d., tacrolimus 0.5 mg p.o. b.i.d., Bactrim single strength 1 tab daily, sodium bicarbonate 650 mg 2 tabs b.i.d., mycophenolate 250 mg - 2 tabs p.o. b.i.d., Isordil 10 mg p.o. b.i.d ., Uloric 80 mg q.a.m., calcitriol 1 tab 0.25 mcg tab daily, nifedipine ER 90 mg daily, pravastatin 2 0 mg tab at bedtime. ASSESSMENT AND PLAN: 1. Status post renal transplant - patient's renal function is relatively stable. The most recent cr eatinine is noted at 1.57 and earlier this was 1.7. Previous creatinine has fluctuated in the past w ith this patient. His last creatinine in March was 1.24. The slightly higher creatinine may just simply reflect prerenal condition secondary to congestive heart failure. I would continue with the c urrent diuretics with this patient. In addition, I would suggest we would continue with his current immunosuppressive regimen. 2. Congestive heart failure - chest x-ray shows congestive heart failure. We will continue IV diure tics. Adjust as needed. 3. Hypertension. Resume current blood pressure medications with this patient. Overall, agree with current management. Recheck base met and CBC in a.m.
[2017-08-02] MEDS ORDERED: hydrALAZINE 25 MG TAB PO SCH (15:00)
[2017-08-02] MEDS: hydrALAZINE 25 MG TAB PO SCH ×2 (15:06→21:17)
[2017-08-02] MEDS ORDERED: Carvedilol 6.25 MG TAB PO SCH (17:30)
--- NOTE | 2017-08-02 20:44 | CON ---
DATE OF CONSULTATION: 08/02/2017 SERVICE: Pulmonary Medicine. REASON FOR CONSULTATION: Respiratory failure. HISTORY OF PRESENT ILLNESS: The patient is a 71-year-old white male with past medical history significant for chronic right-sided pleural effusion. He also has a chronic diastolic heart failure. He was in his usual state of health yesterday. He was very productive. He cut the lawn, did multiple other activities. He was drinking plenty of fluids throughout the day because he is doing some outdoor activities. 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 He is very eager to get out of the hospital as soon as possible if we can arrange for it. Either way, he went to bed in his usual state of health, but woke up abruptly short of breath. He had difficult time breathing. He is gasping and choking. He was not moving any air. The emergency services arrived at his house and brought him to the emergency department. As soon as he got the oxygen on him, he felt much improved. He currently denies any chest pain, nausea, vomiting, fevers or chills. He is not coughing up any sputum with color to it. PAST MEDICAL HISTORY: 1. History of renal transplant. 2. Coronary artery disease, status post coronary artery bypass graft. 3. Endocarditis of the aortic valve, status post antibiotics. 4. Hypertension. 5. Dyslipidemia. 6. Type 2 diabetes mellitus. 7. Hypothyroidism. PAST SURGICAL HISTORY: 1. AV fistula placement. 2. Kidney transplant surgery. ALLERGIES: AMLODIPINE, DOXAZOSIN, HYDRALAZINE. HOME MEDICATIONS: List of his inpatient medications was reviewed. I also looked at his outpatient medications and we are going to get him back on his antirejection and blood pressure medications. REVIEW OF SYSTEMS: General, head, ears, eyes, nose, throat, cardiovascular, respiratory, GI, , musculoskeletal, neurologic and skin is negative except as mentioned in the HPI. FAMILY HISTORY: Noncontributory. SOCIAL HISTORY: Negative for alcohol, tobacco, or illicit drug use. He has no exposure to chemicals, asbestos or tuberculosis. PHYSICAL EXAMINATION: VITAL SIGNS: Afebrile, pulse 68, blood pressure 137/57, respirations 28, saturation 100% on nonrebreather. GENERAL: The patient is awake, alert, no apparent distress. LUNGS: Decent air entry bilaterally. Crackles are present. No prolonged expiratory phase or wheezing appreciated. HEART: Normal rate, regular. ABDOMEN: Soft, nontender, nondistended. Bowel sounds are positive. MUSCULOSKELETAL: No cyanosis or clubbing. No pitting in the bilateral lower extremities. NEUROLOGIC: Grossly nonfocal. LABORATORY DATA: WBC 10.7, hemoglobin 9.4, platelets 209,000. A pH 7.33, pCO2 of 41, pO2 of 150. Creatinine down trending to 1.57, BUN 32. Basic metabolic profile is otherwise unremarkable. Troponin is up trending to 0.112, BNP 1482 which is an historical high for him in our system. IMAGING: Chest x-ray demonstrates bilateral pleural effusions. The right is greater than the left. Cephalization and pulmonary edema are also noted. There is an enlarged cardiac silhouette. ASSESSMENT: 1. Acute hypoxic respiratory failure. 2. Right-sided pleural effusion, chronic with a history of thoracentesis demonstrating a transudate with trapped lung. 3. Acute on chronic diastolic heart failure. 4. Chronic kidney disease with history of kidney transplant. PLAN: We will continue his Prograf, CellCept, and prednisone. I will start up his nifedipine, Coreg, and clonidine. He is being diuresed to euvolemia. I will check a Prograf level in the morning. Pulmonary Critical Care will continue to follow along while the patient remains in this location. We will try to get him off the nonrebreather on to a Ventimask. If he tolerates this transition and stable over a couple of hours, we can likely consider transitioning him to the telemetry unit. 70 minutes have been devoted to this patient in various activities. I personally reviewed all imaging studies and laboratory data noted within this document. For fifty percent of this time, I was interacting with the patient at the bedside or coordinating care with the care team. For the remainder of the time I was immediately available to the patient in the hospital unit. BRENDA
[2017-08-02] MEDS: Tacrolimus 1 MG CAP PO SCH (21:16)
[2017-08-02] MEDS: Mycophenolate 250 MG CAP PO SCH (21:16)
[2017-08-02] MEDS: cloNIDine 0.2 MG TAB PO SCH (21:17)
[2017-08-02] MEDS: Sodium Bicarbonate Tab 325 MG TAB PO SCH (21:18)
[2017-08-02] MEDS: Isosorbide Dinitrate 5 MG TAB PO SCH (21:18)
[2017-08-02] MEDS: Aspirin 81 mg Enteric Coated Tablet PO SCH (21:19)
[2017-08-02] MEDS: Pravastatin Sodium 20 MG TAB PO SCH (21:19)
[2017-08-03] MEDS: hydrALAZINE 20 MG/ML VIAL SLOW IVP PRN ×3 (03:20→23:34)
[2017-08-03] MEDS: Nitroglycerin 2% Ointment 1 INCH/1 GM Packet TOP SCH ×3 (03:21→12:07)
[2017-08-03 04:13] LABS: #Basophils 0.1 thou/uL (0.0-0.2); #Eosinphils 0.1 thou/uL (0.0-0.7); #Lymphocytes 1.4 thou/uL (1.20-3.40); #Monocytes 0.8 thou/uL (0.11-0.59); #Neutrophils 5.6 thou/uL (1.40-6.50); %Basophils 0.7 % (0.0-1.0); %Eosinophils 1.1 % (0.0-10.0); %Lymphocytes 17.3 % (21.0-51.0); %Monocytes 10.4 % (0.0-10.0); %Neutrophils 70.6 % (42.0-75.0); Hemoglobin 8.8 g/dL (14.0-18.0); Mean Corpuscular HGB CONC 31.9 g/dL (32.0-36.0); Mean Corpuscular Hemoglobin 29.6 pg (27.0-31.0); Mean Corpuscular Volume 92.6 fl (80.0-94.0); Mean Platelet Volume 8.2 fL (7.4-10.4); Platelet Count 187 thou/uL (130-400); RBC Distribution Width 14.7 % (11.5-14.5); Red Blood Cell (RBC) Count 2.96 mill/uL (4.70-6.10)
[2017-08-03 04:30] LABS: Anion Gap 10 mmol/L (10-20); BUN (Urea Nitrogen) 35 mg/dL (8.4-25.7); Calc. Creatinine Clearance 43 mL/min (70-130); Calcium 8.5 mg/dL (7.8-10.44); Carbon Dioxide 22 mmol/L (23-31); Chloride 109 mmol/L (98-107); Estimated GFR-MDRD 50; Glucose 80 mg/dL (80-115); Potassium 4.5 mmol/L (3.5-5.1); Sodium 136 mmol/L (136-145)
[2017-08-03] MEDS: cloNIDine 0.2 MG TAB PO SCH ×2 (08:46→20:30)
[2017-08-03] MEDS: Carvedilol 6.25 MG TAB PO SCH ×2 (08:46→17:11)
[2017-08-03] MEDS: predniSONE 5 MG TAB PO SCH (08:47)
[2017-08-03] MEDS: Sodium Bicarbonate Tab 325 MG TAB PO SCH ×2 (08:47→20:30)
[2017-08-03] MEDS: hydrALAZINE 25 MG TAB PO SCH ×3 (08:47→20:29)
[2017-08-03] MEDS: Heparin 5,000 UNITS/ML VIAL SC SCH ×3 (08:51→20:31)
[2017-08-03] MEDS: Furosemide 40 MG/4 ML VIAL SLOW IVP SCH (08:51)
[2017-08-03] MEDS: Mycophenolate 250 MG CAP PO SCH ×2 (08:52→20:29)
[2017-08-03] MEDS: TRESIBA (INSULIN DEGLUDEC) SC SCH (08:57)
[2017-08-03] MEDS: ULORIC 80 MG PO SCH (08:58)
[2017-08-03] MEDS: Isosorbide Dinitrate 5 MG TAB PO SCH ×2 (09:06→20:30)
[2017-08-03] MEDS: NIFEdipine XL 90 MG TAB PO SCH (09:06)
[2017-08-03] MEDS: Insulin Regular 300 UNITS/3 ML VIAL SC PRN ×3 (10:56→22:01)
[2017-08-03] MEDS: Tacrolimus 1 MG CAP PO SCH ×2 (10:57→20:31)
--- NOTE | 2017-08-03 13:55 | PDOC.PN ---
- Subjective Encounter Start Date: 08/03/17 Encounter Start Time: 13:53 Subjective: feels better.breathing easier.off of oxygen -: no chest pain -: labs reviewed - Objective Resuscitation Status: Resuscitation Status FULL:Full Resuscitation MAR Reviewed: Yes Vital Signs & Weight: Vital Signs (12 hours) Temp Pulse Resp BP Pulse Ox 08/03/17 12:00 97.9 F 08/03/17 09:06 64 185/60 H 08/03/17 08:47 64 182/59 H 08/03/17 08:46 183/61 H 08/03/17 08:00 98.2 F 64 23 H 98 08/03/17 07:00 98 F 08/03/17 05:34 64 183/61 H 08/03/17 04:00 98.0 F 08/03/17 03:20 61 183/61 H Weight Weight 135 lb 8 oz Most Recent Monitor Data Heart Rate from ECG 53 NIBP 145/52 NIBP BP-Mean 110 Respiration from ECG 32 SpO2 100 I&O: 08/02/17 08/03/17 08/04/17 06:59 06:59 06:59 Intake Total 1789 450 Output Total 2775 900 Balance -986 -450 Result Diagrams: 08/03/17 03:22 08/03/17 03:22 Additional Labs: Accuchecks 08/03/17 08/03/17 08/02/17 10:56 05:37 20:46 POC Glucose 269 H 106 153 H 08/02/17 17:03 POC Glucose 395 H EKG Reviewed by me: Yes (NSR on monitor) Phys Exam - Physical Examination Constitutional: NAD sitting up in chair HEENT: PERRLA, moist MMs, sclera anicteric, oral pharynx no lesions Neck: no nodes, no JVD, supple, full ROM Respiratory: no wheezing, no rales, no rhonchi, clear to auscultation bilateral Cardiovascular: RRR, no significant murmur, no rub Gastrointestinal: soft, non-tender, no distention, positive bowel sounds Musculoskeletal: no edema, pulses present Neurological: non-focal, normal sensation, moves all 4 limbs Psychiatric: normal affect, A&O x 3 Skin: no rash Dx/Plan (1) Hypertensive urgency Code(s): I16.0 - HYPERTENSIVE URGENCY Status: Acute (2) Acute respiratory failure with hypoxia Code(s): J96.01 - ACUTE RESPIRATORY FAILURE WITH HYPOXIA Status: Acute (3) Flash pulmonary edema Code(s): J81.0 - ACUTE PULMONARY EDEMA Status: Acute (4) MONTRELL (acute kidney injury) Code(s): N17.9 - ACUTE KIDNEY FAILURE, UNSPECIFIED Status: Acute (5) Chronic diastolic CHF (congestive heart failure) Code(s): I50.32 - CHRONIC DIASTOLIC (CONGESTIVE) HEART FAILURE Status: Acute (6) Anemia of renal disease Code(s): D63.1 - ANEMIA IN CHRONIC KIDNEY DISEASE Status: Chronic (7) CAD (coronary artery disease) Code(s): I25.10 - ATHSCL HEART DISEASE OF [place] CORONARY ARTERY W/O ANG PCTRS Status: Chronic Qualifiers: Coronary Disease-Associated Artery/Lesion type: bypass graft [place] vs. transplanted heart: [place] heart Associated angina: without angina Qualified Code(s): I25.810 - Atherosclerosis of coronary artery bypass graft(s) without angina pectoris (8) DM type 2 (diabetes mellitus, type 2) Status: Chronic Qualifiers: Diabetes mellitus long-term insulin use: without terminal system operator use Diabetes mellitus complication status: with kidney complications Diabetes mellitus complication detail: with chronic kidney disease Chronic kidney disease stage : stage 2 (mild) Qualified Code(s): E11.22 - Type 2 diabetes mellitus with diabetic chronic kidney disease; N18.2 - Chronic kidney disease, stage 2 (mild) ; N18.2 - Chronic kidney disease, stage 2 (mild) (9) Dyslipidemia Code(s): E78.5 - HYPERLIPIDEMIA, UNSPECIFIED Status: Chronic (10) H/O kidney transplant Status: Chronic Comment: is on prograf, cellcept and prednisone (11) Secondary hyperparathyroidism of renal origin Code(s): N25.81 - SECONDARY HYPERPARATHYROIDISM OF RENAL ORIGIN Status: Chronic - Plan PT/OT, respiratory therapy, incentive spirometry, out of bed/ambulate, DVT proph w/SCDs cont diuresis.clinically improved.Flash pulm edema d/t uncontrolled HTN -: cont home meds as below. including immunosuppressants. -: repeat ECHO ordered.follow results -: appreciate cardiology,PCCM & Nephrology input. -: renal Fx improved.monitor * .cont ISS,Tresiba.Monitor blood sugar * BP better now.Off of nay drip.OK to transfer to [facility] * Sintia FERNANDEZ home early tomorrow morning . * am labs Review of Systems - Review of Systems Constitutional: weakness. negative: fever, chills, sweats, malaise, other Respiratory: negative: Cough, Dry, Shortness of Breath, Hemoptysis, SOB with Excertion, Pleuritic Pain, Sputum, Wheezing Cardiovascular: negative: chest pain, palpitations, orthopnea, paroxysmal nocturnal dyspnea, edema, light headedness, other Gastrointestinal: negative: Nausea, Vomiting, Abdominal Pain, Diarrhea, Constipation, Melena, Hematochezia, Other Genitourinary: negative: Dysuria, Frequency, Incontinence, Hematuria, Retention , Other Musculoskeletal: negative: Neck Pain, Shoulder Pain, Arm Pain, Back Pain, Hand Pain, Leg Pain, Foot Pain, Other Skin: negative: Rash, Lesions, Kade, Bruising, Other Neurological: negative: Weakness, Numbness, Incoordination, Change in Speech, Confusion, Seizures, Other - Medications/Allergies Allergies/Adverse Reactions: Allergies Allergy/AdvReac Type Severity Reaction Status Date / Time amlodipine AdvReac Verified 02/03/17 23:26 doxazosin AdvReac Stomach Verified 02/03/17 23:26 Ache hydralazine AdvReac Verified 02/03/17 23:26 Medications: Current Medications Aspirin (Ecotrin) 81 mg PO SuTuThSa@2100 [facility] Last Admin: 08/02/17 21:19 Dose: 81 mg Bisacodyl (Dulcolax) 10 mg NH Q24H PRN PRN Reason: Constipation Carvedilol (Coreg) 6.25 mg PO BID-WM [facility] Last Admin: 08/03/17 08:46 Dose: 6.25 mg Clonidine (Catapres) 0.1 mg PO Q4H PRN PRN Reason: sbp>160 Clonidine (Catapres) 0.2 mg PO BID [facility] Last Admin: 08/03/17 08:46 Dose: 0.2 mg Dextrose/Water (Dextrose 50%) 25 gm SLOW IVP PRN PRN PRN Reason: Hypoglycemia Furosemide (Lasix) 40 mg SLOW IVP 0900 [facility] Last Admin: 08/03/17 08:51 Dose: 40 mg Glucagon (Glucagon) 1 mg IM PRN PRN PRN Reason: Hypoglycemia Heparin Sodium (Porcine) (Heparin) 5,000 units SC TID [facility] Last Admin: 08/03/17 08:51 Dose: 5,000 units Hydralazine HCl (Apresoline) 10 mg SLOW IVP Q15MIN PRN PRN Reason: SBP>170 Last Admin: 08/03/17 05:34 Dose: 10 mg Hydralazine HCl (Apresoline) 50 mg PO TID [facility] Last Admin: 08/03/17 08:47 Dose: 50 mg Sodium Nitroprusside 50 mg/ (Dextrose/Water) 252 mls @ 0 mls/hr IVPB INF YARED; Titrate PRN Reason: Protocol Last Admin: 08/02/17 14:04 Dose: 252 mls Dextrose/Water (D5w) 1,000 mls @ 0 mls/hr IV .Q0M PRN; As Directed PRN Reason: Hypoglycemia Insulin Human Regular (Humulin R) 0 units SC .MODERATE SLIDING SC PRN PRN Reason: Moderate Correctional Scale Last Admin: 08/03/17 10:56 Dose: 6 unit Isosorbide Dinitrate (Isordil) 10 mg PO BID [facility] Last Admin: 08/03/17 09:06 Dose: 10 mg Mycophenolate Mofetil (Cellcept) 500 mg PO BID [facility] Last Admin: 08/03/17 08:52 Dose: 500 mg Nifedipine (Procardia Xl) 90 mg PO DAILY [facility] Last Admin: 08/03/17 09:06 Dose: 90 mg Pantoprazole Sodium (Protonix) 40 mg PO QAM [facility] Last Admin: 08/03/17 09:12 Dose: 40 mg Uloric 80 Mg Tab 1 each PO DAILY [facility] Last Admin: 08/03/17 08:58 Dose: 1 each Tresiba (Insulin (Degludec)) 0 each SC DAILY [facility] Last Admin: 08/03/17 08:57 Dose: 1 each Pravastatin Sodium (Pravachol) 20 mg PO QPM [facility] Last Admin: 08/02/17 21:19 Dose: 20 mg Prednisone (Prednisone) 5 mg PO DAILY [facility] Last Admin: 08/03/17 08:47 Dose: 5 mg Multivit/Folic Acid/Iron ( Vitamin) 1 tab PO QPM [facility] Sodium Bicarbonate (Bicarbonate, Sodium) 650 mg PO BID [facility] Last Admin: 08/03/17 08:47 Dose: 650 mg Tacrolimus (Prograf) 6 mg PO BID [facility] Last Admin: 08/03/17 10:57 Dose: 6 mg
--- NOTE | 2017-08-03 14:04 | PRG ---
DATE OF SERVICE: 08/03/2017 SERVICE: Pulmonary Medicine. INTERVAL HISTORY: The patient is doing fantastic from a respiratory standpoint. He denies any current chest pain, nausea, vomiting, fevers or chills. Otherwise, there has been no interval change to his condition. He feels like his breathing is back to baseline. He is interested in getting out of here as soon as possible. He has a fairly big event that is happening this weekend and wants to be there for it. That being said, the acute things that brought him to the hospital have come to close, assuming that we get his blood pressure under control. He is a little anxious because he has missed 2 doses of his blood pressure medication already. He typically takes 5:00 medications for blood pressure as well as 7:00 medications for blood pressure. All of these medications are being delivered to him at 9:00 a.m. this morning. PHYSICAL EXAMINATION: VITAL SIGNS: Afebrile, pulse 53, blood pressure 145/52, respirations 32, saturation 100% on room air. GENERAL: The patient is awake and alert, in no apparent distress. LUNGS: Excellent air entry without prolonged expiratory phase, wheezing, rhonchi or crackles. HEART: Normal rate, regular. ABDOMEN: Soft, nontender, nondistended. Bowel sounds are positive. MUSCULOSKELETAL: No cyanosis or clubbing. No pitting in the bilateral lower extremities. NEUROLOGIC: Grossly nonfocal. LABORATORY DATA: WBC 8.0, hemoglobin 8.8, platelets 187,000. Creatinine 1.40 and down trending, BUN 35, bicarbonate 22, which is improved. Chloride 109, sodium 136, stable. ASSESSMENT: 1. Acute hypoxic respiratory failure. 2. Right-sided pleural effusion, chronic. 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 3. Acute on chronic diastolic heart failure. 4. Chronic kidney disease with history of kidney transplant. 5. Obstructive sleep apnea, suspected. DISCUSSION AND PLAN: From my perspective, the patient is stable for transition out of the hospital. Pulmonary Critical Care will continue to follow along this location. That being said, when he lands on the floor, we will sign off. In the outpatient setting, we will pursue a polysomnogram looking into obstructive sleep apnea. BRENDA
--- NOTE | 2017-08-03 16:31 | PDOC.CTH ---
Cardiology Progress Note - Subjective The pt seen and examined. No overnight events. No cardiac complaints. He stated he can breath better. The pt is hesitant to f/u with CHF clinic. He was up to chair all this AM without any cardiac complaints. - Objective Vital Signs Temp Pulse Resp BP Pulse Ox 08/03/17 15:13 64 185/60 H 08/03/17 12:00 97.9 F 08/03/17 09:06 64 185/60 H 08/03/17 08:47 64 182/59 H 08/03/17 08:46 183/61 H 08/03/17 08:00 98.2 F 64 23 H 98 08/03/17 07:00 98 F 08/03/17 05:34 64 183/61 H Weight 135 lb 8 oz 08/02/17 08/03/17 08/04/17 06:59 06:59 06:59 Intake Total 1789 650 Output Total 2775 1400 Balance -986 -750 - Physical Examination General/Neuro: alert & oriented x3 Neck: no JVD present Lungs: CTA (diminished at bases) Heart: RRR Abdomen: soft Extremities: other: (No edema) - Telemetry Telemetry Rhythm: SB 50s; asymptomatic - Labs Result Diagrams: 08/03/17 03:22 08/03/17 03:22 Troponin/CKMB CK-MB (CK-2) 3.8 ng/mL (0-6.6) 08/02/17 04:26 Troponin I 0.112 ng/mL (< 0.028) H 08/02/17 07:05 - Assessment/Plan 1. Flash Pulm. edema - stable with Lasix 40mg IV daily; cont. to monitor; Echo result is pending 2. Acute on Chronic diastolic HF - stable with Lasix 40mg IV daily and Coreg 6.25mg BID; not on KATY/ARE due to CKD; cont. to monitor 3. Hypertensive urgency - stable with Coreg 6.25mg BID, Clonidine 0.2mg BID and PRN; 4. CAD with S/p CABG x3 a few years ago - stable; on ASA QOD, Statin, and BBlocker; cont. monitor on tele 5. DM type 2 - managed by PCP 6. Hx of Kidney tx - on prograf, cellcept and prednisone; managed by PCP 7. Dyslipidemia - on Statin 8. Chronic Anemia - MAR reviewed Review of Systems - Review of Systems Constitutional: reports: no symptoms reported EENTM: reports: no symptoms reported Respiratory: reports: no symptoms reported Cardiac (ROS): reports: no symptoms reported ABD/GI: reports: no symptoms reported : reports: no symptoms reported Musculoskeletal: reports: no symptoms reported Skin: reports: no symptoms reported
[2017-08-03] MEDS: Prenatal Vitamin 1 TAB PO SCH (20:30)
[2017-08-03] MEDS: Pravastatin Sodium 20 MG TAB PO SCH (20:30)
--- NOTE | 2017-08-03 21:55 | PRG ---
DATE OF SERVICE: 08/03/2017 SUBJECTIVE: The patient was seen and examined today in the ICU, he is now feeling better, noted with the following vital signs. PHYSICAL EXAMINATION: VITAL SIGNS: Afebrile with temperature 97.9, pulse 64, respiratory rate of 20, blood pressure 183/61 , O2 sat of 98%. HEENT: Unremarkable with moist oral mucosa. No conjunctival injection or icterus. NECK: Supple. CARDIOVASCULAR: First and second heart sounds were heard. RESPIRATORY: Clear to auscultation anteriorly. DIGESTIVE: Revealed a benign abdomen. EXTREMITIES: Show no significant peripheral edema. SKIN: No new gross rash. LABORATORY INVESTIGATIONS: Showed a creatinine of 1.4, BUN of 35. 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 2. Flash pulmonary edema, query cause. 3. Congestive heart failure. PLAN: 1. We will continue with current regimen of diuresis. The patient would be better with b.i.d. dosin g of loop diuretic as opposed to one time a day dosing. 2. Management to be dependent on the clinical course.
[2017-08-04] MEDS: cloNIDine 0.1 MG TAB PO PRN (02:15)
[2017-08-04] MEDS: hydrALAZINE 20 MG/ML VIAL SLOW IVP PRN ×3 (03:42→16:53)
[2017-08-04 05:01] LABS: Anion Gap 7 mmol/L (10-20); BUN (Urea Nitrogen) 40 mg/dL (8.4-25.7); Calc. Creatinine Clearance 48 mL/min (70-130); Calcium 8.4 mg/dL (7.8-10.44); Carbon Dioxide 24 mmol/L (23-31); Chloride 108 mmol/L (98-107); Estimated GFR-MDRD 57; Glucose 81 mg/dL (80-115); Potassium 4.3 mmol/L (3.5-5.1); Sodium 135 mmol/L (136-145)
[2017-08-04] MEDS ORDERED: Nitroglycerin 0.4 MG TAB (25 Tab Bottle) SL SCH (06:15)
[2017-08-04] MEDS ORDERED: Nitroglycerin 2% Ointment 1 INCH/1 GM Packet TOP SCH (06:15)
[2017-08-04] MEDS: hydrALAZINE 25 MG TAB PO SCH ×3 (08:14→20:51)
[2017-08-04] MEDS: Furosemide 40 MG/4 ML VIAL SLOW IVP SCH (08:16)
[2017-08-04] MEDS: predniSONE 5 MG TAB PO SCH (08:34)
[2017-08-04] MEDS: cloNIDine 0.2 MG TAB PO SCH ×2 (08:34→14:53)
[2017-08-04] MEDS: Sodium Bicarbonate Tab 325 MG TAB PO SCH ×2 (08:34→20:52)
[2017-08-04] MEDS: ULORIC 80 MG PO SCH (08:35)
[2017-08-04] MEDS: Mycophenolate 250 MG CAP PO SCH ×2 (08:35→20:53)
[2017-08-04] MEDS: Tacrolimus 1 MG CAP PO SCH ×2 (08:36→20:53)
--- NOTE | 2017-08-04 08:46 | PDOC.CTH ---
<Lilian Haas - Last Filed: 08/04/17 08:28> Cardiology Progress Note - Subjective The pt seen and examined. His BP was up to 190-200 last night. HR was down to 45 while he was sleeping. He reported that he has to take deep breath for SOB this AM. - Objective Vital Signs Temp Pulse BP 08/04/17 08:14 50 L 205/60 H 08/04/17 08:00 98.6 F 08/04/17 05:00 99.1 F 08/04/17 04:18 187/51 H 08/04/17 03:42 197/54 H 08/04/17 02:15 176/53 H 08/04/17 00:00 99.1 F 08/03/17 23:34 176/53 H 08/03/17 20:30 149/60 H 08/03/17 20:29 149/60 H Weight 135 lb 8 oz 08/03/17 08/04/17 08/05/17 06:59 06:59 06:59 Intake Total 1789 1270 0 Output Total 2775 2800 0 Balance -986 -1530 0 - Physical Examination General/Neuro: alert & oriented x3 Neck: no JVD present Lungs: other: (diminished at bases; Rt>Lt) Heart: RRR Abdomen: soft Extremities: other: (no edema) - Telemetry Telemetry Rhythm: SB 45-50s - Labs Result Diagrams: 08/03/17 03:22 08/04/17 04:22 Troponin/CKMB CK-MB (CK-2) 3.8 ng/mL (0-6.6) 08/02/17 04:26 Troponin I 0.112 ng/mL (< 0.028) H 08/02/17 07:05 - Assessment/Plan 1. Flash Pulm. edema - stable with Lasix 40mg IV daily; cont. to monitor; Echo on 08/03/17 showed EF 60-65%, mod MR, mild-mod AR, mild TR, and mild MT. 2. Acute on Chronic diastolic HF - stable with Lasix 40mg IV daily. Decrease Coreg from 6.25mg to 3.125mg BID for Bradycardia; not on KATY/ARE due to CKD; cont. to monitor 3. Hypertensive urgency - Decrease Coreg from 6.25mg to 3.125mg BID for Bradycardia; Increase Isosorbide to 20mg BID and change Clonidine 0.2mg in AM and 0.3mg PM; cont. to monitor 4. CAD with S/p CABG x3 a few years ago - stable; on ASA QOD, Statin, and BBlocker; cont. monitor on tele 5. DM type 2 - managed by PCP 6. Hx of Kidney tx - on prograf, cellcept and prednisone; managed by PCP 7. Dyslipidemia - on Statin 8. Chronic Anemia - MAR reviewed Review of Systems - Review of Systems Constitutional: reports: no symptoms reported EENTM: reports: no symptoms reported Respiratory: reports: see HPI Cardiac (ROS): reports: no symptoms reported ABD/GI: reports: no symptoms reported : reports: no symptoms reported Musculoskeletal: reports: no symptoms reported <Gonzalez Horne - Last Filed: 08/04/17 11:01> Cardiology Progress Note - Objective Vital Signs Temp Pulse BP 08/04/17 08:34 205/60 H 08/04/17 08:14 50 L 205/60 H 08/04/17 08:00 98.6 F 08/04/17 05:00 99.1 F 08/04/17 04:18 187/51 H 08/04/17 03:42 197/54 H 08/04/17 02:15 176/53 H 08/04/17 00:00 99.1 F 08/03/17 23:34 176/53 H Weight 135 lb 8 oz 08/03/17 08/04/17 08/05/17 06:59 06:59 06:59 Intake Total 1789 1270 180 Output Total 2775 2800 500 Balance -986 -1530 -320 - Labs Result Diagrams: 08/03/17 03:22 08/04/17 04:22 Troponin/CKMB CK-MB (CK-2) 3.8 ng/mL (0-6.6) 08/02/17 04:26 Troponin I 0.112 ng/mL (< 0.028) H 08/02/17 07:05 - Assessment/Plan Pt. seen and eval. by me. I agree with the A/P by the [employer]. BP is difficult to control. Managed with nephrology. The HR has also been low this AM , as low as 30-40's. Coreg has joyce decreased. Chest clear. Sinus arlene with regular rhythm.
[2017-08-04] MEDS: Heparin 5,000 UNITS/ML VIAL SC SCH ×3 (09:18→20:53)
[2017-08-04] MEDS: TRESIBA (INSULIN DEGLUDEC) SC SCH (09:28)
[2017-08-04] MEDS: Isosorbide Dinitrate 20 MG TAB PO SCH ×2 (11:12→20:52)
--- NOTE | 2017-08-04 11:19 | PRG ---
DATE OF SERVICE: 08/04/2017 SUBJECTIVE: The patient is doing well and has no acute complaints. Nursing staff says that there is a big discrepancy between blood pressure measured in his arm and blood pressure measured in his leg. Right now, he is off all IV blood pressure medications. PHYSICAL EXAMINATION: VITAL SIGNS: On exam, his temperature is 98.6, pulse 52, blood pressure 123/52 in his right leg, O2 sat 100%. HEENT: Unremarkable. NECK: Without adenopathy or JVD. CHEST: Fairly clear without wheezing or rhonchi. He has diminished breath sounds in both bases. CARDIAC: S1 and S2 regular with a 2/6 systolic murmur. ABDOMEN: Soft and nontender. EXTREMITIES: No clubbing, cyanosis, or edema. LABORATORY DATA: Sodium 135, potassium 4.3, chloride 108, CO2 of 24, BUN 40, creatinine 1.2, glucose 81. ASSESSMENT: 1. Acute hypoxic respiratory failure. 2. Right-sided pleural effusion that is transudative and thought secondary to diastolic heart dysfun ction. 3. Malignant hypertension. 4. Chronic kidney disease. 5. Obstructive sleep apnea, suspected. PLAN: From a pulmonary standpoint, he can be transferred to the floor. He may need further workup r egarding the discrepancy in his blood pressures between arms and legs.
[2017-08-04] MEDS: Insulin Regular 300 UNITS/3 ML VIAL SC PRN ×3 (11:52→21:00)
[2017-08-04] MEDS: NIFEdipine XL 90 MG TAB PO SCH (14:49)
--- NOTE | 2017-08-04 15:05 | PDOC.PN ---
- Subjective Encounter Start Date: 08/04/17 Encounter Start Time: 10:35 Subjective: feels better, no chest pain or sob - Objective Resuscitation Status: Resuscitation Status FULL:Full Resuscitation MAR Reviewed: Yes Vital Signs & Weight: Vital Signs (12 hours) Temp Pulse Resp BP Pulse Ox 08/04/17 14:54 52 L 195/41 H 08/04/17 14:53 205/60 H 08/04/17 14:49 52 L 195/41 H 08/04/17 12:00 97.8 F 08/04/17 08:34 205/60 H 08/04/17 08:14 50 L 205/60 H 08/04/17 08:00 98.6 F 50 L 16 97 08/04/17 05:00 99.1 F 08/04/17 04:18 187/51 H 08/04/17 03:42 197/54 H Weight Weight 135 lb 8 oz Most Recent Monitor Data Heart Rate from ECG 51 NIBP 195/41 NIBP BP-Mean 110 Respiration from ECG 26 SpO2 100 I&O: 08/03/17 08/04/17 08/05/17 06:59 06:59 06:59 Intake Total 1789 1270 520 Output Total 2775 2800 1200 [facility] -[phone] -1530 -680 Result Diagrams: 08/03/17 03:22 08/04/17 04:22 Additional Labs: Accuchecks 08/04/17 08/04/17 08/03/17 11:48 06:19 20:28 POC Glucose 182 H 97 244 H 08/03/17 17:16 POC Glucose 204 H Phys Exam - Physical Examination HEENT: PERRLA, moist MMs Neck: no JVD, supple Respiratory: no wheezing, no rales Cardiovascular: RRR, no significant murmur murmur+ Gastrointestinal: soft, non-tender, positive bowel sounds Musculoskeletal: no edema, pulses present Neurological: non-focal, moves all 4 limbs Psychiatric: normal affect, A&O x 3 Dx/Plan (1) Acute respiratory failure with hypoxia Code(s): J96.01 - ACUTE RESPIRATORY FAILURE WITH HYPOXIA Status: Resolved (2) Chronic diastolic CHF (congestive heart failure) Code(s): I50.32 - CHRONIC DIASTOLIC (CONGESTIVE) HEART FAILURE Status: Acute (3) Flash pulmonary edema Code(s): J81.0 - ACUTE PULMONARY EDEMA Status: Resolved (4) Anemia of renal disease Code(s): D63.1 - ANEMIA IN CHRONIC KIDNEY DISEASE Status: Chronic (5) CAD (coronary artery disease) Code(s): I25.10 - ATHSCL HEART DISEASE OF [place] CORONARY ARTERY W/O ANG PCTRS Status: Chronic Qualifiers: Coronary Disease-Associated Artery/Lesion type: bypass graft [place] vs. transplanted heart: [place] heart Associated angina: without angina Qualified Code(s): I25.810 - Atherosclerosis of coronary artery bypass graft(s) without angina pectoris (6) DM type 2 (diabetes mellitus, type 2) Status: Chronic Qualifiers: Diabetes mellitus watermelon inspector insulin use: without fci use Diabetes mellitus complication status: with kidney complications Diabetes mellitus complication detail: with chronic kidney disease Chronic kidney disease stage : stage 2 (mild) Qualified Code(s): E11.22 - Type 2 diabetes mellitus with diabetic chronic kidney disease; N18.2 - Chronic kidney disease, stage 2 (mild) ; N18.2 - Chronic kidney disease, stage 2 (mild) (7) Dyslipidemia Code(s): E78.5 - HYPERLIPIDEMIA, UNSPECIFIED Status: Chronic (8) H/O kidney transplant Status: Chronic Comment: is on prograf, cellcept and prednisone - Plan on coreg, clonidine, hydralazine and lasix iv -: isordil bid, procardia xl and pravachol -: on prograf 6mg bid, cellcept 500mg bid and 5mg prednisone for Tx -: ef of 60% with mod mitral and pulm regurg -: will need judicious use of contrast if he needs CT angio * . Likely has arteriosclerosis and calcium deposition with kidney disease and unclear if he has other vasc issues to cause discrepancy in BP will obtain usg to r/o AAA Review of Systems - Medications/Allergies Allergies/Adverse Reactions: Allergies Allergy/AdvReac Type Severity Reaction Status Date / Time amlodipine AdvReac Verified 02/03/17 23:26 doxazosin AdvReac Stomach Verified 02/03/17 23:26 Ache hydralazine AdvReac Verified 02/03/17 23:26 Medications: Current Medications Aspirin (Ecotrin) 81 mg PO SuTuThSa@2100 YARED Last Admin: 08/02/17 21:19 Dose: 81 mg Bisacodyl (Dulcolax) 10 mg [place] Q24H PRN PRN Reason: Constipation Carvedilol (Coreg) 3.125 mg PO BID-WM [facility] Clonidine (Catapres) 0.1 mg PO Q4H PRN PRN Reason: sbp>160 Last Admin: 08/04/17 02:15 Dose: 0.1 mg Clonidine (Catapres) 0.3 mg PO HS Y[facility] Clonidine (Catapres) 0.2 mg PO 0900 [facility] Last Admin: 08/04/17 14:53 Dose: Not Given Dextrose/Water (Dextrose 50%) 25 gm SLOW IVP PRN PRN PRN Reason: Hypoglycemia Furosemide (Lasix) 40 mg SLOW IVP 0900 [facility] Last Admin: 08/04/17 08:16 Dose: 40 mg Glucagon (Glucagon) 1 mg IM PRN PRN PRN Reason: Hypoglycemia Heparin Sodium (Porcine) (Heparin) 5,000 units SC TID [facility] Last Admin: 08/04/17 14:57 Dose: 5,000 units Hydralazine HCl (Apresoline) 10 mg SLOW IVP Q15MIN PRN PRN Reason: SBP>170 Last Admin: 08/04/17 04:18 Dose: 10 mg Hydralazine HCl (Apresoline) 50 mg PO TID [facility] Last Admin: 08/04/17 14:54 Dose: 50 mg Sodium Nitroprusside 50 mg/ (Dextrose/Water) 252 mls @ 0 mls/hr IVPB INF YARED; Titrate PRN Reason: Protocol Last Admin: 08/02/17 14:04 Dose: 252 mls Dextrose/Water (D5w) 1,000 mls @ 0 mls/hr IV .Q0M PRN; As Directed PRN Reason: Hypoglycemia Insulin Human Regular (Humulin R) 0 units SC .MODERATE SLIDING SC PRN PRN Reason: Moderate Correctional Scale Last Admin: 08/04/17 11:52 Dose: 2 unit Insulin Human Regular (Humulin R) 0 units SC .BEDTIME SLIDING SC PRN; Protocol PRN Reason: BEDTIME SLIDING SCALE Last Admin: 08/03/17 22:01 Dose: 2 unit Isosorbide Dinitrate (Isordil) 20 mg PO BID [facility] Last Admin: 08/04/17 11:12 Dose: 20 mg Mycophenolate Mofetil (Cellcept) 500 mg PO BID [facility] Last Admin: 08/04/17 08:35 Dose: 500 mg Nifedipine (Procardia Xl) 90 mg PO DAILY [facility] Last Admin: 08/04/17 14:49 Dose: 90 mg Pantoprazole Sodium (Protonix) 40 mg PO QAM [facility] Last Admin: 08/04/17 08:34 Dose: 40 mg Uloric 80 Mg Tab 1 each PO DAILY [facility] Last Admin: 08/04/17 08:35 Dose: 1 each Tresiba (Insulin (Degludec)) 0 each SC DAILY [facility] Last Admin: 08/04/17 09:28 Dose: 1 each Pravastatin Sodium (Pravachol) 20 mg PO QPM [facility] Last Admin: 08/03/17 20:30 Dose: 20 mg Prednisone (Prednisone) 5 mg PO DAILY [facility] Last Admin: 08/04/17 08:34 Dose: 5 mg Multivit/Folic Acid/Iron ( Vitamin) 1 tab PO QPM [facility] Last Admin: 08/03/17 20:30 Dose: 1 tab Sodium Bicarbonate (Bicarbonate, Sodium) 650 mg PO BID [facility] Last Admin: 08/04/17 08:34 Dose: 650 mg Tacrolimus (Prograf) 6 mg PO BID [facility] Last Admin: 08/04/17 08:36 Dose: 6 mg
--- NOTE | 2017-08-04 16:00 | EKG ---
Test Reason : Blood Pressure : / mmHG Vent. Rate : 097 BPM Atrial Rate : 097 BPM P-R Int : 222 ms QRS Dur : 084 ms QT Int : 346 ms P-R-T Axes : 076 045 127 degrees QTc Int : 439 ms Sinus rhythm with 1st degree A-V block Nonspecific ST and T wave abnormality Abnormal ECG Confirmed by DEJON JUDGE ([id number]), assignment desk editor KARISHMA FLOYD ([id number]) on 08/04/2017 4:00:32 PM Referred By: ALFIE Confirmed By:DEJON JUDGE
[2017-08-04] MEDS ORDERED: Carvedilol 3.125 MG TAB PO SCH (17:00)
--- NOTE | 2017-08-04 18:39 | ULT ---
ABDOMINAL ULTRASOUND: 08/04/17 HISTORY: Abdominal aortic aneurysm and abdominal pain. Multiple longitudinal and transverse images of the abdominal aorta is obtained using a multihertz cur vilinear transducer. Real time, color flow and spectral waveform doppler analysis used to evaluate th e abdominal aorta. The abdominal aorta has a diameter of approximately 1.5 cm in the proximal portion . The mid and distal aspect not visualized due to overlying bowel gas. IMPRESSION: Suboptimal exam due to abdominal bowel gas. The proximal portion of the abdominal aorta is unremarkab le. The distal portion not visualized. POS: TAHMINA
[2017-08-04] MEDS: Carvedilol 3.125 MG TAB PO SCH (19:39)
[2017-08-04] MEDS: Carvedilol 6.25 MG TAB PO SCH (19:40)
[2017-08-04] MEDS: Prenatal Vitamin 1 TAB PO SCH (20:52)
[2017-08-04] MEDS: Pravastatin Sodium 20 MG TAB PO SCH (20:52)
[2017-08-04] MEDS: Aspirin 81 mg Enteric Coated Tablet PO SCH (20:53)
[2017-08-04] MEDS ORDERED: cloNIDine 0.3 MG TAB PO SCH (21:00)
[2017-08-05] MEDS: hydrALAZINE 20 MG/ML VIAL SLOW IVP PRN ×3 (03:08→17:20)
[2017-08-05] MEDS: cloNIDine 0.1 MG TAB PO PRN (03:08)
--- NOTE | 2017-08-05 08:05 | PRG ---
DATE OF SERVICE: 08/05/2017 SUBJECTIVE: The patient feels well and wants to go home. He had no complaints today. PHYSICAL EXAMINATION: VITAL SIGNS: On exam, his pulse has been running in the 40s-50s, temperature 99.0, blood pressure 18 7/55, O2 sat 100%. HEENT: Unremarkable. NECK: Without adenopathy or JVD. LUNGS: Clear without wheezing or rhonchi. CARDIAC: S1 and S2, regular. ABDOMEN: Soft. EXTREMITIES: No edema. LABORATORY DATA: No labs were done today. ASSESSMENT: 1. Acute hypoxic respiratory failure, which has resolved. 2. Right-sided pleural effusion, which is transudative and thought secondary to diastolic heart dysf unction. 3. Malignant hypertension. 4. Chronic kidney disease. 5. Obstructive sleep apnea is suspected. PLAN: He will get a sleep apnea workup as an outpatient from Dr. Fontanez. He is holding for transfe r to the floor, as there are no beds. He is continuing evaluation and workup of his hypertension by Cardiology.
[2017-08-05 08:18] LABS: #Basophils 0.1 thou/uL (0.0-0.2); #Lymphocytes 1.3 thou/uL (1.20-3.40); #Monocytes 0.6 thou/uL (0.11-0.59); #Neutrophils 3.8 thou/uL (1.40-6.50); %Eosinophils 0.7 % (0.0-10.0); %Lymphocytes 22.2 % (21.0-51.0); %Monocytes 10.1 % (0.0-10.0); %Neutrophils 65.9 % (42.0-75.0); Hemoglobin 8.5 g/dL (14.0-18.0); Mean Corpuscular HGB CONC 32.1 g/dL (32.0-36.0); Mean Corpuscular Volume 93.4 fl (80.0-94.0); Mean Platelet Volume 8.2 fL (7.4-10.4); Platelet Count 203 thou/uL (130-400); RBC Distribution Width 14.5 % (11.5-14.5); Red Blood Cell (RBC) Count 2.84 mill/uL (4.70-6.10); White Blood Cell (WBC) Count 5.7 thou/uL (4.8-10.8)
[2017-08-05] MEDS: Carvedilol 3.125 MG TAB PO SCH ×2 (08:24→17:38)
[2017-08-05] MEDS: hydrALAZINE 25 MG TAB PO SCH ×3 (08:25→21:41)
[2017-08-05] MEDS: predniSONE 5 MG TAB PO SCH (08:26)
[2017-08-05] MEDS: cloNIDine 0.2 MG TAB PO SCH (08:27)
[2017-08-05] MEDS: Sodium Bicarbonate Tab 325 MG TAB PO SCH (08:27)
[2017-08-05] MEDS: ULORIC 80 MG PO SCH (08:28)
[2017-08-05] MEDS: Mycophenolate 250 MG CAP PO SCH ×2 (08:29→21:42)
[2017-08-05] MEDS: TRESIBA (INSULIN DEGLUDEC) SC SCH (08:30)
[2017-08-05] MEDS: Heparin 5,000 UNITS/ML VIAL SC SCH ×3 (08:33→21:44)
[2017-08-05 08:37] LABS: Anion Gap 10 mmol/L (10-20); BUN (Urea Nitrogen) 43 mg/dL (8.4-25.7); Calc. Creatinine Clearance 42 mL/min (70-130); Calcium 8.7 mg/dL (7.8-10.44); Carbon Dioxide 25 mmol/L (23-31); Chloride 107 mmol/L (98-107); Estimated GFR-MDRD 48; Glucose 118 mg/dL (80-115); Potassium 4.4 mmol/L (3.5-5.1); Sodium 138 mmol/L (136-145)
[2017-08-05] MEDS: Isosorbide Dinitrate 20 MG TAB PO SCH ×2 (08:40→21:48)
[2017-08-05] MEDS ORDERED: INSULIN GLARGINE SC SCH (09:00)
[2017-08-05] MEDS ORDERED: INSULIN DEGLUDEC 5 UNIT SQ SCH (09:00)
[2017-08-05] MEDS: Tacrolimus 1 MG CAP PO SCH ×2 (10:13→22:01)
[2017-08-05] MEDS ORDERED: Furosemide 40 MG TAB PO SCH ×2 (11:00→21:00)
[2017-08-05] MEDS: Insulin Regular 300 UNITS/3 ML VIAL SC PRN ×3 (11:57→22:14)
--- NOTE | 2017-08-05 12:09 | PDOC.PN ---
- Subjective Encounter Start Date: 08/05/17 Encounter Start Time: 11:50 Subjective: is sitting in chair, wants to go home - Objective Resuscitation Status: Resuscitation Status FULL:Full Resuscitation MAR Reviewed: Yes Vital Signs & Weight: Vital Signs (12 hours) Temp Pulse Resp BP Pulse Ox 08/05/17 12:00 97.5 F L 08/05/17 09:16 100 08/05/17 08:27 186/61 H 08/05/17 08:25 50 L 186/61 H 08/05/17 08:00 97.7 F 08/05/17 07:40 97.7 F 47 L 18 100 08/05/17 06:35 182/58 H 08/05/17 04:00 99.0 F 08/05/17 03:08 182/58 H Weight Weight 135 lb 8 oz Most Recent Monitor Data Heart Rate from ECG 48 NIBP 171/48 NIBP BP-Mean 112 Respiration from ECG 26 SpO2 100 I&O: 08/04/17 08/05/17 08/06/17 06:59 06:59 06:59 Intake Total 1270 750 380 Output Total 2800 2700 50 Balance -1530 -1950 330 Result Diagrams: 08/05/17 08:09 08/05/17 08:09 Additional Labs: Accuchecks 08/05/17 08/05/17 08/04/17 11:52 06:10 21:01 POC Glucose 252 H 117 H 325 H 08/04/17 08/04/17 17:14 11:48 POC Glucose 245 H 182 H Phys Exam - Physical Examination HEENT: PERRLA, moist MMs Neck: no JVD, supple Respiratory: no wheezing, no rales Cardiovascular: RRR, no significant murmur Gastrointestinal: soft, non-tender, positive bowel sounds Musculoskeletal: no edema, pulses present Neurological: non-focal, moves all 4 limbs Psychiatric: normal affect, A&O x 3 Dx/Plan (1) Acute respiratory failure with hypoxia Code(s): J96.01 - ACUTE RESPIRATORY FAILURE WITH HYPOXIA Status: Resolved (2) Chronic diastolic CHF (congestive heart failure) Code(s): I50.32 - CHRONIC DIASTOLIC (CONGESTIVE) HEART FAILURE Status: Acute (3) Flash pulmonary edema Code(s): J81.0 - ACUTE PULMONARY EDEMA Status: Resolved (4) Anemia of renal disease Code(s): D63.1 - ANEMIA IN CHRONIC KIDNEY DISEASE Status: Chronic (5) CAD (coronary artery disease) Code(s): I25.10 - ATHSCL HEART DISEASE OF [place] CORONARY ARTERY W/O ANG PCTRS Status: Chronic Qualifiers: Coronary Disease-Associated Artery/Lesion type: bypass graft [place] vs. transplanted heart: [place] heart Associated angina: without angina Qualified Code(s): I25.810 - Atherosclerosis of coronary artery bypass graft(s) without angina pectoris (6) DM type 2 (diabetes mellitus, type 2) Status: Chronic Qualifiers: Diabetes mellitus fdc insulin use: without fdc use Diabetes mellitus complication status: with kidney complications Diabetes mellitus complication detail: with chronic kidney disease Chronic kidney disease stage : stage 2 (mild) Qualified Code(s): E11.22 - Type 2 diabetes mellitus with diabetic chronic kidney disease; N18.2 - Chronic kidney disease, stage 2 (mild) ; N18.2 - Chronic kidney disease, stage 2 (mild) (7) Dyslipidemia Code(s): E78.5 - HYPERLIPIDEMIA, UNSPECIFIED Status: Chronic (8) H/O kidney transplant Status: Chronic Comment: is on prograf, cellcept and prednisone - Plan hemostable -: hr around 40-50's, suggest dc clonidine -: continue procardia, coreg, hydralazine and lasix -: home meds for dm -: further cardiovasc w/u per cardio advice * . Review of Systems - Medications/Allergies Allergies/Adverse Reactions: Allergies Allergy/AdvReac Type Severity Reaction Status Date / Time amlodipine AdvReac Verified 02/03/17 23:26 doxazosin AdvReac Stomach Verified 02/03/17 23:26 Ache hydralazine AdvReac Verified 02/03/17 23:26 Medications: Current Medications Aspirin (Ecotrin) 81 mg PO SuTuThSa@2100 [facility] Last Admin: 08/04/17 20:53 Dose: 81 mg Bisacodyl (Dulcolax) 10 mg [place] Q24H PRN PRN Reason: Constipation Carvedilol (Coreg) 3.125 mg PO BID-WM [facility] Last Admin: 08/05/17 08:24 Dose: Not Given Clonidine (Catapres) 0.1 mg PO Q4H PRN PRN Reason: sbp>160 Last Admin: 08/05/17 03:08 Dose: 0.1 mg Clonidine (Catapres) 0.3 mg PO HS [facility] Last Admin: 08/04/17 20:52 Dose: 0.3 mg Clonidine (Catapres) 0.2 mg PO 0900 [facility] Last Admin: 08/05/17 08:27 Dose: 0.2 mg Dextrose/Water (Dextrose 50%) 25 gm SLOW IVP PRN PRN PRN Reason: Hypoglycemia Furosemide (Lasix) 40 mg PO DAILY-AC [facility] Furosemide (Lasix) 40 mg PO 1100 [facility] Stop: 08/05/17 13:00 Last Admin: 08/05/17 10:36 Dose: 40 mg Glucagon (Glucagon) 1 mg IM PRN PRN PRN Reason: Hypoglycemia Heparin Sodium (Porcine) (Heparin) 5,000 units SC TID [facility] Last Admin: 08/05/17 08:33 Dose: 5,000 units Hydralazine HCl (Apresoline) 10 mg SLOW IVP Q15MIN PRN PRN Reason: SBP>170 Last Admin: 08/05/17 06:35 Dose: 10 mg Hydralazine HCl (Apresoline) 100 mg PO TID [facility] Last Admin: 08/05/17 08:25 Dose: 100 mg Sodium Nitroprusside 50 mg/ (Dextrose/Water) 252 mls @ 0 mls/hr IVPB INF [facility]; Titrate PRN Reason: Protocol Last Admin: 08/02/17 14:04 Dose: 252 mls Dextrose/Water (D5w) 1,000 mls @ 0 mls/hr IV .Q0M PRN; As Directed PRN Reason: Hypoglycemia Insulin Human Regular (Humulin R) 0 units [place] .MODERATE SLIDING SC PRN PRN Reason: Moderate Correctional Scale Last Admin: 08/05/17 11:57 Dose: 6 unit Insulin Human Regular (Humulin R) 0 units [place] .BEDTIME SLIDING SC PRN; Protocol PRN Reason: BEDTIME SLIDING SCALE Last Admin: 08/04/17 21:00 Dose: 4 unit Isosorbide Dinitrate (Isordil) 20 mg PO BID [facility] Last Admin: 08/05/17 08:40 Dose: 20 mg Mycophenolate Mofetil (Cellcept) 500 mg PO BID [facility] Last Admin: 08/05/17 08:29 Dose: 500 mg Nifedipine (Procardia Xl) 90 mg PO DAILY [facility] Last Admin: 08/04/17 14:49 Dose: 90 mg Pantoprazole Sodium (Protonix) 40 mg PO QAM [facility] Last Admin: 08/05/17 08:26 Dose: 40 mg Uloric 80 Mg Tab 1 each PO DAILY [facility] Last Admin: 08/05/17 08:28 Dose: 1 each Tresiba (Insulin (Degludec)) 0 each SC DAILY [facility] Last Admin: 08/05/17 08:30 Dose: 1 each Pravastatin Sodium (Pravachol) 20 mg PO QPM [facility] Last Admin: 08/04/17 20:52 Dose: 20 mg Prednisone (Prednisone) 5 mg PO DAILY [facility] Last Admin: 08/05/17 08:26 Dose: 5 mg Multivit/Folic Acid/Iron ( Vitamin) 1 tab PO QPM [facility] Last Admin: 08/04/17 20:52 Dose: 1 tab Sodium Bicarbonate (Bicarbonate, Sodium) 650 mg PO BID [facility] Last Admin: 08/05/17 08:27 Dose: 650 mg Tacrolimus (Prograf) 6 mg PO BID [facility] Last Admin: 08/05/17 10:13 Dose: 6 mg
[2017-08-05] MEDS: NIFEdipine XL 90 MG TAB PO SCH (14:35)
[2017-08-05] MEDS ORDERED: Minoxidil 10 MG TAB PO SCH (17:45)
--- NOTE | 2017-08-05 20:23 | PRG ---
DATE OF SERVICE: 08/05/2017 SUBJECTIVE: The patient seen and examined today with no new complaint. However, the wide swings on the blood pressure is being noted. OBJECTIVE: VITAL SIGNS: Afebrile with temperature 97.6, pulse 45, blood pressure 209/88, respiratory rate of 15 , O2 sat 97%. HEENT: Unremarkable. CARDIOVASCULAR: First and second heart sounds were heard. RESPIRATORY: Clear to auscultation. DIGESTIVE: Revealed a benign abdomen with positive bowel sounds. EXTREMITIES: No peripheral edema. SKIN: No new gross rash. LYMPHATICS: No peripheral lymphadenopathy. LABORATORY INVESTIGATIONS: Showed a creatinine of 1.45 with BUN of 43 and bicarbonate of 25, potassi um 4.4. IMPRESSION: 1. Allograft nephropathy, but much improved. 2. Flash pulmonary edema/respiratory failure, doing much better. 3. Labile hypertension. 4. Chronic kidney disease stage 3. PLAN: 1. The patient's antihypertensive medications need to be adjusted as simplified. Therefore, we will begin to wean this patient off clonidine and in place of this, we will start this patient on a very low dose minoxidil. This can be titrated upwards as most other antihypertensive medications are bein g weaned off, especially clonidine. 2. Monitor the heart rate closely and adjust beta blockers accordingly. 3. Discontinue sodium bicarbonate. 4. Make the loop diuretics b.i.d. to avoid compensatory fat at the kidney level on a once a day dosi ng. 5. Further management will be dependent on the clinical course.
[2017-08-05] MEDS: Aspirin 81 mg Enteric Coated Tablet PO SCH (21:42)
[2017-08-05] MEDS: Pravastatin Sodium 20 MG TAB PO SCH (21:42)
[2017-08-05] MEDS: Prenatal Vitamin 1 TAB PO SCH (21:43)
[2017-08-06] MEDS: cloNIDine 0.1 MG TAB PO SCH ×3 (00:07→21:31)
[2017-08-06 05:13] LABS: #Basophils 0.1 thou/uL (0.0-0.2); #Eosinphils 0.1 thou/uL (0.0-0.7); #Lymphocytes 1.8 thou/uL (1.20-3.40); #Monocytes 0.6 thou/uL (0.11-0.59); #Neutrophils 3.2 thou/uL (1.40-6.50); %Eosinophils 1.4 % (0.0-10.0); %Lymphocytes 31.6 % (21.0-51.0); %Monocytes 10.1 % (0.0-10.0); %Neutrophils 55.8 % (42.0-75.0); Hemoglobin 8.9 g/dL (14.0-18.0); Mean Corpuscular HGB CONC 31.7 g/dL (32.0-36.0); Mean Corpuscular Hemoglobin 29.5 pg (27.0-31.0); Mean Corpuscular Volume 92.9 fl (80.0-94.0); Mean Platelet Volume 7.9 fL (7.4-10.4); Platelet Count 225 thou/uL (130-400); RBC Distribution Width 14.7 % (11.5-14.5); Red Blood Cell (RBC) Count 3.01 mill/uL (4.70-6.10); White Blood Cell (WBC) Count 5.7 thou/uL (4.8-10.8)
[2017-08-06 05:31] LABS: Anion Gap 10 mmol/L (10-20); BUN (Urea Nitrogen) 49 mg/dL (8.4-25.7); Calc. Creatinine Clearance 40 mL/min (70-130); Calcium 8.9 mg/dL (7.8-10.44); Carbon Dioxide 25 mmol/L (23-31); Chloride 108 mmol/L (98-107); Estimated GFR-MDRD 46; Glucose 111 mg/dL (80-115); Potassium 4.4 mmol/L (3.5-5.1); Sodium 139 mmol/L (136-145)
[2017-08-06] MEDS: hydrALAZINE 20 MG/ML VIAL SLOW IVP PRN (05:51)
[2017-08-06] MEDS ORDERED: Furosemide 40 MG TAB PO SCH ×2 (07:30→09:00)
[2017-08-06] MEDS: hydrALAZINE 25 MG TAB PO SCH ×3 (08:14→21:32)
[2017-08-06] MEDS: Minoxidil 2.5 MG TAB PO SCH (08:16)
[2017-08-06] MEDS: Isosorbide Dinitrate 20 MG TAB PO SCH ×2 (08:17→21:32)
[2017-08-06] MEDS: TRESIBA (INSULIN DEGLUDEC) SC SCH (08:25)
[2017-08-06] MEDS: ULORIC 80 MG PO SCH (09:39)
[2017-08-06] MEDS: Mycophenolate 250 MG CAP PO SCH ×2 (09:41→21:32)
[2017-08-06] MEDS: predniSONE 5 MG TAB PO SCH (09:41)
[2017-08-06] MEDS: Carvedilol 3.125 MG TAB PO SCH ×2 (09:42→17:27)
[2017-08-06] MEDS: Tacrolimus 1 MG CAP PO SCH ×2 (09:42→21:33)
[2017-08-06] MEDS: Heparin 5,000 UNITS/ML VIAL SC SCH ×3 (09:42→21:32)
--- NOTE | 2017-08-06 10:55 | PRG ---
DATE OF SERVICE: 08/06/2017 SUBJECTIVE: Mr. Caldera is a 71-year-old white male, who was admitted for CHF. We are following him u p for his renal transplant. He is currently on his current immunosuppressive regimen. The most rece nt tacrolimus level is 8.0, which is therapeutic. The target is between 4 and 8. He was developing some mild shortness of breath. Adjustment of his Lasix was done. He received an extra dose today. Currently at 40 mg tab once a day. No other complaints. PHYSICAL EXAMINATION: VITAL SIGNS: Blood pressure is 179/99, heart rate 55, respiratory rate 18, temperature 97.6, and pul se ox 96%. GENERAL: Noted to be awake, alert, comfortable, not in distress. SKIN: Adequate turgor. HEENT: Pinkish conjunctivae, anicteric sclerae. NECK: No neck mass, no carotid bruits, no JVD. CHEST: No deformities. LUNGS: Clear breath sounds, no wheezing, no crackles. HEART: Normal sinus rhythm. No murmur, no gallops or rubs. ABDOMEN: Globular, soft, nontender, no masses. EXTREMITIES: No edema. Renal allograft is noted to be nontender. MEDICATIONS: 08/06/2017 was reviewed. LABORATORY DATA: On 08/06/2017 - Sodium 139, potassium 4.4, chloride 108, carbon dioxide 25, BUN 49, creatinine 1.52, GFR 46 mL per minute, glucose 111, calcium 8.9, white count 5.7, and hemoglobin 8.9 . ASSESSMENT AND PLAN: 1. Congestive heart failure - consider diastolic dysfunction. Last ejection fraction was noted to b e within normal. Cardiology is following. 2. Labile hypertension - continue current BP meds. We will do on a renal Doppler of the renal allogr aft to rule out renal artery stenosis. 3. Status post cadaveric renal transplant, stable. The patient's creatinine is fluctuating and this could be a reflection of the diuretic regimen. His tacrolimus level is therapeutic. No changes ab l be made with the current immunosuppressive regimen.
[2017-08-06] MEDS: Insulin Regular 300 UNITS/3 ML VIAL SC PRN ×2 (12:43→17:27)
[2017-08-06] MEDS: NIFEdipine XL 90 MG TAB PO SCH (12:43)
--- NOTE | 2017-08-06 14:25 | PDOC.PN ---
- Subjective Encounter Start Date: 08/06/17 Encounter Start Time: 09:00 -: old records requested/rev Patient seen and examined for chf. No new complaints. No overnight events BP continue to be labile in hospital - Objective Resuscitation Status: Resuscitation Status FULL:Full Resuscitation MAR Reviewed: Yes Vital Signs & Weight: Vital Signs (12 hours) Temp Pulse Resp BP BP BP Pulse Ox 08/06/17 12:43 54 L 08/06/17 12:35 97.8 F 54 L 17 203/101 H 96 08/06/17 09:36 53 L 170/84 H 08/06/17 08:30 179/99 H 08/06/17 08:14 55 L 187/81 H 08/06/17 08:07 97.6 F 55 L 18 229/91 H 96 08/06/17 05:51 54 L 187/81 H 08/06/17 04:13 98.5 F 54 L 18 187/81 H 93 L 08/06/17 03:13 96 Weight Weight 147 lb 9.6 oz Most Recent Monitor Data Heart Rate from ECG 46 NIBP 200/59 NIBP BP-Mean 106 Respiration from ECG 15 SpO2 100 I&O: 08/05/17 08/06/17 08/07/17 06:59 06:59 06:59 Intake Total 750 910.5 Output Total 2700 1650 Balance -1950 -739.5 Result Diagrams: 08/06/17 04:35 08/06/17 04:35 Additional Labs: Accuchecks 08/06/17 08/06/17 08/05/17 11:37 05:50 21:03 POC Glucose 214 H 129 H 336 H 08/05/17 16:44 POC Glucose 207 H Radiology Reviewed by me: Yes (renal us) EKG Reviewed by me: Yes Phys Exam - Physical Examination Constitutional: NAD HEENT: PERRLA, moist MMs, sclera anicteric Neck: no JVD, supple Respiratory: no wheezing, no rales, no rhonchi Cardiovascular: RRR, no significant murmur, no rub Gastrointestinal: soft, non-tender, no distention, positive bowel sounds Musculoskeletal: no edema, pulses present Neurological: non-focal, normal sensation Lymphatic: no nodes Psychiatric: normal affect, A&O x 3 Skin: no rash, normal turgor Dx/Plan (1) MONTRELL (acute kidney injury) Code(s): N17.9 - ACUTE KIDNEY FAILURE, UNSPECIFIED Status: Acute (2) Acute on chronic diastolic (congestive) heart failure Code(s): I50.33 - ACUTE ON CHRONIC DIASTOLIC (CONGESTIVE) HEART FAILURE Status : Acute (3) Hypertensive urgency Code(s): I16.0 - HYPERTENSIVE URGENCY Status: Acute (4) Anemia of renal disease Code(s): D63.1 - ANEMIA IN CHRONIC KIDNEY DISEASE Status: Chronic (5) CAD (coronary artery disease) Code(s): I25.10 - ATHSCL HEART DISEASE OF [place] CORONARY ARTERY W/O ANG PCTRS Status: Chronic Qualifiers: Coronary Disease-Associated Artery/Lesion type: bypass graft [place] vs. transplanted heart: [place] heart Associated angina: without angina Qualified Code(s): I25.810 - Atherosclerosis of coronary artery bypass graft(s) without angina pectoris (6) DM type 2 (diabetes mellitus, type 2) Status: Chronic Qualifiers: Diabetes mellitus longwall foreman insulin use: without longwall foreman use Diabetes mellitus complication status: with kidney complications Diabetes mellitus complication detail: with chronic kidney disease Chronic kidney disease stage : stage 2 (mild) Qualified Code(s): E11.22 - Type 2 diabetes mellitus with diabetic chronic kidney disease; N18.2 - Chronic kidney disease, stage 2 (mild) ; N18.2 - Chronic kidney disease, stage 2 (mild) (7) Dyslipidemia Code(s): E78.5 - HYPERLIPIDEMIA, UNSPECIFIED Status: Chronic (8) H/O kidney transplant Status: Chronic Comment: is on prograf, cellcept and prednisone (9) Moderate mitral regurgitation Code(s): I34.0 - NONRHEUMATIC MITRAL (VALVE) INSUFFICIENCY Status: Chronic (10) Secondary hyperparathyroidism of renal origin Code(s): N25.81 - SECONDARY HYPERPARATHYROIDISM OF RENAL ORIGIN Status: Chronic (11) Acute respiratory failure with hypoxia Code(s): J96.01 - ACUTE RESPIRATORY FAILURE WITH HYPOXIA Status: Resolved (12) Flash pulmonary edema Code(s): J81.0 - ACUTE PULMONARY EDEMA Status: Resolved - Plan cont current plan of care, plan discussed w/ family * US renal to rule out any renal artery stenosis, for his labile hypertension * per pt, current timing of medication in hospital might be reason, at home his BP remains good * medication reviewed as below * symptomatic treatment * discussed with * nephrology, cardiology and pulmonary following. * expecting discharge tomorrow * aldosteron, renin acitivity, metanephrin level tomorrow Review of Systems - Review of Systems Eyes: negative: Pain, Vision Change, Conjunctivae Inflammation, Eyelid Inflammation, Redness, Other ENT: negative: Ear Pain, Ear Discharge, Nose Pain, Nose Discharge, Nose Congestion, Mouth Pain, Mouth Swelling, Throat Pain, Throat Swelling, Other Respiratory: negative: Cough, Dry, Shortness of Breath, Hemoptysis, SOB with Excertion, Pleuritic Pain, Sputum, Wheezing Cardiovascular: orthopnea. negative: chest pain, palpitations, paroxysmal nocturnal dyspnea, edema, light headedness, other Gastrointestinal: negative: Nausea, Vomiting, Abdominal Pain, Diarrhea, Constipation, Melena, Hematochezia, Other Genitourinary: negative: Dysuria, Frequency, Incontinence, Hematuria, Retention , Other Musculoskeletal: negative: Neck Pain, Shoulder Pain, Arm Pain, Back Pain, Hand Pain, Leg Pain, Foot Pain, Other Skin: negative: Rash, Lesions, Kade, Bruising, Other - Medications/Allergies Allergies/Adverse Reactions: Allergies Allergy/AdvReac Type Severity Reaction Status Date / Time amlodipine AdvReac Verified 02/03/17 23:26 doxazosin AdvReac Stomach Verified 02/03/17 23:26 Ache hydralazine AdvReac Verified 02/03/17 23:26 Medications: Current Medications Aspirin (Ecotrin) 81 mg PO SuTuThSa@2100 [facility] Last Admin: 08/05/17 21:42 Dose: 81 mg Bisacodyl (Dulcolax) 10 mg ID Q24H PRN PRN Reason: Constipation Carvedilol (Coreg) 3.125 mg PO BID-WM [facility] Last Admin: 08/06/17 09:42 Dose: 3.125 mg Clonidine (Catapres) 0.1 mg PO Q4H PRN PRN Reason: sbp>160 Last Admin: 08/05/17 03:08 Dose: 0.1 mg Clonidine (Catapres) 0.1 mg PO 0900 [facility] Last Admin: 08/06/17 08:13 Dose: 0.1 mg Clonidine (Catapres) 0.1 mg PO HS [facility] Last Admin: 08/06/17 00:07 Dose: 0.1 mg Dextrose/Water (Dextrose 50%) 25 gm SLOW IVP PRN PRN PRN Reason: Hypoglycemia Furosemide (Lasix) 40 mg PO DAILY-AC [facility] Glucagon (Glucagon) 1 mg IM PRN PRN PRN Reason: Hypoglycemia Heparin Sodium (Porcine) (Heparin) 5,000 units SC TID [facility] Last Admin: 08/06/17 09:42 Dose: 5,000 units Hydralazine HCl (Apresoline) 10 mg SLOW IVP Q15MIN PRN PRN Reason: SBP>170 Last Admin: 08/06/17 05:51 Dose: 10 mg Hydralazine HCl (Apresoline) 100 mg PO TID [facility] Last Admin: 08/06/17 08:14 Dose: 100 mg Dextrose/Water (D5w) 1,000 mls @ 0 mls/hr IV .Q0M PRN; As Directed PRN Reason: Hypoglycemia Insulin Human Regular (Humulin R) 0 units SC .MODERATE SLIDING SC PRN PRN Reason: Moderate Correctional Scale Last Admin: 08/06/17 12:43 Dose: 4 unit Insulin Human Regular (Humulin R) 0 units SC .BEDTIME SLIDING SC PRN; Protocol PRN Reason: BEDTIME SLIDING SCALE Last Admin: 08/05/17 22:14 Dose: 4 unit Isosorbide Dinitrate (Isordil) 20 mg PO BID [facility] Last Admin: 08/06/17 08:17 Dose: 20 mg Minoxidil (Minoxidil) 2.5 mg PO DAILY [facility] Last Admin: 08/06/17 08:16 Dose: 2.5 mg Mycophenolate Mofetil (Cellcept) 500 mg PO BID [facility] Last Admin: 08/06/17 09:41 Dose: 500 mg Nifedipine (Procardia Xl) 90 mg PO 1200 [facility] Last Admin: 08/06/17 12:43 Dose: 90 mg Pantoprazole Sodium (Protonix) 40 mg PO QAM [facility] Last Admin: 08/06/17 09:41 Dose: 40 mg Uloric 80 Mg Tab 1 each PO DAILY [facility] Last Admin: 08/06/17 09:39 Dose: 1 each Tresiba (Insulin (Degludec)) 0 each SC DAILY [facility] Last Admin: 08/06/17 08:25 Dose: 1 each Pravastatin Sodium (Pravachol) 20 mg PO QPM [facility] Last Admin: 08/05/17 21:42 Dose: 20 mg Prednisone (Prednisone) 5 mg PO DAILY [facility] Last Admin: 08/06/17 09:41 Dose: 5 mg Multivit/Folic Acid/Iron ( Vitamin) 1 tab PO QPM [facility] Last Admin: 08/05/17 21:43 Dose: 1 tab Sodium Chloride (Flush - Normal Saline) 10 ml IVF Q12HR [facility] Last Admin: 08/05/17 21:48 Dose: 10 ml Sodium Chloride (Flush - Normal Saline) 10 ml IVF PRN PRN PRN Reason: Saline Flush Last Admin: 08/06/17 05:52 Dose: 10 ml Tacrolimus (Prograf) 6 mg PO BID [facility] Last Admin: 08/06/17 09:42 Dose: 6 mg
--- NOTE | 2017-08-06 15:45 | PRG ---
DATE OF SERVICE: 08/06/2017 SERVICE: Pulmonary Medicine. INTERVAL HISTORY: The patient is breathing comfortably. Whenever he lies down, he feels short of br eath initially. This almost immediate. He takes a couple of deep breaths and sometimes this passes. That being said, he is having a hard time sleeping in his current configuration. He has got an ult rasound of his kidneys due today. Otherwise, there has been notable change to his condition. His bl ood pressures have remained fairly labile. That being said, he has not had any recurrence in hypoxic failure. OBJECTIVE: VITAL SIGNS: Afebrile, pulse 54, blood pressure 203/101, respirations 17, saturation 96% on room air . GENERAL: The patient is awake, alert, no apparent distress. LUNGS: Decent air entry bilaterally. There are some dependent crackles, which are minimal. Decreas ed air entry at the left base. HEART: Normal rate, regular. ABDOMEN: Soft, nontender, nondistended. Bowel sounds are positive. MUSCULOSKELETAL: No cyanosis or clubbing. There is no pitting in the bilateral lower extremities. NEUROLOGIC: Grossly nonfocal. LABORATORY DATA: WBC 5.7, hemoglobin 8.9, platelets 225,000. Creatinine 1.52, BUN 49 and up trendin g. Basic metabolic profile is otherwise unremarkable. Tacrolimus level falls within the normal limi ts. ASSESSMENT: 1. Acute hypoxic respiratory failure, resolved. 2. Right-sided pleural effusion, history of proven transudate with a trapped lung pressure dynamics. 3. Acute on chronic diastolic heart failure. 4. Mitral regurgitation. 6. Chronic kidney disease with history of kidney transplant. 7. Obstructive sleep apnea, suspected. DISCUSSION AND PLAN: From the lung standpoint, the patient is stable for transition out of the [facility] though we are still working on some of his blood pressure medications. I will have him return to clinic to see me in 1-2 weeks in the outpatient setting with a chest x-ray. We will also set him up for a polysomnogram at that time. Please call with additional questions or concerns moving forward.
[2017-08-06] MEDS: Pravastatin Sodium 20 MG TAB PO SCH (21:32)
[2017-08-06] MEDS: Prenatal Vitamin 1 TAB PO SCH (21:32)
--- NOTE | 2017-08-06 22:14 | PDOC.CTH ---
Cardiology Progress Note - Subjective He is feeling well. BP has remained high in the 170's to 200's. - Objective Vital Signs Temp Pulse Resp BP BP BP Pulse Ox 08/06/17 21:32 54 L 172/84 H 08/06/17 21:31 172/84 H 08/06/17 17:00 98.0 F 54 L 15 151/68 H 96 08/06/17 15:10 54 L 08/06/17 12:43 54 L 08/06/17 12:35 97.8 F 54 L 17 203/101 H 96 Weight 147 lb 9.6 oz 08/05/17 08/06/17 08/07/17 06:59 06:59 06:59 Intake Total 750 910.5 840 Output Total 2700 1650 850 Balance -1950 -739.5 -10 - Physical Examination General/Neuro: alert & oriented x3, NAD Neck: no JVD present Lungs: CTA, unlabored respirations Heart: RRR Abdomen: NT/ND Extremities: other: (no edema) - Telemetry Telemetry Rhythm: NSR - Labs Result Diagrams: 08/06/17 04:35 08/06/17 04:35 Troponin/CKMB CK-MB (CK-2) 3.8 ng/mL (0-6.6) 08/02/17 04:26 Troponin I 0.112 ng/mL (< 0.028) H 08/02/17 07:05 - Assessment/Plan 1. Flash pulmonary edema, resolved. 2. Acute on chronic diastolic heart failure, improved. 3. HTN 4. S/P Renal transplantation 5. S/P CABG x 3 PLAN: - Continue to up titrate BP meds. - Continue to monitor. - Home once BP better controlled.
[2017-08-07] MEDS: hydrALAZINE 20 MG/ML VIAL SLOW IVP PRN ×4 (00:03→10:25)
[2017-08-07 05:11] LABS: #Eosinphils 0.1 thou/uL (0.0-0.7); #Lymphocytes 1.4 thou/uL (1.20-3.40); #Monocytes 0.6 thou/uL (0.11-0.59); #Neutrophils 2.9 thou/uL (1.40-6.50); %Basophils 0.8 % (0.0-1.0); %Lymphocytes 28.2 % (21.0-51.0); %Monocytes 11.3 % (0.0-10.0); %Neutrophils 57.6 % (42.0-75.0); Hemoglobin 8.1 g/dL (14.0-18.0); Mean Corpuscular HGB CONC 31.6 g/dL (32.0-36.0); Mean Corpuscular Hemoglobin 29.4 pg (27.0-31.0); Mean Corpuscular Volume 92.9 fl (80.0-94.0); Mean Platelet Volume 7.6 fL (7.4-10.4); Platelet Count 203 thou/uL (130-400); RBC Distribution Width 14.6 % (11.5-14.5); Red Blood Cell (RBC) Count 2.76 mill/uL (4.70-6.10)
[2017-08-07 05:19] LABS: Albumin 3.4 g/dL (3.4-4.8); Anion Gap 9 mmol/L (10-20); BUN (Urea Nitrogen) 53 mg/dL (8.4-25.7); Calc. Creatinine Clearance 33 mL/min (70-130); Calcium 8.3 mg/dL (7.8-10.44); Carbon Dioxide 24 mmol/L (23-31); Chloride 110 mmol/L (98-107); Estimated GFR-MDRD 33; Glucose 99 mg/dL (80-115); Phosphorus 4.8 mg/dL (2.3-4.7); Potassium 3.9 mmol/L (3.5-5.1); Sodium 139 mmol/L (136-145)
[2017-08-07] MEDS: Carvedilol 3.125 MG TAB PO SCH ×2 (06:23→17:04)
[2017-08-07] MEDS: cloNIDine 0.1 MG TAB PO SCH ×2 (06:23→21:53)
[2017-08-07] MEDS ORDERED: Furosemide 40 MG TAB PO SCH (07:30)
--- NOTE | 2017-08-07 07:36 | ULT ---
RENAL ULTRASOUND: History: Transplant kidney. Abnormal labs. Comparison: 02-07-14 Technique: Grayscale, color flow, doppler imaging, and spectral waveform analysis was performed of th e [place] and transplanted kidney. FINDINGS: [place] left kidney is poorly defined. No obvious hydronephrosis. Right kidney measures 4.6 x 4.5 x 7. 8 cm. Transplanted kidney in the right hemiabdomen measures 11.3 x 5.4 x 6.2 cm. There is vascular flow to the renal cortex. Resistive index of the right kidney artery to aorta ratio is between 0.87 and 0.9. Transplanted renal artery velocity 151.3 cm. Aorta is 111.2 cm. Right transplanted renal artery to ao rta ratio 1.4. Urinary bladder is unremarkable with a pre void volume of 75 mL. IMPRESSION: Increased transplanted kidney arcuate artery resistive index. Evaluate for medial renal disease. POS: [facility]
[2017-08-07] MEDS: Isosorbide Dinitrate 20 MG TAB PO SCH ×2 (08:46→21:53)
[2017-08-07] MEDS: hydrALAZINE 25 MG TAB PO SCH ×3 (08:46→21:49)
[2017-08-07] MEDS: predniSONE 5 MG TAB PO SCH (08:46)
[2017-08-07] MEDS: ULORIC 80 MG PO SCH (08:47)
[2017-08-07] MEDS: TRESIBA (INSULIN DEGLUDEC) SC SCH (08:47)
[2017-08-07] MEDS: Minoxidil 2.5 MG TAB PO SCH (08:47)
[2017-08-07] MEDS: Heparin 5,000 UNITS/ML VIAL SC SCH ×3 (08:47→22:02)
[2017-08-07] MEDS: Mycophenolate 250 MG CAP PO SCH ×2 (08:53→21:53)
[2017-08-07] MEDS: Tacrolimus 1 MG CAP PO SCH ×2 (08:53→21:49)
[2017-08-07] MEDS ORDERED: Furosemide 20 MG TAB PO SCH (09:00)
[2017-08-07] MEDS: cloNIDine 0.1 MG TAB PO PRN (10:25)
--- NOTE | 2017-08-07 10:43 | PDOC.PN ---
- Subjective Encounter Start Date: 08/07/17 Encounter Start Time: 08:00 Patient seen and examined. No new complaints. No overnight events he slept well last night, no dyspnea, even with high blood pressure he does not get any symptoms - Objective Resuscitation Status: Resuscitation Status FULL:Full Resuscitation MAR Reviewed: Yes Vital Signs & Weight: Vital Signs (12 hours) Temp Pulse Resp BP BP Pulse Ox 08/07/17 06:23 219/92 H 08/07/17 04:46 96 08/07/17 04:24 52 L 210/52 H 08/07/17 03:55 98 F 55 L 14 210/52 H 96 08/07/17 00:03 50 L 182/74 H 08/07/17 00:00 97.9 F 53 L 18 184/79 H 95 Weight Weight 147 lb 9.6 oz Most Recent Monitor Data Heart Rate from ECG 46 NIBP 200/59 NIBP BP-Mean 106 Respiration from ECG 15 SpO2 100 I&O: 08/06/17 08/07/17 08/08/17 06:59 06:59 06:59 Intake Total 910.5 840 Output Total 1650 850 Balance -739.5 -10 Result Diagrams: 08/07/17 04:52 08/07/17 04:52 Additional Labs: Accuchecks 08/07/17 08/06/17 08/06/17 05:59 20:47 17:04 POC Glucose 110 185 H 245 H 08/06/17 11:37 POC Glucose 214 H Radiology Reviewed by me: Yes (renal US) EKG Reviewed by me: Yes Phys Exam - Physical Examination Constitutional: NAD HEENT: PERRLA, moist MMs, sclera anicteric Neck: no JVD, supple Respiratory: no wheezing, no rales, no rhonchi Cardiovascular: RRR, no significant murmur, no rub Gastrointestinal: soft, non-tender, no distention, positive bowel sounds Musculoskeletal: no edema, pulses present Neurological: non-focal, normal sensation Lymphatic: no nodes Psychiatric: normal affect, A&O x 3 Skin: no rash, normal turgor Dx/Plan (1) MONTRELL (acute kidney injury) Code(s): N17.9 - ACUTE KIDNEY FAILURE, UNSPECIFIED Status: Acute (2) Acute on chronic diastolic (congestive) heart failure Code(s): I50.33 - ACUTE ON CHRONIC DIASTOLIC (CONGESTIVE) HEART FAILURE Status : Acute (3) Hypertensive urgency Code(s): I16.0 - HYPERTENSIVE URGENCY Status: Acute (4) Anemia of renal disease Code(s): D63.1 - ANEMIA IN CHRONIC KIDNEY DISEASE Status: Chronic (5) CAD (coronary artery disease) Code(s): I25.10 - ATHSCL HEART DISEASE OF [place] CORONARY ARTERY W/O ANG PCTRS Status: Chronic Qualifiers: Coronary Disease-Associated Artery/Lesion type: bypass graft [place] vs. 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 Diabetes mellitus complication status: with kidney complications Diabetes mellitus complication detail: with chronic kidney disease Chronic kidney disease stage : stage 2 (mild) Qualified Code(s): E11.22 - Type 2 diabetes mellitus with diabetic chronic kidney disease; N18.2 - Chronic kidney disease, stage 2 (mild) ; N18.2 - Chronic kidney disease, stage 2 (mild) (7) Dyslipidemia Code(s): E78.5 - HYPERLIPIDEMIA, UNSPECIFIED Status: Chronic (8) H/O kidney transplant Status: Chronic Comment: is on prograf, cellcept and prednisone (9) Moderate mitral regurgitation Code(s): I34.0 - NONRHEUMATIC MITRAL (VALVE) INSUFFICIENCY Status: Chronic (10) Secondary hyperparathyroidism of renal origin Code(s): N25.81 - SECONDARY HYPERPARATHYROIDISM OF RENAL ORIGIN Status: Chronic (11) Acute respiratory failure with hypoxia Code(s): J96.01 - ACUTE RESPIRATORY FAILURE WITH HYPOXIA Status: Resolved (12) Flash pulmonary edema Code(s): J81.0 - ACUTE PULMONARY EDEMA Status: Resolved - Plan cont current plan of care, plan discussed w/ family * pt's BP is still labile * nephrology, cardiology,pulmonary following * unsure reason why BP fluctuates * renal US done, showed high resistive indices for transplanted kidney, unsure significant * will consider discharge when all speech correction consultant give green signal * discussed with * medication reviewed as below * symptomatic treatment. Review of Systems - Review of Systems Eyes: negative: Pain, Vision Change, Conjunctivae Inflammation, Eyelid Inflammation, Redness, Other ENT: negative: Ear Pain, Ear Discharge, Nose Pain, Nose Discharge, Nose Congestion, Mouth Pain, Mouth Swelling, Throat Pain, Throat Swelling, Other Respiratory: negative: Cough, Dry, Shortness of Breath, Hemoptysis, SOB with Excertion, Pleuritic Pain, Sputum, Wheezing Cardiovascular: negative: chest pain, palpitations, orthopnea, paroxysmal nocturnal dyspnea, edema, light headedness, other Gastrointestinal: negative: Nausea, Vomiting, Abdominal Pain, Diarrhea, Constipation, Melena, Hematochezia, Other Genitourinary: negative: Dysuria, Frequency, Incontinence, Hematuria, Retention , Other Musculoskeletal: negative: Neck Pain, Shoulder Pain, Arm Pain, Back Pain, Hand Pain, Leg Pain, Foot Pain, Other Skin: negative: Rash, Lesions, Kade, Bruising, Other - Medications/Allergies Allergies/Adverse Reactions: Allergies Allergy/AdvReac Type Severity Reaction Status Date / Time amlodipine AdvReac Verified 02/03/17 23:26 doxazosin AdvReac Stomach Verified 02/03/17 23:26 Ache hydralazine AdvReac Verified 02/03/17 23:26 Medications: Current Medications Aspirin (Ecotrin) 81 mg PO SuTuThSa@2100 [facility] Last Admin: 08/05/17 21:42 Dose: 81 mg Bisacodyl (Dulcolax) 10 mg [place] Q24H PRN PRN Reason: Constipation Carvedilol (Coreg) 3.125 mg PO BID-[facility] Last Admin: 08/07/17 06:23 Dose: 3.125 mg Clonidine (Catapres) 0.1 mg PO Q4H PRN PRN Reason: sbp>160 Last Admin: 08/07/17 10:25 Dose: 0.1 mg Clonidine (Catapres) 0.1 mg PO 0900 [facility] Last Admin: 08/07/17 06:23 Dose: 0.1 mg Clonidine (Catapres) 0.1 mg PO HS [facility] Last Admin: 08/06/17 21:31 Dose: 0.1 mg Dextrose/Water (Dextrose 50%) 25 gm SLOW IVP PRN PRN PRN Reason: Hypoglycemia Furosemide (Lasix) 20 mg PO DAILY [facility] Last Admin: 08/07/17 08:46 Dose: 20 mg Glucagon (Glucagon) 1 mg IM PRN PRN PRN Reason: Hypoglycemia Heparin Sodium (Porcine) (Heparin) 5,000 units SC TID [facility] Last Admin: 08/07/17 08:47 Dose: 5,000 units Hydralazine HCl (Apresoline) 10 mg SLOW IVP Q15MIN PRN PRN Reason: SBP>170 Last Admin: 08/07/17 10:25 Dose: 10 mg Hydralazine HCl (Apresoline) 100 mg PO TID [facility] Last Admin: 08/07/17 08:46 Dose: 100 mg Dextrose/Water (D5w) 1,000 mls @ 0 mls/hr IV .Q0M PRN; As Directed PRN Reason: Hypoglycemia Insulin Human Regular (Humulin R) 0 units SC .MODERATE SLIDING SC PRN PRN Reason: Moderate Correctional Scale Last Admin: 08/06/17 17:27 Dose: 4 unit Insulin Human Regular (Humulin R) 0 units SC .BEDTIME SLIDING SC PRN; Protocol PRN Reason: BEDTIME SLIDING SCALE Last Admin: 08/05/17 22:14 Dose: 4 unit Isosorbide Dinitrate (Isordil) 20 mg PO BID [facility] Last Admin: 08/07/17 08:46 Dose: 20 mg Minoxidil (Minoxidil) 2.5 mg PO DAILY [facility] Last Admin: 08/07/17 08:47 Dose: 2.5 mg Mycophenolate Mofetil (Cellcept) 500 mg PO BID [facility] Last Admin: 08/07/17 08:53 Dose: 500 mg Nifedipine (Procardia Xl) 90 mg PO 1200 [facility] Last Admin: 08/06/17 12:43 Dose: 90 mg Pantoprazole Sodium (Protonix) 40 mg PO QAM [facility] Last Admin: 08/07/17 08:46 Dose: 40 mg Uloric 80 Mg Tab 1 each PO DAILY [facility] Last Admin: 08/07/17 08:47 Dose: 1 each Tresiba (Insulin (Degludec)) 0 each SC DAILY [facility] Last Admin: 08/07/17 08:47 Dose: 1 each Pravastatin Sodium (Pravachol) 20 mg PO QPM [facility] Last Admin: 08/06/17 21:32 Dose: 20 mg Prednisone (Prednisone) 5 mg PO DAILY [facility] Last Admin: 08/07/17 08:46 Dose: 5 mg Multivit/Folic Acid/Iron ( Vitamin) 1 tab PO QPM [facility] Last Admin: 08/06/17 21:32 Dose: 1 tab Sodium Chloride (Flush - Normal Saline) 10 ml IVF Q12HR [facility] Last Admin: 08/07/17 08:48 Dose: 10 ml Sodium Chloride (Flush - Normal Saline) 10 ml IVF PRN PRN PRN Reason: Saline Flush Last Admin: 08/06/17 05:52 Dose: 10 ml Tacrolimus (Prograf) 6 mg PO BID [facility] Last Admin: 08/07/17 08:53 Dose: 6 mg
[2017-08-07] MEDS: Insulin Regular 300 UNITS/3 ML VIAL SC PRN ×3 (11:58→22:03)
[2017-08-07] MEDS: NIFEdipine XL 90 MG TAB PO SCH (12:01)
--- NOTE | 2017-08-07 13:23 | PRG ---
DATE OF SERVICE: 08/07/2017 SUBJECTIVE: Mr. Caldera is a 71-year-old white male, who status post cadaveric renal transplant, admit nina for CHF. We are following up this patient for his transplant management. His last tacrolimus le marlon was noted to be therapeutic. Lasix has been adjusted due to the worsening renal dysfunction. He is currently on Lasix at 20 mg tablet once a day. In addition, he has had labile hypertension. A r enal ultrasound with Doppler was done, which showed increased arc[place] artery resistive index -- there was no obvious renal artery stenosis. No other complaints today. He tells me his breathing is much better. Please note he received some e xtra diuretics yesterday. OBJECTIVE: VITAL SIGNS: Blood pressure is ranging from 172/84 to as high as 219/92 -- this is before blood pres sure medications, O2 sat is 96% and heart rate is 52. GENERAL: Awake, alert, sitting comfortable, not in distress. SKIN: Adequate turgor. HEENT: Slightly pale conjunctivae, anicteric sclerae. NECK: No neck mass, no carotid bruits, no JVD. CHEST: No deformities. LUNGS: Decreased breath sounds. HEART: Bradycardic. No murmur, no gallops, no rubs. ABDOMEN: Globular, soft, nontender, no masses. EXTREMITIES: No edema, no deformities. MEDICATIONS: Medications of 08/07/2017 was reviewed. LABORATORY DATA: Laboratories of 08/07/2017 showed a white count of 5, hemoglobin 8.1. Sodium 139, potassium 3.9, chloride 110, carbon dioxide 24, BUN 53, creatinine 2.0, glucose 99, calcium 8.3, phos phorus 4.8 minimally elevated, albumin is 3.4. ASSESSMENT AND PLAN: 1. Labile hypertension -- the patient recently started on minoxidil at 2.5 mg tablet once a day. Co ntinue to adjust blood pressure medications as needed. Continue other antihypertensive medication. 2. Status post cadaveric renal transplant -- creatinine slightly higher at 2.0. This most likely is a reflection of the previous diuretic regimen. Lasix has been adjusted by his assistant operations manager. 3. Congestive heart failure, clinically much improved. He tells me his breathing last night was muc h better. We will recheck a base met CBC in a.m. Agree with current management.
--- NOTE | 2017-08-07 16:47 | ULT ---
RENAL ULTRASOUND: US ABD PEL DUPART ANDREW FLOW: History: Transplant kidney. Abnormal labs. Comparison: 02-07-14 Technique: Grayscale, color flow, doppler imaging, and spectral waveform analysis was performed of th e [place] and transplanted kidney. FINDINGS: [place] left kidney is poorly defined. No obvious hydronephrosis. Right kidney measures 4.6 x 4.5 x 7. 8 cm. Transplanted kidney in the right hemiabdomen measures 11.3 x 5.4 x 6.2 cm. There is vascular flow to the renal cortex. Resistive index of the right kidney artery to aorta ratio is between 0.87 and 0.9. Transplanted renal artery velocity 151.3 cm. Aorta is 111.2 cm. Right transplanted renal artery to ao rta ratio 1.4. Urinary bladder is unremarkable with a pre void volume of 75 mL. IMPRESSION: Increased transplanted kidney arcuate artery resistive index. Evaluate for medical renal disease.
--- NOTE | 2017-08-07 17:32 | PDOC.CTH ---
Cardiology Progress Note - Subjective He is doing well. His renal function worsened overnight. He stats his breathing is back to baseline. - Objective Vital Signs Temp Pulse Resp BP BP BP Pulse Ox 08/07/17 15:40 97.9 F 52 L 18 195/84 H 98 08/07/17 12:00 161/85 H 08/07/17 11:10 97.9 F 51 L 20 219/93 H 96 08/07/17 10:20 209/84 H 08/07/17 09:50 200/88 H 08/07/17 08:30 97.8 F 60 18 218/93 H 96 08/07/17 06:23 219/92 H Weight 147 lb 9.6 oz 08/06/17 08/07/17 08/08/17 06:59 06:59 06:59 Intake Total 910.5 840 Output Total 1650 850 Balance -739.5 -10 - Physical Examination General/Neuro: alert & oriented x3, NAD Neck: no JVD present Lungs: unlabored respirations Heart: RRR Abdomen: NT/ND Extremities: other: (no edema.) - Telemetry Telemetry Rhythm: NSR - Labs Result Diagrams: 08/07/17 04:52 08/07/17 04:52 Troponin/CKMB CK-MB (CK-2) 3.8 ng/mL (0-6.6) 08/02/17 04:26 Troponin I 0.112 ng/mL (< 0.028) H 08/02/17 07:05 - Assessment/Plan 1. Flash pulmonary edema, resolved. 2. Acute on chronic diastolic heart failure, improved. 3. HTN 4. S/P Renal transplantation 5. S/P CABG x 3 6. Acute on chronic renal failure. Creatinine up to 2.0 PLAN: - Continue to up titrate BP meds. - Continue to monitor. - Will hold lasix and will give small IV fluid bolus. - Will increase his Clonidine to 0.1 mg TID as this how he has been using it at home.
[2017-08-07] MEDS ORDERED: Sodium Chloride 0.9% 1,000 ML IV SCH (17:45)
[2017-08-07] MEDS: Aspirin 81 mg Enteric Coated Tablet PO SCH (21:49)
[2017-08-07] MEDS: Prenatal Vitamin 1 TAB PO SCH (21:53)
[2017-08-07] MEDS: Pravastatin Sodium 20 MG TAB PO SCH (21:53)
[2017-08-08 05:19] LABS: #Basophils 0.1 thou/uL (0.0-0.2); #Eosinphils 0.1 thou/uL (0.0-0.7); #Lymphocytes 1.1 thou/uL (1.20-3.40); #Monocytes 0.6 thou/uL (0.11-0.59); #Neutrophils 2.6 thou/uL (1.40-6.50); %Basophils 1.1 % (0.0-1.0); %Eosinophils 1.5 % (0.0-10.0); %Lymphocytes 25.9 % (21.0-51.0); %Monocytes 12.9 % (0.0-10.0); %Neutrophils 58.5 % (42.0-75.0); Hemoglobin 8.2 g/dL (14.0-18.0); Mean Corpuscular Volume 93.9 fl (80.0-94.0); Mean Platelet Volume 8.3 fL (7.4-10.4); Platelet Count 187 thou/uL (130-400); RBC Distribution Width 14.2 % (11.5-14.5); Red Blood Cell (RBC) Count 2.66 mill/uL (4.70-6.10); White Blood Cell (WBC) Count 4.4 thou/uL (4.8-10.8)
[2017-08-08] MEDS: cloNIDine 0.1 MG TAB PO PRN (05:19)
[2017-08-08 05:49] LABS: Anion Gap 10 mmol/L (10-20); BUN (Urea Nitrogen) 46 mg/dL (8.4-25.7); Calc. Creatinine Clearance 45 mL/min (70-130); Calcium 8.1 mg/dL (7.8-10.44); Carbon Dioxide 19 mmol/L (23-31); Chloride 111 mmol/L (98-107); Estimated GFR-MDRD 45; Glucose 224 mg/dL (80-115); Potassium 3.9 mmol/L (3.5-5.1); Sodium 136 mmol/L (136-145)
[2017-08-08] MEDS: Carvedilol 3.125 MG TAB PO SCH (06:26)
[2017-08-08] MEDS: Tacrolimus 1 MG CAP PO SCH (08:45)
[2017-08-08] MEDS: Mycophenolate 250 MG CAP PO SCH (08:45)
[2017-08-08] MEDS: cloNIDine 0.1 MG TAB PO SCH (08:46)
[2017-08-08] MEDS: hydrALAZINE 25 MG TAB PO SCH (08:46)
[2017-08-08] MEDS: ULORIC 80 MG PO SCH (08:47)
[2017-08-08] MEDS: predniSONE 5 MG TAB PO SCH (08:47)
[2017-08-08] MEDS: TRESIBA (INSULIN DEGLUDEC) SC SCH (08:47)
[2017-08-08] MEDS: Heparin 5,000 UNITS/ML VIAL SC SCH (08:48)
[2017-08-08] MEDS ORDERED: Minoxidil 2.5 MG TAB PO SCH (09:00)
[2017-08-08] MEDS ORDERED: Isosorbide Dinitrate 20 MG TAB PO SCH ×2 (09:00→19:00)
[2017-08-08] MEDS ORDERED: NIFEdipine XL 90 MG TAB PO SCH (09:45)
--- NOTE | 2017-08-08 10:16 | PDOC.PN ---
- Subjective Encounter Start Date: 08/08/17 Encounter Start Time: 08:50 Patient seen and examined for uncontrolled HTN. No new complaints. No overnight events he is doing well, he slept well - Objective Resuscitation Status: Resuscitation Status FULL:Full Resuscitation MAR Reviewed: Yes Vital Signs & Weight: Vital Signs (12 hours) Temp Pulse Resp BP BP Pulse Ox 08/08/17 08:46 51 L 08/08/17 08:40 98.6 F 58 L 18 203/133 H 95 08/08/17 06:24 51 L 242/113 H 08/08/17 05:19 222/91 H 08/08/17 05:15 52 L 222/91 H 08/08/17 04:03 98.7 F 53 L 16 228/116 H 94 L 08/08/17 02:44 97 08/08/17 00:00 97.9 F 62 18 188/78 H 97 Weight Weight 154 lb 6.4 oz Most Recent Monitor Data Heart Rate from ECG 46 NIBP 200/59 NIBP BP-Mean 106 Respiration from ECG 15 SpO2 100 I&O: 08/07/17 08/08/17 08/09/17 06:59 06:59 06:59 Intake Total 840 1947 Output Total 850 1825 Balance -10 122 Result Diagrams: 08/08/17 04:50 08/08/17 04:50 Additional Labs: Accuchecks 08/08/17 08/07/17 08/07/17 05:33 20:31 16:18 POC Glucose 237 H 309 H 221 H 08/07/17 10:56 POC Glucose 174 H EKG Reviewed by me: Yes (nsr) Phys Exam - Physical Examination Constitutional: NAD HEENT: PERRLA, moist MMs, sclera anicteric Neck: no JVD, supple Respiratory: no wheezing, no rales, no rhonchi Cardiovascular: RRR, no significant murmur, no rub Gastrointestinal: soft, non-tender, no distention, positive bowel sounds Musculoskeletal: no edema, pulses present Neurological: non-focal, normal sensation, moves all 4 limbs Lymphatic: no nodes Psychiatric: normal affect, A&O x 3 Skin: no rash, normal turgor Dx/Plan (1) MONTRELL (acute kidney injury) Code(s): N17.9 - ACUTE KIDNEY FAILURE, UNSPECIFIED Status: Acute (2) Acute on chronic diastolic (congestive) heart failure Code(s): I50.33 - ACUTE ON CHRONIC DIASTOLIC (CONGESTIVE) HEART FAILURE Status : Resolved (3) Hypertensive urgency Code(s): I16.0 - HYPERTENSIVE URGENCY Status: Acute (4) Anemia of renal disease Code(s): D63.1 - ANEMIA IN CHRONIC KIDNEY DISEASE Status: Chronic (5) CAD (coronary artery disease) Code(s): I25.10 - ATHSCL HEART DISEASE OF [place] CORONARY ARTERY W/O ANG PCTRS Status: Chronic Qualifiers: Coronary Disease-Associated Artery/Lesion type: bypass graft [place] vs. 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 Diabetes mellitus complication status: with kidney complications Diabetes mellitus complication detail: with chronic kidney disease Chronic kidney disease stage : stage 2 (mild) Qualified Code(s): E11.22 - Type 2 diabetes mellitus with diabetic chronic kidney disease; N18.2 - Chronic kidney disease, stage 2 (mild) ; N18.2 - Chronic kidney disease, stage 2 (mild) (7) Dyslipidemia Code(s): E78.5 - HYPERLIPIDEMIA, UNSPECIFIED Status: Chronic (8) H/O kidney transplant Status: Chronic Comment: is on prograf, cellcept and prednisone (9) Moderate mitral regurgitation Code(s): I34.0 - NONRHEUMATIC MITRAL (VALVE) INSUFFICIENCY Status: Chronic (10) Secondary hyperparathyroidism of renal origin Code(s): N25.81 - SECONDARY HYPERPARATHYROIDISM OF RENAL ORIGIN Status: Chronic (11) Acute respiratory failure with hypoxia Code(s): J96.01 - ACUTE RESPIRATORY FAILURE WITH HYPOXIA Status: Resolved (12) Flash pulmonary edema Code(s): J81.0 - ACUTE PULMONARY EDEMA Status: Resolved - Plan cont current plan of care, plan discussed w/ family * creatinine is improved after IVF * his BP is still very high, will increase minoxidil 5 mg po daily, will increase isordil 40 mg po bid * clonidine increased TID yesterday * will try to give him medication as per his home timing * once all information security consultant clear, will consider discharge * discussed with nephrology * pt is asymptomatic at this point * he is high risk for readmission * discussed with bedside. Review of Systems - Review of Systems Eyes: negative: Pain, Vision Change, Conjunctivae Inflammation, Eyelid Inflammation, Redness, Other ENT: negative: Ear Pain, Ear Discharge, Nose Pain, Nose Discharge, Nose Congestion, Mouth Pain, Mouth Swelling, Throat Pain, Throat Swelling, Other Respiratory: negative: Cough, Dry, Shortness of Breath, Hemoptysis, SOB with Excertion, Pleuritic Pain, Sputum, Wheezing Cardiovascular: negative: chest pain, palpitations, orthopnea, paroxysmal nocturnal dyspnea, edema, light headedness, other Gastrointestinal: negative: Nausea, Vomiting, Abdominal Pain, Diarrhea, Constipation, Melena, Hematochezia, Other Genitourinary: negative: Dysuria, Frequency, Incontinence, Hematuria, Retention , Other Musculoskeletal: negative: Neck Pain, Shoulder Pain, Arm Pain, Back Pain, Hand Pain, Leg Pain, Foot Pain, Other Skin: negative: Rash, Lesions, Kade, Bruising, Other - Medications/Allergies Allergies/Adverse Reactions: Allergies Allergy/AdvReac Type Severity Reaction Status Date / Time amlodipine AdvReac Verified 02/03/17 23:26 doxazosin AdvReac Stomach Verified 02/03/17 23:26 Ache Medications: Current Medications Aspirin (Ecotrin) 81 mg PO SuTuThSa@2100 [facility] Last Admin: 08/07/17 21:49 Dose: 81 mg Bisacodyl (Dulcolax) 10 mg GA Q24H PRN PRN Reason: Constipation Carvedilol (Coreg) 3.125 mg PO 0700,1900 [facility] Clonidine (Catapres) 0.1 mg PO Q4H PRN PRN Reason: sbp>160 Last Admin: 08/08/17 05:19 Dose: 0.1 mg Clonidine (Catapres) 0.1 mg PO 0700,1200,1700 [facility] Dextrose/Water (Dextrose 50%) 25 gm SLOW IVP PRN PRN PRN Reason: Hypoglycemia Glucagon (Glucagon) 1 mg IM PRN PRN PRN Reason: Hypoglycemia Heparin Sodium (Porcine) (Heparin) 5,000 units SC TID [facility] Last Admin: 08/08/17 08:48 Dose: 5,000 units Hydralazine HCl (Apresoline) 10 mg SLOW IVP Q15MIN PRN PRN Reason: SBP>170 Last Admin: 08/07/17 10:25 Dose: 10 mg Hydralazine HCl (Apresoline) 100 mg PO 0500,1200,2100 [facility] Dextrose/Water (D5w) 1,000 mls @ 0 mls/hr IV .Q0M PRN; As Directed PRN Reason: Hypoglycemia Insulin Human Regular (Humulin R) 0 units SC .MODERATE SLIDING SC PRN PRN Reason: Moderate [place] Scale Last Admin: 08/07/17 17:03 Dose: 4 unit Insulin Human Regular (Humulin R) 0 units SC .BEDTIME SLIDING SC PRN; Protocol PRN Reason: BEDTIME SLIDING SCALE Last Admin: 08/07/17 22:03 Dose: 4 unit Isosorbide Dinitrate (Isordil) 40 mg PO 0500,1900 [facility] Minoxidil (Minoxidil) 5 mg PO DAILY [facility] Last Admin: 08/08/17 08:46 Dose: 5 mg Mycophenolate Mofetil (Cellcept) 500 mg PO BID [facility] Last Admin: 08/08/17 08:45 Dose: 500 mg Nifedipine (Procardia Xl) 90 mg PO 0700 [facility] Nifedipine (Procardia Xl) 90 mg PO ONE [facility] Stop: 08/08/17 11:00 Pantoprazole Sodium (Protonix) 40 mg PO QAM [facility] Last Admin: 08/08/17 08:47 Dose: 40 mg Uloric 80 Mg Tab 1 each PO DAILY [facility] Last Admin: 08/08/17 08:47 Dose: 1 each Tresiba (Insulin (Degludec)) 0 each SC DAILY [facility] Last Admin: 08/08/17 08:47 Dose: 1 each Pravastatin Sodium (Pravachol) 20 mg PO QPM [facility] Last Admin: 08/07/17 21:53 Dose: 20 mg Prednisone (Prednisone) 5 mg PO DAILY [facility] Last Admin: 08/08/17 08:47 Dose: 5 mg Multivit/Folic Acid/Iron ( Vitamin) 1 tab PO QPM [facility] Last Admin: 08/07/17 21:53 Dose: 1 tab Sodium Chloride (Flush - Normal Saline) 10 ml IVF Q12HR [facility] Last Admin: 08/08/17 09:36 Dose: Not Given Sodium Chloride (Flush - Normal Saline) 10 ml IVF PRN PRN PRN Reason: Saline Flush Last Admin: 08/06/17 05:52 Dose: 10 ml Tacrolimus (Prograf) 6 mg PO BID [facility] Last Admin: 08/08/17 08:45 Dose: 6 mg
[2017-08-08] MEDS: Insulin Regular 300 UNITS/3 ML VIAL SC PRN (11:57)
[2017-08-08] MEDS ORDERED: hydrALAZINE 25 MG TAB PO SCH (12:00)
[2017-08-08] MEDS ORDERED: cloNIDine 0.1 MG TAB PO SCH (12:00)
[2017-08-08 12:26] VITALS: BP 174/93; TEMP 97.9
--- NOTE | 2017-08-08 13:35 | DIS ---
DATE OF ADMISSION: 08/02/2017 DATE OF DISCHARGE: 08/08/2017 PRIMARY CARE PHYSICIAN: Dr. Chito Zabala. DISCHARGE DISPOSITION: Home. PRIMARY DISCHARGE DIAGNOSES: 1. Acute kidney injury. 2. Hypertensive urgency. 3. Flash pulmonary edema, resolved. 4. Acute respiratory failure with hypoxia, resolved. 5. Acute on chronic diastolic heart failure, resolved. SECONDARY DISCHARGE DIAGNOSES: Secondary hyperparathyroidism of renal origin, moderate mitral regurg itation, history of kidney transplant, dyslipidemia, diabetes type 2, coronary artery disease, anemia of renal disease, hypertension. PRIMARY PROCEDURE/OPERATION: None. RADIOLOGICAL INVESTIGATION: Chest x-ray initially on admission showed pulmonary vascular congestion. Echocardiography showed EF 60%-65%, LVH, moderate mitral regurgitation, abdominal ultrasound and a renal ultrasound was unremarkable, it was showing high resistive or quitting dialysis in the transpla nted kidney. SIGNIFICANT LABS: WBC 4.4, hemoglobin 8.2, platelet 187. Sodium 136, potassium 3.9, BUN 46, creatin ine 1.54, calcium 8.1. Tacrolimus 8.0. DISCHARGE MEDICATIONS: Following medications changed hydralazine 100 mg p.o. t.i.d., isosorbide jareth trate 40 mg p.o. b.i.d., minoxidil 5 mg p.o. daily. Continue following medication: Tylenol #3 one t ablet q.6 hourly p.r.n., aspirin 81 mg p.o. daily, Tums 1000 mg p.o. q.6 hourly p.r.n., Coreg 3.125 m g p.o. b.i.d., clonidine 0.1 mg t.i.d., Colace 250 mg p.o. daily, Uloric 80 mg p.o. daily, Lasix 40 m g p.o. daily, Tresiba 5 units subcu daily, Humalog insulin as per sliding scale, CellCept 500 mg p.o. b.i.d., Procardia-XL 90 mg p.o. daily, Protonix 40 mg p.o. b.i.d., prednisone 5 mg p.o. daily, prava statin 20 mg p.o. daily and vitamin 1 tablet p.o. daily, sodium bicarbonate 1300 mg p.o. b.i .d., tacrolimus 0.5 mg 12 capsule p.o. b.i.d. CONTRAINDICATIONS: None. CODE STATUS: FULL CODE. INPATIENT CONSULTANTS: Dr. Meier was consulted for respiratory failure. Dr. Kim and Dr. Zoë alvarez, Nephrology was following while in hospital. Dr. Schaffer was consulted for diastolic heart failure. TEST RESULTS PENDING ON DISCHARGE: None. ALLERGIES: AMLODIPINE, DOXAZOSIN. DISCHARGE PLAN: Post hospital, the patient is advised to follow up with Dr. Kim in 1 week. The jacey ent is also advised to follow with primary care physician in 1 week. The patient will follow up with the transplant physician in [place]. The patient will make appointment with Dr. Schaffer in 2 weeks. The patient has an appointment with primary care physician on 08/10/2017 at 9:40 a.m. HOSPITAL COURSE: A 71-year-old male with above-mentioned medical problem who was admitted by Dr. Gm chung on 08/02/2017. Please see her H&P for further detail. This patient was admitted for increasing s hortness of breath. He was hypoxic. He was requiring BiPAP. He was found with flash pulmonary meliza a. He was having acute respiratory failure. He was admitted in ICU. Dr. Meier was consulted. Th e patient was treated with nitroglycerin drip and Lasix. Cardiology was consulted as well as a Nephr ology was consulted while in hospital. We resumed the patient renal transplant immunosuppressive med ication while in hospital with Lasix and after controlling blood pressure very well, the patient's co ndition significantly improved. We continued with that diuretic therapy and patient's orthopnea, PND significantly improved. The patient was able to sleep very well on telemetry floor. Upon stabiliza tion, this patient was transferred from ICU to telemetry floor. During this admission, the patient's blood pressure was difficult to control and that is why Nephrology adjusted above-mentioned medicati on. This admission, hydralazine was increased to 100 mg t.i.d., minoxidil was added and isosorbide d initrate was increased to 40 mg b.i.d. While in hospital, we noted that even though the patient's blood pressure was running on the high arabella e, but he was completely asymptomatic. He was attributing that he was not getting medication as per his home timing and that was contributing to his high blood pressure while in hospital. We did a renal ultrasound and ruled out renal artery stenosis. We also send aldosterone level, plasm a rennin activity and metanephrine level. The result is pending by the time of dictation. The patie nt will follow up with Nephrology, primary care physician for followup on result. Today, Dr. Kim cleared him for discharge. Dr. Schaffer also cleared him for discharge. The patient wi ll need outpatient follow up with Dr. Fontanez for possible sleep study evaluation. The patient is seen and examined at bedside today. Plan of care discussed with the patient and . The patient and family member agreed to go home today with this high blood pressure. At this point , the patient's family member will keep a diary of blood pressure and follow up with primary care genet mcarthur for further adjustment of therapy. The patient is seen and examined at bedside today. Please see my progress note from today for furthe r detail.
--- NOTE | 2017-08-08 17:48 | PDOC.CTH ---
Cardiology Progress Note - Subjective He is doing better. Creatinine better after IV fluids last night. - Objective Vital Signs Temp Pulse Resp BP Pulse Ox 08/08/17 11:55 97.9 F 69 18 174/93 H 95 08/08/17 10:45 196/76 H 08/08/17 08:46 51 L 08/08/17 08:40 98.6 F 58 L 18 203/133 H 95 08/08/17 06:24 51 L 242/113 H Weight 154 lb 6.4 oz 08/07/17 08/08/17 08/09/17 06:59 06:59 06:59 Intake Total 840 1947 Output Total 850 1825 Balance -10 122 - Physical Examination General/Neuro: alert & oriented x3, NAD Neck: no JVD present Lungs: CTA, unlabored respirations Heart: RRR Abdomen: NT/ND Extremities: other: (no edema) - Telemetry Telemetry Rhythm: NSR - Labs Result Diagrams: 08/08/17 04:50 08/08/17 04:50 Troponin/CKMB CK-MB (CK-2) 3.8 ng/mL (0-6.6) 08/02/17 04:26 Troponin I 0.112 ng/mL (< 0.028) H 08/02/17 07:05 - Assessment/Plan 1. Flash pulmonary edema, resolved. 2. Acute on chronic diastolic heart failure, improved. 3. HTN 4. S/P Renal transplantation 5. S/P CABG x 3 6. Acute on chronic renal failure. Creatinine up to 2.0 PLAN: - Continue to up titrate BP meds. - BP better today as well as better renal function. Will plan on up titration as an outpatient. - May discharge home any time from cardiac perspective.
[2017-08-08] MEDS ORDERED: Carvedilol 3.125 MG TAB PO SCH (19:00)
[2017-08-09] MEDS ORDERED: NIFEdipine XL 90 MG TAB PO SCH (07:00)
== END 2017-08-08 15:02 | disposition home or self-care (01) | DRG 291 ==
LOC: ERS 04:07 → CCU 05:15 → 2NO 08-05 16:13
PROVIDERS: ADMIT Internal Medicine; ATTEND Internal Medicine
DX: I13.0 Hypertensive heart and chronic kidney disease with heart failure and stage 1 through stage 4 chronic kidney disease, or unspecified chronic kidney disease (principal); I50.33 Acute on chronic diastolic (congestive) heart failure; Z94.0 Kidney transplant status; N17.9 Acute kidney failure, unspecified; N18.3 Chronic kidney disease, stage 3 (moderate); E78.5 Hyperlipidemia, unspecified; I25.10 Atherosclerotic heart disease of native coronary artery without angina pectoris; Z95.1 Presence of aortocoronary bypass graft; G47.33 Obstructive sleep apnea (adult) (pediatric); I16.0 Hypertensive urgency; E11.22 Type 2 diabetes mellitus with diabetic chronic kidney disease; E03.9 Hypothyroidism, unspecified; Z79.899 Other long term (current) drug therapy; Z79.52 Long term (current) use of systemic steroids; Z79.2 Long term (current) use of antibiotics; Z79.4 Long term (current) use of insulin; Z88.8 Allergy status to other drugs, medicaments and biological substances; I34.0 Nonrheumatic mitral (valve) insufficiency; K21.9 Gastro-esophageal reflux disease without esophagitis; D63.1 Anemia in chronic kidney disease
CPT/HCPCS: 36415; 36416; 71045; 76700; 76706; 76770; 80048; 80053; 80069; 80197; 82088; 82553; 82805; 83835; 83880; 84244; 84484; 85025; 93005; 93306; 93798; 94760; 96365; 96375; A4216; C9113; J0360; J1644; J1815; J1940; J7070; J7507; J7517; J7620; S0028

== ENCOUNTER 2017-09-12 14:08 | Outpatient (CLI) | payer MEDICARE | END 2017-09-12 14:09 | disposition home or self-care (01) | LOC: BICRAD 14:08 | PROVIDERS: ATTEND Internal Medicine Cardiovascular Disease | DX: J90 Pleural effusion, not elsewhere classified (principal); I70.90 Unspecified atherosclerosis | CPT/HCPCS: 71046 ==

== ENCOUNTER 2017-10-29 10:45 | Outpatient (CLI) | payer MEDICARE | END 2017-10-29 10:46 | disposition home or self-care (01) | LOC: BICRAD 10:45 | PROVIDERS: ATTEND Family Medicine | DX: J18.0 Bronchopneumonia, unspecified organism (principal); J90 Pleural effusion, not elsewhere classified; I51.7 Cardiomegaly | CPT/HCPCS: 36415; 71046; 80048; 83036; 85025 ==

== ENCOUNTER 2017-12-11 09:50 | Outpatient (CLI) | payer MEDICARE ==
--- NOTE | 2017-12-11 12:12 | RAD ---
CHEST TWO VIEWS: HISTORY: Pleural effusion. COMPARISON: 04/09/2017 and 10/29/2017 FINDINGS: There are stable sternotomy wires. Stable atherosclerosis of the aorta. Heart is enlarged. Pulmona ry vessels are within normal limits. Increased interstitial opacities throughout the lung parenchyma . The degree of opacification in the right hemithorax has slightly decreased, in terms of the lung p arenchyma. However, there does appear to be slightly increased right-sided pleural effusion. A smal l left-sided effusion is noted. No pneumothorax. IMPRESSION: Improved aeration in the lung parenchymal in the right hemithorax. Worsening right-sided pleural eff usion. POS: [facility]
== END 2017-12-11 09:51 | disposition home or self-care (01) ==
LOC: RAD 09:50
PROVIDERS: ATTEND Internal Medicine
DX: R06.00 Dyspnea, unspecified (principal); J90 Pleural effusion, not elsewhere classified
CPT/HCPCS: 71046

== ENCOUNTER 2018-03-25 10:08 | Outpatient (CLI) | payer MEDICARE ==
--- NOTE | 2018-03-25 10:54 | RAD ---
TWO VIEW CHEST: History: Dyspnea. Comparison: 12-11-17 FINDINGS: Opacification in the right lung base with associated right effusion. A small left effusion. Upper jermaine g zones appear clear. Mild cardiomegaly with post op sternotomy change. IMPRESSION: Bilateral effusions, larger on the right with parenchymal opacification indicating consolidation and atelectasis in the right lung base. Underlying mass lesion not excluded. No interval change when comp ared to exam of 12-11-17. POS: [facility]
== END 2018-03-25 10:09 | disposition home or self-care (01) ==
LOC: RAD 10:08
PROVIDERS: ATTEND Internal Medicine
DX: R06.00 Dyspnea, unspecified (principal); J90 Pleural effusion, not elsewhere classified; J18.1 Lobar pneumonia, unspecified organism; J98.11 Atelectasis; R91.8 Other nonspecific abnormal finding of lung field
CPT/HCPCS: 71046

== ENCOUNTER 2018-04-11 11:21 | Outpatient (CLI) | payer MEDICARE ==
--- NOTE | 2018-04-11 12:36 | RAD ---
CHEST 2 VIEWS: HISTORY: Dyspnea. COMPARISON: 03/25/2018. FINDINGS: Cardiac silhouette is enlarged. Pulmonary vasculature is slightly more engorged than on the prior st udy. Mediastinum is midline with postoperative changes and aortic calcification. Bibasilar infiltra juno have worsened since the prior study. Bilateral pleural fluid has also increased slightly. No ev idence of pneumothorax. IMPRESSION: 1. Slight interval increase in bilateral pleural fluid, right greater than left, and patchy bibasila r infiltrates. 2. Atherosclerosis. 3. Cardiomegaly. POS: [facility]
== END 2018-04-11 11:22 | disposition home or self-care (01) ==
LOC: RAD 11:21
PROVIDERS: ATTEND Internal Medicine
DX: R06.00 Dyspnea, unspecified (principal); R91.8 Other nonspecific abnormal finding of lung field; J94.8 Other specified pleural conditions; I70.90 Unspecified atherosclerosis; I51.7 Cardiomegaly
CPT/HCPCS: 71046

== ENCOUNTER 2018-08-19 12:16 | Outpatient (CLI) | payer MEDICARE ==
[~2018-08-19 12:16] MED LIST changes: -Heparin 1,000 UNITS/ML VIAL ONE; +ISOVUE-370 76%-LOCM 1 ML ONE
--- NOTE | 2018-08-19 13:41 | CT ---
CT THORAX WITH CONTRAST: DATE: 08/19/2018 HISTORY: 72-year-old male with abnormal chest radiograph and laryngeal mass. Evaluate for metastasis. COMPARISON: 12/11/2001 FINDINGS: All of the following findings are new since 2001. There is a right pleural effusion that occupies approximately 20-30% volume of the right hemithoracic cavity, and a similar left pleural effusion. There is a moderately large region of right lower lobe consolidation broadly abutting the right pleural effusion, probably representing atelectasis. Th ere is a smaller such region in the left lower lobe abutting the left pleural effusion. There is an approximately 1.5 x 1 x 1.5 cm soft tissue density irregularly-shaped nodule broadly abut ting the posterior lateral aspect of the right pleural surface at the right upper lobe. No pneumothorax or pulmonary edema. Heavy atherosclerotic calcification of nonaneurysmal thoracic aorta, left main, LAD, great vessels, RCA, and LCx. These are much greater than on the previous CT. Cardiomegaly, new since previous study. Nonspecific scattered small mediastinal lymph nodes. IMPRESSION: 1. Bilateral small to moderate-sized pleural effusions. 2. Right lower lobe consolidation, probably representing atelectasis. 3. Lateral pleural-based right upper lobe irregularly-shaped pulmonary nodule. Nonspecific. Consider PET scan. 4. Coronary atherosclerotic disease. 5. Cardiomegaly.
--- NOTE | 2018-08-19 13:55 | CT ---
CT neck with contrast: DATE: 08/19/2018 HISTORY: 72-year-old male with laryngeal mass, status post partial resection. FINDINGS: There is an approximately 2.5 x 2 x 1.5 cm solid mass with slightly lower attenuation center, perhaps necrosis, occupying a significant portion of the left side of the larynx, markedly narrowing the laryngeal airway, partially effacing the left vallecula, involving the left aryepiglottic fold, and b roadly abutting the left side of the vallecula. It does not appear to involve the true vocal cord. A small portion of it may or may not involve a portion of the left false vocal cord. The mass crosses the midline to the right side posteriorly. There is diffuse edema of all superficial and deep soft tissues of the neck. There is a 1.5 x 1.5 x 2 cm necrotic left level 2 lymph node. There is a second necrotic lymph node inferior to that that measures approximately 1 x 1 x 1.5 cm. Heavy atherosclerotic calcification of bilateral carotid bulbs. IMPRESSION: 1. 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 2. There are 2 necrotic, malignant left level 2 cervical lymph nodes. 3. Diffuse edema of soft tissues, presumably representing post radiation edema.
== END 2018-08-19 12:17 | disposition home or self-care (01) ==
LOC: BICCT 12:16
PROVIDERS: ATTEND Otolaryngology
DX: J38.7 Other diseases of larynx (principal); I25.10 Atherosclerotic heart disease of native coronary artery without angina pectoris; J90 Pleural effusion, not elsewhere classified; R91.1 Solitary pulmonary nodule; J18.1 Lobar pneumonia, unspecified organism
CPT/HCPCS: 70491; 71260; Q9966

== ENCOUNTER 2018-11-02 14:03 | Emergency (ER) | payer MEDICARE ==
[2018-11-02 15:04] LABS: #Lymphocytes 1.7 thou/uL (1.20-3.40); #Monocytes 0.8 thou/uL (0.11-0.59); #Neutrophils 8.5 thou/uL (1.40-6.50); %Basophils 0.3 % (0.0-1.0); %Eosinophils 0.2 % (0.0-10.0); %Monocytes 6.8 % (0.0-10.0); %Neutrophils 77.6 % (42.0-75.0); Hemoglobin 9.6 g/dL (14.0-18.0); Mean Corpuscular HGB CONC 33.6 g/dL (32.0-36.0); Mean Corpuscular Hemoglobin 30.5 pg (27.0-31.0); Mean Corpuscular Volume 90.9 fL (78.0-98.0); Mean Platelet Volume 8.4 fL (7.4-10.4); Platelet Count 140 thou/uL (130-400); RBC Distribution Width 16.7 % (11.5-14.5); Red Blood Cell (RBC) Count 3.13 mill/uL (4.70-6.10); White Blood Cell (WBC) Count 10.9 thou/uL (4.8-10.8)
--- NOTE | 2018-11-02 15:15 | RAD ---
LEFT HAND THREE VIEWS: HISTORY: Left hand pain. FINDINGS: Degenerative changes are seen. There are vascular calcifications. No acute fracture, dislocation, o r bony destruction is identified. POS: [facility]
[2018-11-02 15:29] LABS: ALT (SGPT) Less than 7 U/L (8-55); AST (SGOT) 16 U/L (5-34); Alkaline Phosphatase 50 U/L (40-150); Anion Gap 13 mmol/L (10-20); BUN (Urea Nitrogen) 21 mg/dL (8.4-25.7); Bilirubin, Total 0.4 mg/dL (0.2-1.2); CK (CPK) 74 U/L (30-200); CRP (Inflammatory) 5.39 mg/dL (= or < 0.5); Calc. Creatinine Clearance 0 mL/min (70-130); Calcium 7.8 mg/dL (7.8-10.44); Carbon Dioxide 23 mmol/L (23-31); Chloride 107 mmol/L (98-107); Estimated GFR-MDRD 42; Globulin 2.7 g/dL (2.4-3.5); Glucose 184 mg/dL (83-110); Protein, Total 5.7 g/dL (5.8-8.1); Sodium 140 mmol/L (136-145)
[2018-11-02 15:33] LABS: Potassium 2.9 mmol/L (3.5-5.1)
[2018-11-02] MEDS ORDERED: Magnesium 2 GM/50 ML BAG (IN WATER) ONE (15:39)
[2018-11-02] MEDS ORDERED: Ketorolac Tromethamine 30 MG/ML VIAL ONE (15:39)
[2018-11-02] MEDS ORDERED: Potassium Chloride 20 MEQ TAB ONE ×2 (15:39→15:41)
[2018-11-02] MEDS ORDERED: Potassium Chloride 20 MEQ/100 ML PREMIX BAG ONE (15:41)
[2018-11-02] MEDS ORDERED: Morphine 4 MG/ML VIAL ONE (17:33)
[2018-11-02] MEDS ORDERED: Ondansetron PF 4 MG/2 ML Vial ONE (17:33)
== END 2018-11-02 18:03 | disposition home or self-care (01) ==
LOC: ERS 14:03
DX: M79.89 Other specified soft tissue disorders (principal); E11.9 Type 2 diabetes mellitus without complications; D50.9 Iron deficiency anemia, unspecified; E78.5 Hyperlipidemia, unspecified; I11.0 Hypertensive heart disease with heart failure; I50.9 Heart failure, unspecified; Z79.899 Other long term (current) drug therapy; Z79.4 Long term (current) use of insulin
CPT/HCPCS: 36415; 80053; 82550; 83605; 85025; 85652; 86140; 96374; 96375; J1885; J2270; J2405; J3475; J3480